=== PATIENT | female | born 1945 | race Caucasian/White ===

== ENCOUNTER 2016-07-15 09:25 | Emergency (ER) | payer OTHER, MEDICAID ==
[~2016-07-15] VITALS: Ht 170.2 cm; Wt 138.2 kg
[~2016-07-15 09:25] MED LIST: ALBU18HF INHALATION; AMLO-147 PO; ASPI-664 PO; ATOR80TA75 PO; BENZ-5 PO; BUME1TAB18 PO; CLOP75TA4 PO; DOCU100C26 PO; FENO160T10 PO; GABA-526 PO; INSU100C SQ; IPRA3AMP INHALATION; LEVO100T87 PO; MAGN400T28 PO; METO-448 PO; NEPH PO; NIAC1000 PO; OMEG1CAP2 PO; PANT40TA4 PO; POLY17PO6 PO; ROPI8TAB3 PO; SERT50TA6 PO; TEMA15CA PO; TRAM-40 PO; TRAM50TA2 PO; TRAZ100T15 PO
[2016-07-15 09:34] VITALS: Ht 170.2 cm; Wt 138.2 kg
[2016-07-15] MEDS ORDERED: ALBUTEROL 0.5% (NEB) 2.5 MG/0.5 ML AMP INH ONE (11:00)
[2016-07-15] MEDS ORDERED: IPRATROPIUM (NEB) 0.5 MG/2.5 ML AMP INH ONE (11:00)
[2016-07-15] MEDS ORDERED: METHYLPREDNISOLONE 125 MG INJ IM ONE (11:00)
[2016-07-15] MEDS ORDERED: AMLO-145 PO (11:14)
[2016-07-15] MEDS ORDERED: TEMA30CA PO (11:16)
[2016-07-15] MEDS ORDERED: BUME2TAB18 PO (11:17)
[2016-07-15] MEDS ORDERED: HYDR-905 PO (11:20)
[2016-07-15] MEDS ORDERED: METO5TAB65 PO (11:21)
[2016-07-15] MEDS ORDERED: LIDO5CRE6 TP (11:25)
[2016-07-15] MEDS ORDERED: MUPI15CR9 TOP (11:25)
[2016-07-15] MEDS ORDERED: DICL100G37 TOP (11:26)
[2016-07-15] MEDS ORDERED: CLOT15CR6 TOP (11:26)
[2016-07-15] MEDS ORDERED: FLUO60OI5 TOP (11:27)
--- NOTE | 2016-07-15 13:08 | RADRPT ---
PROCEDURE: XR Chest. CLINICAL INDICATION: Dyspnea, cough TECHNIQUE: Single frontal chest x-ray. COMPARISON: 12/12/2015 FINDINGS: No acute infiltrate, pleural effusion or pneumothorax is identified. There is stable mild cardiomeg fracisco. Aortic atherosclerotic calcification is noted. The osseous structures are remarkable for dege nerative spondylosis of the spine. IMPRESSION: 1. Stable mild cardiomegaly and aortic atherosclerosis. 2. No evidence of acute cardiopulmonary process. RPTAT: QQ .Sid Myles MD, MD Date Time Electronically viewed and signed by .Sid Myles MD, MD on 07/15/2016 13:08 .R/
[2016-07-15] MEDS ORDERED: ALBU8.5H3 INH (14:26)
[2016-07-15] MEDS ORDERED: HYDR15SO8 PO (14:26)
[2016-07-15] MEDS ORDERED: AZIT250T94 PO (14:26)
[2016-07-15] MEDS ORDERED: PRED20TA PO (14:26)
--- NOTE | 2016-07-15 14:32 | ERD ---
ER Documentation Chief Complaint Date/Time DATE: 07/15/16 TIME: 14:29 Chief Complaint BROUGHT IN VIA EMS FROM HOME DUE TO COUGH AND CONGESTION TODAY HPI This is a 71-year-old female who says she woke up this morning having some cough and congestion. No shortness of breath no fever. She states she was fine last night when she went to bed. She states that the cough is nonproductive. She has no body aches or runny nose no sore throat no abdominal pain nausea vomiting diarrhea. She says breathing in too much will induce a cough. ROS All systems reviewed and are negative except as per history of present illness. Medications Home Meds Active Scripts Hydrocodone Bit-Acetaminophen* (Lortab* Liq) 7.5 Mg-325 Mg/15 Ml Solution, 15 ML PO Q4H Y for PAIN, #120 ML Prov:MIKE LANGFORD DO 07/15/16 Albuterol Sulfate* (Proair HFA*) 8.5 Gm Hfa.aer.ad, 2 PUFF INH Q4, #1 INHALER Prov:MIKE LANGFORD DO 07/15/16 Prednisone* (Prednisone*) 20 Mg Tab, 60 MG PO DAILY for 5 Days, TAB Prov:MIKE LANGFORD DO 07/15/16 Azithromycin* (Zithromax*) 250 Mg Tablet, 250 MG PO .ZPACK DIRECTED, #6 TAB TAKE 500 MG (2 TABS) THE FIRST DAY THEN 250 MG (1 TAB) DAYS 2-5 Prov:MIKE LANGFORD DO 07/15/16 Reported Medications Fluocinonide* (Fluocinonide* Oint) 0.05%-60 Gm Oint..gm., 1 APPLIC TOP DAILY, EA 07/15/16 Clotrimazole-Betamethasone Diprop (Clotrimazole-Betamethasone Diprop) 15 Gm Cream.gm., 1 APPLIC TOP BID, TUB 07/15/16 Diclofenac Sodium* (Voltaren* Gel) 1% -100 Gm Gel, 2 GM TOP BID, #1 TUB 07/15/16 Mupirocin Calcium* (Mupirocin*) 2% - 15 Gram Cream..g., 1 APPLIC TOP TID, #1 TUB 07/15/16 Lidocaine (ANECREAM) 5 Gm Cream..g., 5 GM TP Q6 07/15/16 Metolazone* (Metolazone*) 5 Mg Tablet, 5 MG PO MONDAYS, TAB 07/15/16 Hydrocodone/Acetaminophen ([place] 7.5-325 Tablet) 1 Each Tablet, 1 EACH PO BID Y for SEVERE PAIN LEVEL 7-10, TAB 07/15/16 Bumetanide* (Bumetanide*) 2 Mg Tablet, 2 MG PO BID, TAB 07/15/16 Temazepam* (Temazepam*) 30 Mg Capsule, 30 MG PO HS Y for INSOMNIA, CAP 07/15/16 Amlodipine Besylate* (Amlodipine Besylate*) 5 Mg Tablet, 5 MG PO DAILY, #30 TAB 07/15/16 Levothyroxine Sodium* (Levothyroxine Sodium*) 100 Mcg Tablet, 100 MCG PO BEFORE BREAKFAST, #30 TAB 05/08/16 Pantoprazole* (Pantoprazole*) 40 Mg Tablet.dr, 40 MG PO AC BREAKFAST, TAB 05/08/16 [place]-3 Acid Ethyl Esters (Lovaza) 1 Gm Capsule, 2 GM PO BID, CAP 05/08/16 Benzonatate* (Benzonatate*) 100 Mg Capsule, 100 MG PO TID Y for COUGH, CAP 05/08/16 Ipratropium-Albuterol (Ipratropium-Albuterol) 0.5-3 Mg/3 Ml Ampul.neb, 3 ML INHALATION Q4, #30 VIAL 02/07/16 Albuterol Sulfate* (Ventolin HFA*) 18 Gm Hfa.aer.ad, 2 PUFF INHALATION Q4H, #1 INHALER 02/07/16 Insulin Lispro (Humalog) 100 Unit/1 Ml Cartridge, 150 UNIT SQ DAILY 02/07/16 Trazodone Hcl* (Trazodone Hcl*) 100 Mg Tablet, 100 MG PO QHS, #30 TAB 02/07/16 Tramadol Hcl* (Ultram*) 50 Mg Tablet, 50 MG PO Q12 Y for PAIN, TAB 12/13/15 Sertraline Hcl* (Sertraline Hcl*) 50 Mg Tablet, 50 MG PO DAILY, #30 TAB 12/13/15 Ropinirole HCl* (Ropinirole ER*) 8 Mg Tab.er.24h, 8 MG PO QHS, TAB.SA 12/13/15 Niacin* (Niacin* ER) 1,000 Mg Tablet.sa, 1000 MG PO QHS, #30 TAB 12/13/15 Metoprolol Tartrate* (Lopressor*) 25 Mg Tab, 25 MG PO BID, #60 TAB 12/13/15 Gabapentin* (Gabapentin*) 600 Mg Tablet, 600 MG PO TID, #90 TAB 12/13/15 Fenofibrate (Triglide) 160 Mg Tablet, 160 MG PO DAILY, TAB 12/13/15 Docusate Sodium* (Doc-Q-Lace*) 100 Mg Capsule, 100 MG PO BID Y for CONSTIPATION , CAP 12/13/15 Clopidogrel Bisulfate* (Clopidogrel Bisulfate*) 75 Mg Tablet, 75 MG PO DAILY, # 30 TAB 12/13/15 Atorvastatin* (Atorvastatin*) 80 Mg Tablet, 80 MG PO QHS, #30 TAB 12/13/15 Aspirin* (Aspirin* (EC)) 81 Mg Tablet.dr, 81 MG PO DAILY, TAB 12/13/15 Discontinued Reported Medications Magnesium Oxide* (Magnesium Oxide*) 400 Mg Tablet, 400 MG PO BID, TAB 05/08/16 Polyethylene Glycol* (Miralax*) 17 Gm Powd.pack, 17 GM PO DAILY, #30 PACKET 05/08/16 Amlodipine Besylate* (Amlodipine Besylate*) 10 Mg Tablet, 10 MG PO DAILY, #30 TAB 05/08/16 Temazepam* (Temazepam*) 15 Mg Capsule, 30 MG PO HS Y for INSOMNIA, CAP 12/13/15 Multivit/Ca Carb/B Cmplx/Fa* (Heather-Mary Anne*) 1 Tab Tab, 1 TAB PO DAILY, TAB 12/13/15 Bumetanide* (Bumetanide*) 1 Mg Tablet, 1 MG PO BID, TAB 12/13/15 Discontinued Scripts Tramadol HCl (Tramadol HCl) 50 Mg Tablet, 50 MG PO Q6 Y for PAIN, #20 TAB Prov:DAVONTE MATHIS MD 05/08/16 Allergies Allergies: Coded Allergies: lovastatin (Verified Allergy, Unknown, 05/08/16) rosuvastatin (Verified Allergy, Unknown, 05/08/16) PMhx/Soc History of Surgery: Yes (LTKR, R fem sx, L fem sx with metal, stent placement, cholecystectomy) Anesthesia Reaction: No Hx Neurological Disorder: No Hx Respiratory Disorders: Yes (sleep apnea) Hx Cardiac Disorders: Yes (CHF, past heart attack, HTN, CAD, HDL) Hx Psychiatric Problems: Yes (DEPRESSION) Hx Miscellaneous Medical Probl: Yes (DM, dyslipidemia, CKD,uterine fibroid) Hx Alcohol Use: No Hx Substance Use: No Hx Tobacco Use: No Smoking Status: Never smoker FmHx Family History: No coronary disease Physical Exam Vitals Vital Signs Date Time Temp Pulse Resp B/P Pulse Ox O2 Delivery O2 Flow Rate FiO2 07/15/16 13:15 73 19 96/76 100 Nasal Cannula 07/15/16 11:01 62 20 94 Nasal Cannula 2.0 07/15/16 09:34 98.4 73 18 121/58 97 Physical Exam Const: Well-developed, well-nourished Head: Atraumatic, normocephalic Eyes: Normal Conjunctiva, PERRLA, EOMI, normal sclera, no nystagmus ENT: Normal External Ears, Nose and Mouth, moist mucus membranes. Neck: Full range of motion. No meningismus, no lymphadenopathy. Resp: Clear to auscultation bilaterally, no wheezing, rhonchi, rales Cardio: Regular rate and rhythm, no murmurs, S1 S2 present Abd: Soft, non tender x 4, non distended. Normal bowel sounds, no guarding or rebound, no pulsitile abdominal masses or bruits Skin: No petechiae or rashes, no ecchymosis , no maculopapular rash Back: No midline or flank tenderness Ext: No cyanosis, or edema, FROM x 4, normal inspection, neurovascularly intact x 4 Neur: Awake and alert, STR 5/5 x 4, sensation intact x 4, no focal findings, cerebellum intact Psych: Normal Mood and Affect Results 24 hrs Current Medications Medications (Trade) Dose Ordered Sig/Bucky Route PRN Reason Start Time Stop Time Status Last Admin Dose Admin Methylprednisolone Sodium Succinate (Solu-Medrol) 125 mg ONCE ONCE IM 07/15/16 11:00 07/15/16 11:01 DC 07/15/16 10:57 Albuterol (Proventil 0.5% (Neb)) 7.5 mg ONCE ONCE INH 07/15/16 11:00 07/15/16 11:01 DC 07/15/16 11:00 Ipratropium [place] (Atrovent 0.02% (Neb)) 1.5 mg ONCE ONCE INH 07/15/16 11:00 07/15/16 11:01 DC 07/15/16 11:00 Procedures/MDM PROCEDURE: XR Chest. CLINICAL INDICATION: Dyspnea, cough TECHNIQUE: Single frontal chest x-ray. COMPARISON: 12/12/2015 FINDINGS: No acute infiltrate, pleural effusion or pneumothorax is identified. There is stable mild cardiomegaly. Aortic atherosclerotic calcification is noted. The osseous structures are remarkable for degenerative spondylosis of the spine. IMPRESSION: 1. Stable mild cardiomegaly and aortic atherosclerosis. 2. No evidence of acute cardiopulmonary process. RPTAT: QQ .Sid Myles MD, MD Date Time Electronically viewed and signed by .Sid Myles MD, MD on 07/15/2016 13: 08 .R/ CC: MIKE LANGFORD DO No evidence of pneumonia. This patient has bronchitis will treat appropriately with Zithromax, prednisone, albuterol inhaler and Lortab elixir Vitals are stable discharged in stable condition Departure Diagnosis: Primary Impression: Bronchitis Condition: Stable Patient Instructions: Bronchitis, Antiobiotic Treatment (Adult) MIKE LANGFORD DO Jul 15, 2016 14:32
[2016-07-15 15:13] VITALS: BP 117/62; PULSE 78; RESP 18
== END 2016-07-15 15:26 | disposition home or self-care (01) ==
LOC: E/R 09:25
DX: J20.9 Acute bronchitis, unspecified (principal); I12.9 Hypertensive chronic kidney disease with stage 1 through stage 4 chronic kidney disease, or unspecified chronic kidney disease; N18.9 Chronic kidney disease, unspecified; I25.10 Atherosclerotic heart disease of native coronary artery without angina pectoris; I50.9 Heart failure, unspecified; E11.9 Type 2 diabetes mellitus without complications; Z79.82 Long term (current) use of aspirin; Z96.652 Presence of left artificial knee joint; Z95.5 Presence of coronary angioplasty implant and graft; Z79.4 Long term (current) use of insulin
CPT/HCPCS: 71010; 82962; 94644; 96372; 99284; J2930

== ENCOUNTER 2016-07-21 09:04 | Inpatient (IN) | payer OTHER ==
[2016-07-21] VITALS (7 sets, daily range): BP systolic 113–129; BP diastolic 50–56; PULSE 66–68; RESP 18–20; Ht 170.2 cm; Wt 126.3 kg
[~2016-07-21] VITALS: Ht 170.2 cm; Wt 126.3 kg
[~2016-07-21 09:04] MED LIST changes: +ALBU8.5H3 INH; +AMLO-145 PO; -AMLO-147 PO; +AZIT250T94 PO; -BUME1TAB18 PO; +BUME2TAB18 PO; +CLOT15CR6 TOP; +DICL100G37 TOP; +FLUO60OI5 TOP; +HYDR-905 PO; +HYDR15SO8 PO; +LIDO5CRE6 TP; -MAGN400T28 PO; +METO5TAB65 PO; +MUPI15CR9 TOP; -NEPH PO; -POLY17PO6 PO; +PRED20TA PO; -TEMA15CA PO; +TEMA30CA PO; -TRAM50TA2 PO
[2016-07-21] MEDS ORDERED: SOD CHLORIDE 0.9% 1,000 ML IV STA ×2 (09:33→10:29)
[2016-07-21 10:04] LABS: BASOPHILS % 0.2 % (0.0-2.0); EOSINOPHILS % 0.2 % (0.0-7.0); HEMATOCRIT 40.6 % (37.0-47.0); HEMOGLOBIN 13.3 g/dl (12.0-16.0); LYMPHOCYTES # 1.3 10^3/ul (0.8-2.9); LYMPHOCYTES % 11.4 % (15.0-51.0); MEAN CORPUSCULAR HEMOGLOBIN 28.4 pg (29.0-33.0); MEAN CORPUSCULAR HGB CONC 32.8 g/dl (32.0-37.0); MEAN CORPUSCULAR VOLUME 86.7 fl (82.0-101.0); MEAN PLATELET VOLUME 8.2 fl (7.4-10.4); MONOCYTE # 0.9 10^3/ul (0.3-0.9); NEUTROPHIL # 9.3 10^3/ul (1.6-7.5); NEUTROPHILS % 80.2 % (39.0-77.0); PLATELET COUNT 339 10^3/UL (140-440); RED BLOOD COUNT 4.68 10^6/ul (4.20-5.40); RED CELL DISTRIBUTION WIDTH 15.8 % (11.5-14.5); UNCORRECTED WBC 11.6 10^3/ul (4.8-10.8); WHITE BLOOD COUNT 11.6 10^3/ul (4.8-10.8)
[2016-07-21 10:08] LABS: CONDITION 1; LH ANALYZER COMMENTS 1
[2016-07-21 10:15] LABS: POTASSIUM 4.4 mmol/L (3.5-5.1)
[2016-07-21 10:17] LABS: CREATININE 3.07 mg/dl (0.44-1.00)
[2016-07-21 10:18] LABS: CALCIUM 9.5 mg/dl (8.4-10.2); MAGNESIUM 2.9 mg/dl (1.7-2.5); PHOSPHORUS 6.4 mg/dl (2.5-4.9)
[2016-07-21 10:50] LABS: ADD UMIC YES; URINE BILIRUBIN (Dip) NEGATIVE (NEGATIVE); URINE BLOOD (Dip) 2+ (NEGATIVE); URINE COLOR LT. YELLOW (YELLOW); URINE GLUCOSE (Dip) >=1000 % (NEGATIVE); URINE KETONES (Dip) NEGATIVE (NEGATIVE); URINE LEUKOCYTE ESTERASE (Dip) 1+ (NEGATIVE); URINE NITRITE (Dip) NEGATIVE (NEGATIVE); URINE TOTAL PROTEIN (Dip) NEGATIVE (NEGATIVE); URINE UROBILINOGEN (Dip) 0.2 E.U./dL (0.1-1.0)
--- NOTE | 2016-07-21 10:59 | RADRPT ---
PROCEDURE: XR Knee. CLINICAL INDICATION: Trauma, pain TECHNIQUE: AP, lateral and oblique view of the right knee were obtained. The images reviewed on a PACS workstation. COMPARISON: None. FINDINGS: The patient is status post plate, screw, an intramedullary matt fixation of the femur. There is mode rate to severe medial femoral tibial joint space narrowing. There is a vertical fracture line throu gh the lateral tibia, extending to the articular surface. There is minimal distraction of the artic ular surface, up to 2 mm. There is moderate patellofemoral degenerative change. IMPRESSION: 1. Vertical fracture through the lateral tibial plateau, with minimal distraction. 2. 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 RPTAT: HBST .Ricardo Interiano MD, Date Time Electronically viewed and signed by .Ricardo Interiano MD, on 07/21/2016 10:58 .T/
[2016-07-21 11:01] LABS: BACTERIA,URINE FEW; SQUAMOUS EPITHELIAL CELL,UR FEW
--- NOTE | 2016-07-21 11:20 | ERA ---
ER Documentation Chief Complaint Date/Time DATE: 07/21/16 TIME: 11:20 Chief Complaint BROUGHT IN VIA EMS DUE TO FALL HPI 71y/o female with a history of insulin-dependent diabetes mellitus on insulin pump, chronic kidney disease, coronary artery disease status post PCI, obstructive sleep apnea on CPAP, dyslipidemia, morbid obesity, depression and anxiety brought to the ED by rescue ambulance complaining of worsening, moderate to severe sharp, nonradiating right knee pain after a slip and fall. She is unable to weight-bear due to pain, no relieving factors. She was seen in the ED 07/15/2016 for bronchitis and since discharge has been feeling weak and lightheaded and fell today. Denies chest pain or palpitations. No syncope or LOC. Denies headache or neck pain. Ongoing, mild nonproductive cough but no shortness of breath or wheezing. No chest pain or palpitations. Denies abdominal pain, nausea, vomiting, diarrhea or constipation. Chronic indwelling Garcia due to incontinence. Denies calf pain or swelling. No fevers or chills. ROS All systems reviewed and are negative except as per history of present illness. Medications Home Meds Active Scripts Albuterol Sulfate* (Proair HFA*) 8.5 Gm Hfa.aer.ad, 2 PUFF INH Q4, #1 INHALER Prov:MIKE LANGFORD DO 07/15/16 Prednisone* (Prednisone*) 20 Mg Tab, 60 MG PO DAILY for 5 Days, TAB Prov:MIKE LANGFORD DO 07/15/16 Azithromycin* (Zithromax*) 250 Mg Tablet, 250 MG PO .CAROLINE DIRECTED, #6 TAB TAKE 500 MG (2 TABS) THE FIRST DAY THEN 250 MG (1 TAB) DAYS 2-5 Prov:MIKE LANGFORD DO 07/15/16 Reported Medications Fluocinonide* (Fluocinonide* Oint) 0.05%-60 Gm Oint..gm., 1 APPLIC TOP DAILY, EA 07/15/16 Clotrimazole-Betamethasone Diprop (Clotrimazole-Betamethasone Diprop) 15 Gm Cream.gm., 1 APPLIC TOP BID, TUB 07/15/16 Diclofenac Sodium* (Voltaren* Gel) 1% -100 Gm Gel, 2 GM TOP BID, #1 TUB 07/15/16 Mupirocin Calcium* (Mupirocin*) 2% - 15 Gram Cream..g., 1 APPLIC TOP TID, #1 TUB 07/15/16 Lidocaine (ANECREAM) 5 Gm Cream..g., 5 GM TP Q6 07/15/16 Metolazone* (Metolazone*) 5 Mg Tablet, 5 MG PO MONDAYS, TAB 07/15/16 Hydrocodone/Acetaminophen ([place] 7.5-325 Tablet) 1 Each Tablet, 1 EACH PO BID Y for SEVERE PAIN LEVEL 7-10, TAB 07/15/16 Bumetanide* (Bumetanide*) 2 Mg Tablet, 2 MG PO BID, TAB 07/15/16 Temazepam* (Temazepam*) 30 Mg Capsule, 30 MG PO HS Y for INSOMNIA, CAP 07/15/16 Amlodipine Besylate* (Amlodipine Besylate*) 5 Mg Tablet, 5 MG PO DAILY, #30 TAB 07/15/16 Levothyroxine Sodium* (Levothyroxine Sodium*) 100 Mcg Tablet, 100 MCG PO BEFORE BREAKFAST, #30 TAB 05/08/16 Pantoprazole* (Pantoprazole*) 40 Mg Tablet.dr, 40 MG PO AC BREAKFAST, TAB 05/08/16 [place]-3 Acid Ethyl Esters (Lovaza) 1 Gm Capsule, 2 GM PO BID, CAP 05/08/16 Benzonatate* (Benzonatate*) 100 Mg Capsule, 100 MG PO TID Y for COUGH, CAP 05/08/16 Ipratropium-Albuterol (Ipratropium-Albuterol) 0.5-3 Mg/3 Ml Ampul.neb, 3 ML INHALATION Q4, #30 VIAL 02/07/16 Albuterol Sulfate* (Ventolin HFA*) 18 Gm Hfa.aer.ad, 2 PUFF INHALATION Q4H, #1 INHALER 02/07/16 Insulin Lispro (Humalog) 100 Unit/1 Ml Cartridge, 150 UNIT SQ DAILY 02/07/16 Trazodone Hcl* (Trazodone Hcl*) 100 Mg Tablet, 100 MG PO QHS, #30 TAB 02/07/16 Tramadol Hcl* (Ultram*) 50 Mg Tablet, 50 MG PO Q12 Y for PAIN, TAB 12/13/15 Sertraline Hcl* (Sertraline Hcl*) 50 Mg Tablet, 50 MG PO DAILY, #30 TAB 12/13/15 Ropinirole HCl* (Ropinirole ER*) 8 Mg Tab.er.24h, 8 MG PO QHS, TAB.SA 12/13/15 Niacin* (Niacin* ER) 1,000 Mg Tablet.sa, 1000 MG PO QHS, #30 TAB 12/13/15 Metoprolol Tartrate* (Lopressor*) 25 Mg Tab, 25 MG PO BID, #60 TAB 12/13/15 Gabapentin* (Gabapentin*) 600 Mg Tablet, 600 MG PO TID, #90 TAB 12/13/15 Fenofibrate (Triglide) 160 Mg Tablet, 160 MG PO DAILY, TAB 12/13/15 Docusate Sodium* (Doc-Q-Lace*) 100 Mg Capsule, 100 MG PO BID Y for CONSTIPATION , CAP 12/13/15 Clopidogrel Bisulfate* (Clopidogrel Bisulfate*) 75 Mg Tablet, 75 MG PO DAILY, # 30 TAB 12/13/15 Atorvastatin* (Atorvastatin*) 80 Mg Tablet, 80 MG PO QHS, #30 TAB 12/13/15 Aspirin* (Aspirin* (EC)) 81 Mg Tablet.dr, 81 MG PO DAILY, TAB 12/13/15 Discontinued Reported Medications Magnesium Oxide* (Magnesium Oxide*) 400 Mg Tablet, 400 MG PO BID, TAB 05/08/16 Polyethylene Glycol* (Miralax*) 17 Gm Powd.pack, 17 GM PO DAILY, #30 PACKET 05/08/16 Amlodipine Besylate* (Amlodipine Besylate*) 10 Mg Tablet, 10 MG PO DAILY, #30 TAB 05/08/16 Temazepam* (Temazepam*) 15 Mg Capsule, 30 MG PO HS Y for INSOMNIA, CAP 12/13/15 Multivit/Ca Carb/B Cmplx/Fa* (Heather-Mary Anne*) 1 Tab Tab, 1 TAB PO DAILY, TAB 12/13/15 Bumetanide* (Bumetanide*) 1 Mg Tablet, 1 MG PO BID, TAB 12/13/15 Discontinued Scripts Hydrocodone Bit-Acetaminophen* (Lortab* Liq) 7.5 Mg-325 Mg/15 Ml Solution, 15 ML PO Q4H Y for PAIN, #120 ML Prov:MIKE LANGFORD DO 07/15/16 Tramadol HCl (Tramadol HCl) 50 Mg Tablet, 50 MG PO Q6 Y for PAIN, #20 TAB Prov:DAVONTE MATHIS MD 05/08/16 Allergies Allergies: Coded Allergies: lovastatin (Verified Allergy, Unknown, 05/08/16) rosuvastatin (Verified Allergy, Unknown, 05/08/16) PMhx/Soc Reviewed in chart. As per HPI. History of Surgery: Yes (LTKR, R fem sx, L fem sx with metal, stent placement, cholecystectomy) Anesthesia Reaction: No Hx Neurological Disorder: No Hx Respiratory Disorders: Yes (sleep apnea) Hx Cardiac Disorders: Yes (CHF, past heart attack, HTN, CAD, HDL) Hx Psychiatric Problems: Yes (DEPRESSION) Hx Miscellaneous Medical Probl: Yes (DM, dyslipidemia, CKD,uterine fibroid) Hx Alcohol Use: No Hx Substance Use: No Hx Tobacco Use: No Smoking Status: Never smoker FmHx Reviewed in chart. No stroke or cancer Physical Exam Vitals Vital Signs Date Time Temp Pulse Resp B/P Pulse Ox O2 Delivery O2 Flow Rate FiO2 07/21/16 13:05 58 19 139/69 97 Nasal Cannula 2.0 07/21/16 10:38 57 18 87/69 100 Nasal Cannula 2.0 07/21/16 09:27 97.8 59 16 123/74 95 Physical Exam Const: Alert, mild distress due to pain. Ill appearing Head: Atraumatic Eyes: Normal Conjunctiva. LADARIUS, EOMI ENT: Normal External Ears, Nose and Mouth. MM dry. Neck: Full range of motion. Nontender. No meningismus. Resp: BS equal and clear to auscultation bilaterally Cardio: Regular rate and rhythm, no murmurs Abd: Soft, obese, non tender, non distended. Normal bowel sounds. Insulin pump LLQ. Skin: No petechiae or rashes Back: No midline or flank tenderness Ext: No cyanosis, or edema. Right knee: Tender, swollen with decreased ROM. No ecchymoses or deformity. Distal NV intact. Neur: Awake and alert. Nonfocal exam. Psych: Normal Mood and Affect Result Diagram: 07/21/1645 07/21/1645 Results 24 hrs Laboratory Tests Test 07/21/16 09:33 07/21/16 09:37 07/21/16 09:45 07/21/16 10:32 Jairo Test N/A Arterial Blood Date Drawn 07/21/2016 11:29:42 AM Arterial Blood Gas Puncture Site VENOUS LINE Blood Gas Actual Respiration Rate 20 Blood Gas Modality ROOM AIR Blood Gas Notified Time 07/21/2016 11:38:45 AM Blood Gas Notified Whom SHAZIA RT Blood Gas Specimen Source Blood venous Blood Gas Temperature 37.0C Carboxyhemoglobin 1.1% FiO2 21.0% Venous Blood Base Excess 2.2mmol/L Venous Blood HCO3 29.6mmol/L Venous Blood Methemoglobin 1.1% Venous Blood Oxygen Saturation 19.6mmHG Venous Blood Oxyhemoglobin 19.2% Venous Blood Total Hemoglobin 13.2g/dl Venous Blood pCO2 (Temp Corrected) 58.7mmHG Venous Blood pH 7.320 Venous Blood pO2 (Temp Corrected) 15.8mmHG Bedside Glucose > 595mg/dL > 595mg/dL Anion Gap 21 Basophils # 0.010^3/ul Basophils % 0.2% Blood Morphology Comment Blood Urea Nitrogen 90mg/dl Calcium Level 9.5mg/dl Carbon Dioxide Level 33mmol/L Chloride Level 86mmol/L Creatinine 3.07mg/dl Eosinophils # 0.010^3/ul Eosinophils % 0.2% Glucose Level 684mg/dl Hematocrit 40.6% Hemoglobin 13.3g/dl Hemoglobin A1c 11.2% Lymphocytes # 1.310^3/ul Lymphocytes % 11.4% Magnesium Level 2.9mg/dl Mean Corpuscular Hemoglobin 28.4pg Mean Corpuscular Hemoglobin Concent 32.8g/dl Mean Corpuscular Volume 86.7fl Mean Platelet Volume 8.2fl Monocytes # 0.910^3/ul Monocytes % 8.0% Neutrophils # 9.310^3/ul Neutrophils % 80.2% Nucleated Red Blood Cells # 0.010^3/ul Nucleated Red Blood Cells % 0.0/100WBC Phosphorus Level 6.4mg/dl Platelet Count 03480^3/UL Potassium Level 4.4mmol/L Red Blood Count 4.6810^6/ul Red Cell Distribution Width 15.8% Sodium Level 136mmol/L Urine Bacteria FEW Urine Bilirubin NEGATIVE Urine Clarity SLIGHTLY CLOUDY Urine Color LT. YELLOW Urine Glucose >=1000% Urine Hemoglobin 2+ Urine Ketones NEGATIVE Urine Leukocyte Esterase 1+ Urine Microscopic RBC 5-10/HPF Urine Microscopic WBC 10-25/HPF Urine Nitrite NEGATIVE Urine Specific [place] 1.015 Urine Squamous Epithelial Cells FEW Urine Total Protein NEGATIVE Urine Urobilinogen 0.2 E.U./dL Urine pH 5.0 White Blood Count 11.610^3/ul Test 07/21/16 13:28 Bedside Glucose 573mg/dL Current Medications Medications (Trade) Dose Ordered Sig/Bucky Route PRN Reason Start Time Stop Time Status Last Admin Dose Admin Sodium Chloride 1,000 ml @ 1,000 mls/hr Q1H STAT IV 07/21/16 09:33 07/21/16 13:52 DC 07/21/16 09:47 Sodium Chloride (NS) 1,000 ml @ 1,000 mls/hr Q1H STAT IV 07/21/16 10:29 07/21/16 13:52 DC 07/21/16 14:20 Insulin Aspart (Novolog Insulin Pen) 10 unit ONCE ONCE SC 07/21/16 11:30 07/21/16 13:52 DC 07/21/16 12:57 IV Flush (NS 3 ml) 3 ml PER PROTOCOL IV 07/21/16 13:00 Ondansetron HCl (Zofran Inj) 4 mg Q6H PRN IV NAUSEA AND/OR VOMITING 07/21/16 13:00 07/21/16 14:19 Acetaminophen (Tylenol Tab) 650 mg Q6H PRN PO PAIN LEVEL 1-3 OR FEVER 07/21/16 13:00 Acetaminophen/ Hydrocodone Bitart ([place] (5/325)) 2 tab Q6H PRN PO SEVERE PAIN LEVEL 7-10 07/21/16 13:00 Hydromorphone HCl (Dilaudid) 0.5 mg Q4H PRN IV SEVERE PAIN LEVEL 7-10 07/21/16 13:00 07/21/16 14:19 Magnesium Hydroxide (Milk Of Mag) 30 ml DAILY PRN PO CONSTIPATION 07/21/16 13:00 Bisacodyl (Dulcolax) 5 mg DAILY PRN PO CONSTIPATION 07/21/16 13:00 Famotidine (Pepcid) 20 mg Q24H PO 07/21/16 21:00 Enoxaparin Sodium (Lovenox) 40 mg DAILY SC 07/22/16 09:00 Amlodipine Besylate (Norvasc) 5 mg DAILY PO 07/22/16 09:00 Aspirin (Halfprin) 81 mg DAILY PO 07/22/16 09:00 Atorvastatin Calcium (Lipitor) 80 mg QHS PO 07/21/16 21:00 Benzonatate (Tessalon) 100 mg TID PRN PO COUGH 07/21/16 13:30 Clopidogrel Bisulfate (plaVIX) 75 mg DAILY PO 07/22/16 09:00 Gabapentin (Neurontin) 600 mg TID PO 07/21/16 21:00 Levothyroxine Sodium (Synthroid) 100 mcg BEFORE BREAKFAST PO 07/22/16 07:00 Metoprolol Tartrate (Lopressor) 25 mg BID PO 07/21/16 21:00 Sertraline HCl (Zoloft) 50 mg DAILY PO 07/22/16 09:00 Trazodone HCl (Desyrel) 100 mg QHS PO 07/21/16 21:00 Bumetanide (Bumex) 2 mg BID@06,18 PO 07/21/16 18:00 Fenofibrate 145 mg 145 mg DAILY PO 07/22/16 09:00 Levofloxacin/ Dextrose (Levaquin 750 Mg/ D5W 150 ml (Pmx)) 150 ml @ 100 mls/hr Q48H IVPB 07/21/16 14:00 07/21/16 14:19 Albuterol/ Ipratropium (Duoneb) 3 ml Q6HWA RESP THERAPY HHN 07/21/16 14:00 Albuterol/ Ipratropium (Duoneb) 3 ml Q2H RESP THERAPY PRN HHN sob 07/21/16 13:30 Insulin Aspart (Novolog Insulin Pen) NOVOLOG *MODERATE* ALGORITHM WITH MEALS BEDTIME SC 07/21/16 18:00 Insulin Glargine (Lantus) 32 unit BID@08,20 SC 07/21/16 20:00 Insulin Aspart (Novolog Insulin Pen) 32 unit WITH MEALS SC 07/21/16 18:00 Miscellaneous Information (* Miscellaneous Pharmacy Order) HYPOGLYCEMIA PROTOCOL w... ONCE ONCE XX 07/21/16 14:30 07/21/16 14:30 DC Miscellaneous Information (* Miscellaneous Pharmacy Order) Discontinue Glyburide, Glipizide,... ONCE ONCE XX 07/21/16 14:30 07/21/16 14:30 DC Miscellaneous Information (* Miscellaneous Pharmacy Order) Discontinue all previ... ONCE ONCE XX 07/21/16 14:30 07/21/16 14:30 DC Miscellaneous Information 1 ea NOTE XX 07/21/16 14:30 Glucose (Glutose) 15 gm Q15M PRN PO DECREASED GLUCOSE 07/21/16 14:30 Glucose (Glutose) 22.5 gm Q15M PRN PO DECREASED GLUCOSE 07/21/16 14:30 Dextrose (D50w Syringe) 25 ml Q15M PRN IV DECREASED GLUCOSE 07/21/16 14:30 Dextrose (D50w Syringe) 50 ml Q15M PRN IV DECREASED GLUCOSE 07/21/16 14:30 Glucagon (Glucagen) 1 mg Q15M PRN IM DECREASED GLUCOSE 07/21/16 14:30 Glucose (Glutose) 15 gm Q15M PRN BUCCAL DECREASED GLUCOSE 07/21/16 14:30 EKG: Ventricular bigeminy. Rate 66. No acute STTW changes. EP Interpretation: Abnormal EKG. IMAGING: PROCEDURE: XR Knee. CLINICAL INDICATION: Trauma, pain TECHNIQUE: AP, lateral and oblique view of the right knee were obtained. The images reviewed on a PACS workstation. COMPARISON: None. FINDINGS: The patient is status post plate, screw, an intramedullary matt fixation of the femur. There is moderate to severe medial femoral tibial joint space narrowing. There is a vertical fracture line through the lateral tibia, extending to the articular surface. There is minimal distraction of the articular surface, up to 2 mm. There is moderate patellofemoral degenerative change. IMPRESSION: 1. Vertical fracture through the lateral tibial plateau, with minimal distraction. 2. 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 RPTAT: HBST .Ricardo Interiano MD, MD Date Time Electronically viewed and signed by .Ricardo Interiano MD, on 07/21/2016 10:58 .T/ Procedures/MDM DOCUMENTS REVIEWED: ED nurse, prior ED, prior records ED COURSE: Normal saline 1 L bolus followed by 1 L/h. NovoLog 10 units subcu. MEDICAL DECISION MAKINy/o female with a history of insulin-dependent diabetes mellitus on insulin pump, chronic kidney disease, coronary artery disease status post PCI, obstructive sleep apnea on CPAP, dyslipidemia, morbid obesity, depression and anxiety brought to the ED by rescue ambulance complaining of worsening, moderate to severe sharp, nonradiating right knee pain after a slip and fall yesterday. Patient sustained a nondisplaced lateral tibial plateau fracture. She is also found to be severely hyperglycemic with hyperosmolar nonketotic state but no diabetic ketoacidosis likely exacerbated by recent corticosteroid use. No evidence of an occult infectious process. Acute on chronic renal failure. IV fluids and subq insulin. Endocrinology and Orthopedic Surgery consulted. Patient will be admitted to telemetry for further evaluation and management. Counseled patient regarding diagnosis, diagnostic results and plan for admission. CALLS/CONSULTS: Time 11:30, Dr. Evans, Recommends Telemetry Admission. He consulted Dr. Jj. CALLS/CONSULTS: Time 11:45, Dr. Gaxiola. Discussed with his on-call PA Vladimir Diop. Dr. Grayson is not available. CALLS/CONSULTS: Time 11:45, Dr. Brush. Will consult. CALLS/CONSULTS: Time 15:15, Dr Lopez. Informed regarding onset of ventricular bigeminy. Will follow. PATIENT CARE TRANSITIONED: Time: 11:45, Dr. Evans. Departure Diagnosis: Primary Impression: Type 2 diabetes mellitus with hyperglycemia Qualified Code: E11.65 - Type 2 diabetes mellitus with hyperglycemia, with long-term current use of insulin Additional Impressions: Closed fracture of lateral portion of right tibial plateau Qualified Code: S82.121A - Closed fracture of lateral portion of right tibial plateau, initial encounter History of coronary artery disease History of heart artery stent Obstructive sleep apnea Morbid obesity Qualified Code: E66.01 - Morbid obesity, unspecified obesity type Chronic indwelling Garcia catheter Ventricular bigeminy Condition: Serious DAVONTE MATHIS MD Jul 21, 2016 11:20
[2016-07-21] MEDS ORDERED: INSULIN ASPART [NOVOLOG] 3 ML PEN SC ONE (11:30)
[2016-07-21 11:38] LABS: MODE ROOM AIR; MetHgb Venous 1.1 %; Sample Type Blood venous; Venous COHb 1.1 %; Venous Fraction OxyHgb 19.2 %; Venous Total Hemglobin 13.2 g/dl
--- NOTE | 2016-07-21 11:45 | RADRPT ---
PROCEDURE: XR Chest. CLINICAL INDICATION: Chest pain TECHNIQUE: Single frontal view of the chest was obtained COMPARISON: 07/15/16 FINDINGS: The heart is enlarged. The thoracic aorta is calcified. There is a new left lower lobe infiltrate/atelectasis. There is no pneumothorax. RPTAT: AA IMPRESSION: New left lower lobe infiltrate/atelectasis. Mild cardiomegaly. Calcified aorta consistent with atherosclerotic disease. .Vinicio Root MD, MD Date Time Electronically viewed and signed by .Vinicio Root MD, MD on 07/21/2016 11:45 .S/
[2016-07-21] MEDS ORDERED: NACL 0.9% 3 ML SYG IV SCH (13:00)
[2016-07-21] MEDS ORDERED: ONDANSETRON 4 MG INJ IV PRN ×2 (13:00→14:30)
[2016-07-21] MEDS ORDERED: MAGNESIUM HYDROXIDE 30ML CUP PO PRN (13:00)
[2016-07-21] MEDS ORDERED: ACETAMINOPHEN 325 MG TAB PO PRN ×2 (13:00→14:30)
[2016-07-21] MEDS ORDERED: BISACODYL (EC) 5 MG TAB PO PRN (13:00)
[2016-07-21] MEDS ORDERED: ALBUTEROL/IPRATROPIUM (NEB) 3 ML AMP HHN PRN (13:30)
--- NOTE | 2016-07-21 14:10 | CONS ---
Date/Time of Note Date/Time of Note DATE: 07/21/16 TIME: 13:46 Assessment/Plan Assessment/Plan Problems: (1) Patient's noncompliance with other medical treatment and regimen Status: Chronic Comment: Usually I trust patients in hospital to manage their own diabetes with their insulin pump. However, given this patient's home A1c and the fact that she has not been bolusing the last several days, I am going to remove her pump and order diabetes education. (2) Type 2 diabetes mellitus with hyperglycemia Status: Chronic Comment: Start Lantus 32 units q12 and Novolog 32 qac plus moderate insulin corrective scale. Qualifiers: Qualified Code: E11.65 - Type 2 diabetes mellitus with hyperglycemia, with long-term current use of insulin (3) Hypothyroidism Status: Chronic Comment: Continue home dose of thyroid hormone Qualifiers: Qualified Code: E03.9 - Acquired hypothyroidism Consultation Date/Type/Reason Admit Date/Time 07/21/2016 @ 1400 Date of Consultation: Jul 21, 2016 Type of Consultation: Endocrinology Reason for Consultation T2DM out of control (OOC) Referring Provider: CLEMENT SETVENSON DECORATING INSTRUCTOR Hx of Present Illness 71 y/o C F w/ h/o T2DM, HTN, hyperlipidemia, CKD stage 3, urge incontinence, osteoporosis, hypothyroidism, pericarditis, lumbar disc disease, in [facility] until 1 week ago when she developed a lower respiratory infection w/ cough and SOB and GARCIA. 5 days ago pt. presented to [facility] for this. Was given z-pac and prednisone 60 mg/d. Pt. became very weak and decided to stop checking her BG or even taking her pre-meal insulin boluses. This am got up to empty her urine bag which she wears chronically for her incontinence and fell due to her weakness. Came to [facility] and was found to have tibial plateau fracture and also hyperglycemia w/ glucose > 600 mg/dL. Endo consulted. Of note, pt. receives her endo care in our office regularly and is on an insulin pump w/ last A1c 9.2 % 3 weeks ago. Constitutional: other (weak) Eyes: no complaints ENT: no complaints Respiratory: cough, shortness of breath Cardiovascular: no complaints Gastrointestinal: no complaints Genitourinary: no complaints Musculoskeletal: bone/joint pain (L knee ) Neurologic: no complaints Endocrine: other (dry mouth) Psychological: nl mood/affect, no complaints Past Medical History Medical History: diabetes, high cholesterol, hypertension, hypothyroid, renal disease, other (urge incontinence, osteoporosis, lumbar disc disease, pericarditis) Past Surgical History Past Surgical Hx: cholecystectomy, other (ORIF R hip, L TKA, R knee arthroscopy , R rotator cuff, lumbar lami x 3, [place]) Family History Significant Family History: no pertinent family hx Social History b. [place], raised [place], hs grad, ret'd medical device sales consultant, single, lives in Assisted Living Alcohol Use: none Smoking Status: Never smoker Drug Use: none Exam/Review of Systems Vital Signs Vitals VS - Last 72 Hours, by Label Date Time Temp Pulse Resp B/P Pulse Ox O2 Delivery O2 Flow Rate FiO2 07/21/16 13:05 58 19 139/69 97 Nasal Cannula 2.0 07/21/16 10:38 57 18 87/69 100 Nasal Cannula 2.0 07/21/16 09:27 97.8 59 16 123/74 95 Vital Signs Date Time Temp Pulse Resp B/P Pulse Ox O2 Delivery O2 Flow Rate FiO2 07/21/16 13:05 58 19 139/69 97 Nasal Cannula 2.0 07/21/16 09:27 97.8 Exam Constitutional: alert, obese, oriented Psych: nl mood/affect, no complaints Eyes: EOMI, PERRL, nl conjunctiva, nl sclera, No nl lids (proptosis B) ENMT: mucosa pink and moist, nl external ears & nose Neck: non-tender, supple, No bruits, No masses, No thyromegaly Respiratory: clear to auscultation, normal air movement Cardiovascular: nl pulses, regular rate and rhythm, No edema, No murmurs/extra sounds, No rub Gastrointestinal: bowel sounds, nl liver, spleen, non-tender, soft, No mass, No rebound or guarding Musculoskeletal: nl extremities to inspection Extremities: normal pulses, No cyanosis, No edema, No pitting pedal edema Neurological: EMAIL PRODUCTION SPECIALIST II-XII intact, nl mental status, nl speech, nl strength Additional Comments Bedside Glucose - 72 Hours Test 07/21/16 09:37 07/21/16 10:32 07/21/16 13:28 Bedside Glucose > 595mg/dL (70-220) *H > 595mg/dL (70-220) *H 573mg/dL (70-220) *H Results Result Diagram: 07/21/16 0945 07/21/16 0945 Results 24 hrs Laboratory Tests Test 07/21/16 09:33 07/21/16 09:37 07/21/16 09:45 07/21/16 10:32 Jairo Test N/A Arterial Blood Date Drawn 07/21/2016 11:29:42 AM Arterial Blood Gas Puncture Site VENOUS LINE Blood Gas Actual Respiration Rate 20 Blood Gas Modality ROOM AIR Blood Gas Notified Time 07/21/2016 11:38:45 AM Blood Gas Notified Whom SHAZIA RT Blood Gas Specimen Source Blood venous Blood Gas Temperature 37.0 Carboxyhemoglobin 1.1 FiO2 21.0 Venous Blood Base Excess 2.2 Venous Blood HCO3 29.6 H Venous Blood Methemoglobin 1.1 Venous Blood Oxygen Saturation 19.6 L Venous Blood Oxyhemoglobin 19.2 Venous Blood Total Hemoglobin 13.2 Venous Blood pCO2 (Temp Corrected) 58.7 H Venous Blood pH 7.320 L Venous Blood pO2 (Temp Corrected) 15.8 L Bedside Glucose > 595 *H > 595 *H Anion Gap 21 H Basophils # 0.0 Basophils % 0.2 Blood Morphology Comment Blood Urea Nitrogen 90 H Calcium Level 9.5 Carbon Dioxide Level 33 H Chloride Level 86 L Creatinine 3.07 H Eosinophils # 0.0 Eosinophils % 0.2 Glucose Level 684 *H Hematocrit 40.6 Hemoglobin 13.3 Hemoglobin A1c 11.2 H Lymphocytes # 1.3 Lymphocytes % 11.4 L Magnesium Level 2.9 H Mean Corpuscular Hemoglobin 28.4 L Mean Corpuscular Hemoglobin Concent 32.8 Mean Corpuscular Volume 86.7 Mean Platelet Volume 8.2 Monocytes # 0.9 Monocytes % 8.0 Neutrophils # 9.3 H Neutrophils % 80.2 H Nucleated Red Blood Cells # 0.0 Nucleated Red Blood Cells % 0.0 Phosphorus Level 6.4 H Platelet Count 339 Potassium Level 4.4 Red Blood Count 4.68 Red Cell Distribution Width 15.8 H Sodium Level 136 Urine Bacteria FEW Urine Bilirubin NEGATIVE Urine Clarity SLIGHTLY CLOUDY Urine Color LT. YELLOW Urine Glucose >=1000 Urine Hemoglobin 2+ H Urine Ketones NEGATIVE Urine Leukocyte Esterase 1+ H Urine Microscopic RBC 5-10 Urine Microscopic WBC 10-25 Urine Nitrite NEGATIVE Urine Specific [place] 1.015 Urine Squamous Epithelial Cells FEW Urine Total Protein NEGATIVE Urine Urobilinogen 0.2 E.U./dL Urine pH 5.0 White Blood Count 11.6 #H Test 07/21/16 13:28 Bedside Glucose 573 *H Medications Medications Current Medications Insulin Aspart (Novolog Insulin Pen) 10 unit ONCE ONCE SC Last administered on 07/21/16t 12:57; Admin Dose 10 UNIT; Start 07/21/16 at 11:30; Stop 07/21/16 at 11:31 Ondansetron HCl (Zofran Inj) 4 mg Q6H PRN IV NAUSEA AND/OR VOMITING; Start 05/25 at 13:00 Acetaminophen (Tylenol Tab) 650 mg Q6H PRN PO PAIN LEVEL 1-3 OR FEVER; Start at 13:00 Acetaminophen/ Hydrocodone Bitart ([place] (5/325)) 2 tab Q6H PRN PO SEVERE PAIN LEVEL 7-10; Start 07/21/16 at 13:00 Hydromorphone HCl (Dilaudid) 0.5 mg Q4H PRN IV SEVERE PAIN LEVEL 7-10; Start at 13:00 Magnesium Hydroxide (Milk Of Mag) 30 ml DAILY PRN PO CONSTIPATION; Start at 13:00 Bisacodyl (Dulcolax) 5 mg DAILY PRN PO CONSTIPATION; Start 07/21/16 at 13:00 Famotidine (Pepcid) 20 mg Q24H PO ; Start 07/21/16 at 21:00 Enoxaparin Sodium (Lovenox) 40 mg DAILY SC ; Start 07/22/16 at 09:00 Amlodipine Besylate (Norvasc) 5 mg DAILY PO ; Start 07/22/16 at 09:00 Aspirin (Halfprin) 81 mg DAILY PO ; Start 07/22/16 at 09:00 Atorvastatin Calcium (Lipitor) 80 mg QHS PO ; Start 07/21/16 at 21:00 Benzonatate (Tessalon) 100 mg TID PRN PO COUGH; Start 07/21/16 at 13:30 Clopidogrel Bisulfate (plaVIX) 75 mg DAILY PO ; Start 07/22/16 at 09:00 Gabapentin (Neurontin) 600 mg TID PO ; Start 07/21/16 at 21:00 Metoprolol Tartrate (Lopressor) 25 mg BID PO ; Start 2/12/17 at 21:00 Sertraline HCl (Zoloft) 50 mg DAILY PO ; Start 07/22/16 at 09:00 Trazodone HCl (Desyrel) 100 mg QHS PO ; Start 07/21/16 at 21:00 Bumetanide (Bumex) 2 mg BID@06,18 PO ; Start 07/21/16 at 18:00 Fenofibrate 145 mg 145 mg DAILY PO ; Start 07/22/16 at 09:00 Levofloxacin/ Dextrose (Levaquin 750 Mg/ D5W 150 ml (Pmx)) 150 ml @ 100 mls/hr Q48H IVPB ; Start 07/21/16 at 14:00 RADHA MORENO MD Jul 21, 2016 13:56
[2016-07-21] MEDS: HYDROmorphONE 1 MG/ML SYG IV PRN ×2 (14:19→22:32)
[2016-07-21] MEDS: LEVOFLOXACIN 750MG/D5W (PMX) 150 ML IVPB SCH (14:19)
[2016-07-21] MEDS ORDERED: GLUCOSE GEL 15 GRAM TUBE PO PRN ×2 (14:30)
[2016-07-21] MEDS ORDERED: GLUCAGON 1 MG INJ IM PRN (14:30)
[2016-07-21] MEDS ORDERED: DEXTROSE 50% 50 ML SYRINGE IV PRN ×2 (14:30)
[2016-07-21] MEDS ORDERED: GLUCOSE GEL 15 GRAM TUBE BUCCAL PRN (14:30)
[2016-07-21] MEDS: ALBUTEROL/IPRATROPIUM (NEB) 3 ML AMP HHN SCH ×2 (15:14→19:57)
[2016-07-21] MEDS ORDERED: INSULIN ASPART [NOVOLOG] 3 ML PEN SC SCH (17:00)
--- NOTE | 2016-07-21 17:32 | CONS ---
DATE OF ADMISSION: 07/21/2016 DATE OF CONSULTATION: TYPE OF CONSULTATION: Cardiac. HISTORY OF PRESENT ILLNESS: Danni is a 71-year-old woman with extensive cardiac history includin g congestive heart failure and history of PCI. She presents with what appears to be a mechanical fa ll resulting in injury to her right knee. I have been asked to evaluate her for possible presurgica l evaluation. She has not yet been evaluated by orthopedics. She denies any chest pain. She is short of breath with minimal exertion, extremely limited in her a bility to ambulate due to obesity, orthopedic problems as well as medical problems. REVIEW OF SYSTEMS: Negative except as per HPI. PAST MEDICAL HISTORY: Significant for diabetes mellitus with insulin pump, PCI in the past, congest alan heart failure, cholecystectomy, multiple orthopedic surgeries. PHYSICAL EXAMINATION: GENERAL: She is in no distress, although uncomfortable due to knee pain. VITAL SIGNS: Temperature 97.8, pulse 57, blood pressure 123/74, oxygen saturation 100% on 2 liters of nasal cannula. CARDIAC: Regular rate and rhythm. LUNGS: Clear. ABDOMEN: Obese, nontender. EXTREMITIES: Reveal no edema. Right leg is externally rotated. LABORATORY RESULTS: White count 11.6, hematocrit 40.6, platelet count 339. Sodium 136, potassium 4 .4, BUN 90, creatinine 3.0. Glucose 595. IMAGING: Knee x-ray shows a vertical fracture through the lateral tibial plate. ASSESSMENT: A patient with a tibial fracture, being evaluated by orthopedics for possible intervent ion. She has multiple comorbidities and is at high risk for perioperative complications due to her extremely debilitated state and multiple comorbidities including coronary artery disease, renal fail ure, and congestive heart failure. At this time, I will request an echocardiogram and EKG to get a better sense of her cardiac status. If felt to be necessary, it is unlikely that cardiac testing at this time will change her risk and she may well be optimized from a cardiac standpoint, although ce rtainly optimization of her electrolytes and blood sugar is warranted. Dictated By: THELMA ROBERTO/RO Conf#: [id number] DID#: [id number] CC: SUSIE ACKERMAN MD;*EndCC*
[2016-07-21] MEDS: BUMETANIDE 1 MG TAB PO SCH ×2 (17:56→18:00)
[2016-07-21] MEDS: INSULIN ASPART [NOVOLOG] 3 ML PEN SC SCH ×2 (17:58→21:11)
[2016-07-21] MEDS ORDERED: INSULIN GLARGINE [LANtus] 3 ML PEN SC SCH (20:00)
[2016-07-21] MEDS: ATORVASTATIN 80 MG TAB PO SCH (21:05)
[2016-07-21] MEDS: METOPROLOL 25 MG TAB PO SCH (21:05)
[2016-07-21] MEDS: FAMOTIDINE 20 MG TAB PO SCH (21:05)
[2016-07-21] MEDS: GABAPENTIN 300 MG CAP PO SCH (21:05)
[2016-07-21] MEDS: traZODone 100 MG TAB PO SCH (22:03)
[2016-07-22] VITALS (17 sets, daily range): BP systolic 100–132; BP diastolic 51–56; PULSE 58–75; RESP 16–23
[2016-07-22] MEDS: BUMETANIDE 1 MG TAB PO SCH ×2 (05:24→18:26)
[2016-07-22] MEDS: HYDROmorphONE 1 MG/ML SYG IV PRN ×2 (06:05→19:29)
[2016-07-22] MEDS: LEVOTHYROXINE 100 MCG TAB PO SCH (06:09)
--- NOTE | 2016-07-22 06:55 | HP ---
DATE OF ADMISSION: 07/21/2016 REASON FOR ADMISSION: Status post mechanical fall with right knee pain. CONSULTANTS: 1. Dr. Obed Burnette, Endocrinology. 2. Dr. Lokesh Lopez, Cardiology. 3. Dr. Clement Grayson, Orthopedic surgery. HISTORY OF PRESENT ILLNESS: This is a 71-year-old female with past medical history of insulin-dependent diabetes mellitus, CAD status post coronary artery stenting in 2012, hyperlipidemia, chronic kidney disease, obesity, hypothyroidism, depression, and anxiety, who was brought to the emergency room by EMS because of right knee pain that started after she had a mechanical fall on 07/20/2016. The patient verbalized that she has been feeling lightheaded. The patient was seen in the emergency room at [facility] on 11/2016 for bronchitis and she was discharged home on Zithromax and steroids. The patient verbalized that she has been taking Robitussin DM that made her drowsy. The patient denied any loss of consciousness associated with the fall. The patient denied any head injury associated with the fall. The patient denied any chest pain or palpitations. The patient was complaining of mild nonproductive cough, but no respiratory distress or wheezing. The patient denied any nausea, vomiting, abdominal pain, diarrhea, hematochezia or constipation. The patient has a chronic indwelling Garcia catheter due to incontinence. As per the patient, she was not taking her scheduled insulin for the past 2 days, nor was she taking her blood sugars. The patient also has an insulin pump and follows up with Dr. Burnette as outpatient. The patient lives in an assisted living facility. In the emergency room, the patient was found to have a glucose of 684. The patient had minimal leukocytosis. The patient underwent a right knee x-ray that showed a vertical fracture through the lateral tibial plateau with minimal distraction. The patient underwent a chest x-ray that showed new left lower lobe infiltrate/atelectasis with mild cardiomegaly. The patient was noted to have a hemoglobin A1c of 11.2. The patient was treated with analgesics and subcutaneous insulin along with IV fluids in the emergency room. PAST MEDICAL HISTORY: Diabetes mellitus (insulin dependent), CAD, dyslipidemia , chronic kidney disease, obesity, depression, anxiety, hypothyroidism, RICARDO. PAST SURGICAL HISTORY: Cholecystectomy, total abdominal hysterectomy, left total knee arthroplasty, right hip ORIF, lumbar laminectomy x3. HOME MEDICATIONS: 1. ProAir HFA 2 puffs inhaled q.4. p.r.n. dyspnea. 2. Plavix 75 mg p.o. daily. 3. Amlodipine 5 mg p.o. daily. 4. Atorvastatin 80 mg p.o. at bedtime. 5. Fenofibrate 160 mg p.o. daily. 6. Lopressor 25 mg p.o. b.i.d. 7. Niacin 1000 mg p.o. at bedtime. 8. Lovaza 2 g p.o. b.i.d. 9. Aspirin 81 mg p.o. daily. 10. Gabapentin 600 mg p.o. b.i.d. 11. Ropinirole 8 mg p.o. at bedtime. 12. Sertraline 50 mg p.o. daily. 13. Temazepam 30 mg p.o. at bedtime p.r.n. insomnia. 14. Trazodone 100 mg p.o. at bedtime. 15. Bumex 2 mg p.o. b.i.d. 16. Metolazone 5 mg p.o. on Mondays. 17. Protonix 40 mg p.o. before breakfast. 18. Humalog insulin 150 units subcutaneously daily. ALLERGIES: LOVASTATIN AND ROSUVASTATIN. SOCIAL HISTORY: The patient lives in an assisted living facility. No recent history of tobacco, alcohol or illicit drug use. REVIEW OF SYSTEMS: A 12-point review of systems was made and review of systems are negative other than what is mentioned in history of present illness. PHYSICAL EXAMINATION: VITAL SIGNS: Temperature 97.8, pulse rate 58, respiratory rate 19, blood pressure 139/60, oxygen saturation 94 % on low flow O2. GENERAL: This is a morbidly obese female lying in bed in no apparent distress. HEENT: Head normocephalic and atraumatic. Eyes: Anicteric sclerae. Conjunctivae clear. ENT: Nasal septum is midline. Oral mucosa is dry. NECK: Short and obese. Cushingoid features. RESPIRATORY: Bilaterally diminished breath sounds. No adventitious breath sounds heard. No use of accessory muscles of respiration. CARDIAC: Regular rate and rhythm. Unable to appreciate any murmurs. ABDOMEN: Obese. Soft. Nondistended. Bowel sounds positive in all 4 quadrants. GENITOURINARY: The patient has a Garcia catheter in place. EXTREMITIES: Right knee edema and tenderness. Surgical scar on the lateral aspect of the right femur. Left knee surgical scar on the anterior aspect. Bilateral 1+ pedal edema. Peripheral pulses are diminished in the lower extremities. NEUROLOGIC: The patient is awake, alert and oriented. Cranial nerves are grossly intact. LABORATORY AND DIAGNOSTIC DATA: WBC 11.6, hemoglobin 13.3, hematocrit 40.6, platelet count is 339. Sodium 136, potassium 4.4, chloride 86, carbon dioxide 33, anion gap 21, BUN 90, creatinine 3.07, glucose 684, calcium 9.7, phosphorus 6.4, magnesium 2.9, hemoglobin A1c 11.2. Venous blood gas pH 7.320, pCO2 of 58.7, CO2 of 15.8, bicarbonate 29.6 oxygen saturation 98.6, base excess 2.2. Urinalysis: Urine nitrite negative, urine leukocyte esterase 1+, urine microscopic WBC 10 to 25, urine hemoglobin 2+. IMAGIN. Chest x-ray: New left lower lobe infiltrate/atelectasis. Mild cardiomegaly. Calcified aorta consistent with atherosclerotic disease. 2. Right knee x-ray: Vertical fracture through the lateral tibial plateau. Moderate to severe medial femoral tibial degenerating joint space narrowing. IMPRESSION: This is a 71-year-old female with multiple comorbidities who had a mechanical fall sustained at her residence who came to the emergency room with right knee pain, who was found to have evidence of a right lateral tibial plateau fracture and uncontrolled diabetes who will be admitted to inpatient setting for further treatment and evaluation. ASSESSMENT AND PLAN: 1. Right lateral tibial plateau fracture. The patient will be provided with adequate pain control. The patient will be placed on bed rest. An orthopedic surgery consult was be called on this patient by the ER physician. Cardiology consult will be obtained for cardiac clearance for any orthopedic procedure. 2. Uncontrolled diabetes. The patient has type 1 diabetes. The patient was noted to have uncontrolled diabetes with no evidence of any ketosis. The patient had an insulin pump in place. This was removed by Endocrinology. The patient will be started on insulin regimen as per Endocrinology. 2. Chronic kidney disease. The patient has chronic kidney disease. The patient's BUN and creatinine will be monitored closely. Nephrotoxic drugs will be used with caution. 3. Possible underlying healthcare-associated pneumonia. The patient was recently treated for lower respiratory tract infection. The patient's current chest x-ray showing evidence of a new left lower lobe infiltrate/atelectasis. The patient will be treated for underlying health care associated pneumonia. The patient has no evidence of any sepsis. 4. Hyperlipidemia. The patient's antilipemic medications will be resumed. 5. Coronary artery disease, status post stenting in 2012. The patient had cardiac stents x2 placed at [facility] in 2012. The patient is currently on aspirin. This will be continued. Cardiology evaluation will be obtained. A 12-lead EKG will be obtained. A 2D echocardiogram will be obtained. 6. Depression. The patient's antidepressants will be resumed. 7. Anxiety. The patient's anxiolytics will be resumed. 8. Morbid obesity. Weight reduction will be advised. 9. Hypothyroidism. The patient's Synthroid will be resumed. A thyroid panel will be obtained. Plan. The patient will be admitted to inpatient setting. The patient will be started on a carbohydrate controlled low cholesterol diet. The patient will be started on DVT prophylaxis and gastrointestinal prophylaxis. The patient will remain a full code. Activities will be bed rest. The rest of the patient's management will be based on the clinical course, the results of diagnostic studies, and inputs from the consultants. Based on the patient's clinical presentation, she most probably requires at least 2 midnights' stay for further management and evaluation of her clinical presentation. The case and management of this patient was fully discussed with Dr. Ackerman. Approximately 60 minutes were spent on the history and physical of this patient. CLEMENT ACKERMAN MD, AM/RO Conf#: [id number] DID#: [id number] MTDD
[2016-07-22 07:19] LABS: BASOPHILS % 0.1 % (0.0-2.0); EOSINOPHILS # 0.1 10^3/ul (0.0-0.5); EOSINOPHILS % 0.7 % (0.0-7.0); HEMOGLOBIN 12.7 g/dl (12.0-16.0); LYMPHOCYTES # 1.1 10^3/ul (0.8-2.9); LYMPHOCYTES % 9.4 % (15.0-51.0); MEAN CORPUSCULAR HEMOGLOBIN 28.7 pg (29.0-33.0); MEAN CORPUSCULAR HGB CONC 32.6 g/dl (32.0-37.0); MEAN CORPUSCULAR VOLUME 87.8 fl (82.0-101.0); MEAN PLATELET VOLUME 7.9 fl (7.4-10.4); MONOCYTE # 0.9 10^3/ul (0.3-0.9); MONOCYTES % 7.8 % (0.0-11.0); NEUTROPHIL # 9.7 10^3/ul (1.6-7.5); PLATELET COUNT 285 10^3/UL (140-440); RED BLOOD COUNT 4.44 10^6/ul (4.20-5.40); RED CELL DISTRIBUTION WIDTH 15.7 % (11.5-14.5); UNCORRECTED WBC 11.9 10^3/ul (4.8-10.8); WHITE BLOOD COUNT 11.9 10^3/ul (4.8-10.8)
[2016-07-22 07:23] LABS: CONDITION 1; LH ANALYZER COMMENTS 1
[2016-07-22 07:24] LABS: INR 1.04; PROTIME 13.6 Sec (12.2-14.2); PT RATIO 1.1
[2016-07-22 07:29] LABS: ALBUMIN 3.8 g/dl (3.3-4.9); POTASSIUM 4.7 mmol/L (3.5-5.1)
[2016-07-22 07:31] LABS: BILIRUBIN,INDIRECT 0.1 mg/dl (0-1.1); BILIRUBIN,TOTAL 0.1 mg/dl (0.2-1.3); CREATININE 3.41 mg/dl (0.44-1.00)
[2016-07-22 07:32] LABS: ALBUMIN/GLOBULIN RATIO 1.15; CALCIUM 8.9 mg/dl (8.4-10.2); TOTAL PROTEIN 7.1 g/dl (6.1-8.1)
[2016-07-22 07:33] LABS: PARTIAL THROMBOPLASTIN TIME 21.7 Sec (25.0-35.0)
[2016-07-22 07:39] LABS: CHOL/HDL RATIO 6.3 RATIO
[2016-07-22] MEDS: ALBUTEROL/IPRATROPIUM (NEB) 3 ML AMP HHN SCH ×3 (08:56→19:28)
[2016-07-22] MEDS: INSULIN ASPART [NOVOLOG] 3 ML PEN SC SCH ×6 (09:34→20:53)
[2016-07-22] MEDS: CLOPIDOGREL 75 MG TAB PO SCH (10:00)
[2016-07-22] MEDS: SERTRALINE 50 MG TAB PO SCH (10:01)
[2016-07-22] MEDS: AMLODIPINE 5 MG TAB PO SCH (10:01)
[2016-07-22] MEDS: ASPIRIN (EC) 81 MG TAB PO SCH (10:02)
[2016-07-22] MEDS: FENOFIBRATE 145 MG TAB PO SCH (10:02)
[2016-07-22] MEDS: METOPROLOL 25 MG TAB PO SCH ×2 (10:02→20:45)
[2016-07-22] MEDS: GABAPENTIN 300 MG CAP PO SCH ×3 (10:02→20:44)
[2016-07-22] MEDS: ENOXAPARIN 30 MG/0.3 ML SYG SC SCH (10:07)
--- NOTE | 2016-07-22 11:23 | RADRPT ---
Echocardiogram Report Patient Name: CARYL LOPEZ Gender: Female Date: 1945 Study Date: 22-Jul-2016 Microstrategy Developer: Lucila Pinon [facility] Location: [id number] Ref. Physician: CLEMENT STEVENSON Quality: Technically Difficult Study Procedures: Transthoracic echocardiogram with complete 2D, M-Mode, and doppler examination. Indications: Evaluate Left Ventricular function. 2D/M Mode Doppler Measurement Value Normal Ranges Measurement Value Normal Ranges LVIDd 2D 5.3 3.5 - 5.6 cm AV Peak Harshal 1.3 m/sec LVIDs 2D 3.2 2.1 - 4.1 cm AV Peak PG 6.5 mmHg LVPWd 2D 0.9 0.6 - 1.1 cm LVOT Peak Harshal 1.0 m/sec IVSd 2D 0.9 0.6 - 1.1 cm LVOT Peak PG 4.2 mmHg AoR Diam 2D 2.3 2.0 - 3.7 cm MV E Peak Harshal 0.5 m/sec EDV 2D 135.0 cm3 MV A Peak Harshal 0.7 m/sec ESV 2D 34.3 cm3 MV E/A 0.8 LA Dimen 2D 3.0 2.3 - 4.0 cm MV Decel Time 241 msec MV Decel Brooks 2 MV E/A 0.8 Findings Left Ventricle: Overall, normal left ventricular systolic function. Not all segments visualized. Normal left ventricular cavity size. Normal left ventricular wall thickness. Ejection fraction is visually estimated at 55 %. Tissue Doppler/Mitral Doppler indices are consistent with impaired relaxation (Stage I diastolic dysfunction). Right Ventricle: Normal right ventricular size. Normal right ventricular systolic function. Left Atrium: The left atrium is normal in size. Right Atrium: The right atrium is normal in size. Mitral Valve: Mitral valve leaflets appear mildly thickened. Mild mitral annular calcification. No mitral valve regurgitation is seen. Aortic Valve: No significant aortic stenosis or insufficiency. Aortic valve not well visualized. Tricuspid Valve: Tricuspid valve not well visualized. Unable to obtain RVSP due to minimal presence of tricuspid regurgitation. No evidence of tricuspid regurgitation. Pulmonic Valve: Normal pulmonic valve appearance. Pericardium: Normal pericardium with no significant pericardial effusion. Aorta: Normal aortic root. IVC: Normal size and no respiratory collapse consistent with elevated right atrial pressure. Conclusions Overall, normal left ventricular systolic function. Not all segments visualized. Normal left ventricular cavity size. Normal left ventricular wall thickness. Ejection fraction is visually estimated at 55 %. Tissue Doppler/Mitral Doppler indices are consistent with impaired relaxation (Stage I diastolic dysfunction). Normal right ventricular size. Normal right ventricular systolic function. The left atrium is normal in size. The right atrium is normal in size. No significant valvular stenosis or regurgitation seen. Normal pericardium with no significant pericardial effusion. Electronically Signed By: Obed Chavez 22-Jul-2016 11:22:42 -0800 Patient Name: CARYL LOPEZ Study Date: 22-Jul-[id number]
--- NOTE | 2016-07-22 12:36 | CONS ---
Date/Time of Note Date/Time of Note DATE: 07/22/16 TIME: 12:32 Assessment/Plan Assessment/Plan Additional Assessment/Plan Preoperative cardiac risk stratification Lower extremity fracture CAD with history of stent in 2012 Preserved ejection fraction Hypertension Obesity -Echocardiogram with preserved ejection fraction, ECG with no significant ischemic STT wave abnormalities. She denies exertional chest pain or shortness of breath but patient does ambulate with a walker. Unable to further evaluate patient's functional status given her debilitated state. Patient is at an intermediate risk for any untoward cardiac events for orthopedic surgery at the current time. Patient states that her stent was placed in 2012 and she is currently on aspirin and Plavix. If needed, this could be held at the current time for any surgery and restart when safe by our surgeons. Would continue statin and beta-samantha if no contraindication. Consultation Date/Type/Reason Admit Date/Time Jul 21, 2016 at 14:28 Initial Consult Date 07/21/16 Type of Consultation: cv Referring Provider: CLEMENT STEVENSON [employer] 24 HR Interval Summary Free Text/Dictation Patient denies shortness of breath, chest pain or dizziness. She denies exertional chest pain or shortness of breath but she does ambulate with a walker because of imbalance. Exam/Review of Systems Vital Signs Vitals Vital Signs Date Time Temp Pulse Resp B/P Pulse Ox O2 Delivery O2 Flow Rate FiO2 07/22/16 11:45 98.3 66 23 132/56 94 07/22/16 08:57 3.0 07/22/16 08:57 Nasal Cannula 07/22/16 05:51 30 Intake and Output 07/21/16 07/21/16 07/22/16 15:00 23:00 07:00 Intake Total 500 ml 240 ml Output Total 1000 ml 800 ml Balance -500 ml -560 ml Exam No apparent distress Constitutional: alert, obese, oriented Head: normocephalic Neck: supple Respiratory: other (Coarse breath sounds bilaterally, no wheezing) Cardiovascular: other (S1-S2 heard), regular rate and rhythm Gastrointestinal: bowel sounds, non-tender, other (No guarding), soft Extremities: edema (Trace) Results Result Diagram: 07/22/16 0611 07/22/16 0611 Results 24 hrs Laboratory Tests Test 07/21/16 13:28 07/21/16 15:15 07/21/16 17:10 07/21/16 20:53 Bedside Glucose 573 *H 499 *H 309 H Potassium Level 3.8 Test 07/22/16 01:56 07/22/16 06:11 07/22/16 08:22 Bedside Glucose 228 H 284 H Activated Partial Thromboplast Time 21.7 L Alanine Aminotransferase (ALT/SGPT) 24 Albumin 3.8 Albumin/Globulin Ratio 1.15 Alkaline Phosphatase 61 Anion Gap 19 H Aspartate Amino Transf (AST/SGOT) 16 Basophils # 0.0 Basophils % 0.1 Blood Morphology Comment Blood Urea Nitrogen 87 H Calcium Level 8.9 Carbon Dioxide Level 33 H Chloride Level 92 L Cholesterol Level 252 H Cholesterol/HDL Ratio 6.3 Creatinine 3.41 H Direct Bilirubin 0.00 Eosinophils # 0.1 Eosinophils % 0.7 Globulin 3.30 H Glucose Level 264 #H HDL Cholesterol 40 Hematocrit 39.0 Hemoglobin 12.7 INR International Normalized Ratio 1.04 Indirect Bilirubin 0.1 LDL Cholesterol, Calculated Lymphocytes # 1.1 Lymphocytes % 9.4 L Mean Corpuscular Hemoglobin 28.7 L Mean Corpuscular Hemoglobin Concent 32.6 Mean Corpuscular Volume 87.8 Mean Platelet Volume 7.9 Monocytes # 0.9 Monocytes % 7.8 Neutrophils # 9.7 H Neutrophils % 82.0 H Nucleated Red Blood Cells # 0.0 Nucleated Red Blood Cells % 0.0 Platelet Count 285 Potassium Level 4.7 Prothrombin Time 13.6 Prothrombin Time Ratio 1.1 Red Blood Count 4.44 Red Cell Distribution Width 15.7 H Sodium Level 139 Thyroid Stimulating Hormone (TSH) Pending Total Bilirubin 0.1 L Total Protein 7.1 Triglycerides Level White Blood Count 11.9 H Medications Medications Current Medications Ondansetron HCl (Zofran Inj) 4 mg Q6H PRN IV NAUSEA AND/OR VOMITING Last administered on 07/21/16t 14:19; Admin Dose 4 MG; Start 07/21/16 at 13:00 Acetaminophen (Tylenol Tab) 650 mg Q6H PRN PO PAIN LEVEL 1-3 OR FEVER; Start at 13:00 Acetaminophen/ Hydrocodone Bitart ([place] (5/325)) 2 tab Q6H PRN PO SEVERE PAIN LEVEL 7-10; Start 07/21/16 at 13:00 Hydromorphone HCl (Dilaudid) 0.5 mg Q4H PRN IV SEVERE PAIN LEVEL 7-10 Last administered on 07/22/16 06:05; Admin Dose 0.5 MG; Start 07/21/16 at 13:00 Magnesium Hydroxide (Milk Of Mag) 30 ml DAILY PRN PO CONSTIPATION; Start at 13:00 Bisacodyl (Dulcolax) 5 mg DAILY PRN PO CONSTIPATION; Start 07/21/16 at 13:00 Famotidine (Pepcid) 20 mg Q24H PO Last administered on 07/21/16 21:05; Admin Dose 20 MG; Start 07/21/16 at 21:00 Enoxaparin Sodium (Lovenox) 40 mg DAILY SC Last administered on 07/22/16 10:07 ; Admin Dose 40 MG; Start 07/22/16 at 09:00 Amlodipine Besylate (Norvasc) 5 mg DAILY PO Last administered on 07/22/16 10: 01; Admin Dose 5 MG; Start 07/22/16 at 09:00 Aspirin (Halfprin) 81 mg DAILY PO Last administered on 07/22/16 10:02; Admin Dose 81 MG; Start 07/22/16 at 09:00 Atorvastatin Calcium (Lipitor) 80 mg QHS PO Last administered on 07/21/16 21: 05; Admin Dose 80 MG; Start 07/21/16 at 21:00 Benzonatate (Tessalon) 100 mg TID PRN PO COUGH; Start 07/21/16 at 13:30 Clopidogrel Bisulfate (plaVIX) 75 mg DAILY PO Last administered on 07/22/16 10 :00; Admin Dose 75 MG; Start 07/22/16 at 09:00 Gabapentin (Neurontin) 600 mg TID PO Last administered on 07/22/16 10:02; Admin Dose 600 MG; Start 07/21/16 at 21:00 Metoprolol Tartrate (Lopressor) 25 mg BID PO Last administered on 07/22/16 10: 02; Admin Dose 25 MG; Start 07/21/16 at 21:00 Sertraline HCl (Zoloft) 50 mg DAILY PO Last administered on 07/22/16 10:01; Admin Dose 50 MG; Start 07/22/16 at 09:00 Trazodone HCl (Desyrel) 100 mg QHS PO Last administered on 07/21/16 22:03; Admin Dose 100 MG; Start 07/21/16 at 21:00 Bumetanide (Bumex) 2 mg BID@06,18 PO Last administered on 07/22/16 05:24; Admin Dose 2 MG; Start 07/21/16 at 17:00 Fenofibrate 145 mg 145 mg DAILY PO Last administered on 07/22/16 10:02; Admin Dose 145 MG; Start 07/22/16 at 09:00 Levofloxacin/ Dextrose (Levaquin 750 Mg/ D5W 150 ml (Pmx)) 150 ml @ 100 mls/hr Q48H IVPB Last administered on 07/21/16 14:19; Admin Dose 100 MLS/HR; Start at 14:00 Miscellaneous Information 1 ea NOTE XX ; Start 07/21/16 at 14:30 Glucose (Glutose) 15 gm Q15M PRN PO DECREASED GLUCOSE; Start 07/21/16 at 14:30 Glucose (Glutose) 22.5 gm Q15M PRN PO DECREASED GLUCOSE; Start 07/21/16 at 14: 30 Dextrose (D50w Syringe) 25 ml Q15M PRN IV DECREASED GLUCOSE; Start 07/21/16 at 14:30 Dextrose (D50w Syringe) 50 ml Q15M PRN IV DECREASED GLUCOSE; Start 07/21/16 at 14:30 Glucagon (Glucagen) 1 mg Q15M PRN IM DECREASED GLUCOSE; Start 07/21/16 at 14:30 Glucose (Glutose) 15 gm Q15M PRN BUCCAL DECREASED GLUCOSE; Start 07/21/16 at 14 :30 Insulin Glargine (Lantus) 38 unit BID@08,20 SC ; Start 07/22/16 at 20:00 Obed Chavez DO Jul 22, 2016 12:36
--- NOTE | 2016-07-22 13:23 | CONS ---
Date/Time of Note Date/Time of Note DATE: 07/22/16 TIME: 13:19 Assessment/Plan Assessment/Plan Problems: (1) Morbid (severe) obesity due to excess calories Status: Chronic Comment: While the patient's in the hospital she will be on a calorie restricted diet. (2) Type 2 diabetes mellitus with hyperglycemia Status: Chronic Comment: Her diabetic control has been poor despite having access to the usage of an insulin pump. Her self control with calories as well as self-monitoring has been limited. We will attempt to fine tune. Qualifiers: Diabetes mellitus skilled nursing insulin use: with skilled nursing use Qualified Code : E11.65 - Type 2 diabetes mellitus with hyperglycemia, with long-term current use of insulin (3) Left medial tibial plateau fracture Status: Acute Comment: Patient will be on for surgical repair of this. As per orthopedics. (4) Hypothyroidism Status: Chronic Comment: Patient has had most recently a TSH of 80. She was taking her thyroid medications while she was also taking laxatives and iron. Hopefully this will be improving. TSH is pending at this time. Qualifiers: Hypothyroidism type: acquired Qualified Code: E03.9 - Acquired hypothyroidism (5) Chronic kidney disease, stage IV (severe) Status: Chronic Comment: She has history of chronic kidney disease although this is slightly higher than average for her. Careful observation (6) Essential (primary) hypertension Status: Chronic Comment: Adequately controlled (7) Hyperlipidemia Status: Chronic Comment: This is noted. Please note the patient has had myalgias with statins in the past Qualifiers: Hyperlipidemia type: mixed hyperlipidemia Qualified Code: E78.2 - Mixed hyperlipidemia (8) Chronic indwelling Garcia catheter Status: Chronic Comment: She is a gram-negative matt growing in the urine. She is on Levaquin we will give her a single dose of cefepime pending the final culture results. (9) Patient's noncompliance with other medical treatment and regimen Status: Chronic Comment: This continues to be a vexing problem and has been over a number of many years. Continue trying to work with her and keep the medical regimen as simple and straightforward as possible Consultation Date/Type/Reason Admit Date/Time Jul 21, 2016 at 14:28 Initial Consult Date 07/21/16 Type of Consultation: Endocrinology Reason for Consultation Diabetes mellitus type 2 on a pump; hypothyroidism; medical noncompliance Referring Provider: CLEMENT STEVENSON NP 24 HR Interval Summary Free Text/Dictation Patient has been a resident of an assisted living facility and has a medication staff. She reports that she has been getting her medications on a more regular basis. At this time she requests pain medications. Constitutional: no complaints (Denies fevers chills or sweats) Detailed Summary Respiratory: no complaints (Denies shortness of breath) Cardiovascular: no complaints (Denies chest pain palpitations) Exam/Review of Systems Vital Signs Vitals Vital Signs Date Time Temp Pulse Resp B/P Pulse Ox O2 Delivery O2 Flow Rate FiO2 07/22/16 11:45 98.3 66 23 132/56 94 07/22/16 08:57 3.0 07/22/16 08:57 Nasal Cannula 07/22/16 05:51 30 Intake and Output 07/21/16 07/21/16 07/22/16 15:00 23:00 07:00 Intake Total 500 ml 240 ml Output Total 1000 ml 800 ml Balance -500 ml -560 ml Exam Morbidly obese female lying in bed Constitutional: alert, oriented Neck: non-tender, supple Respiratory: clear to auscultation, normal air movement Cardiovascular: nl pulses, regular rate and rhythm Results Result Diagram: 07/22/16 0611 07/22/16 0611 Results 24 hrs Laboratory Tests Test 07/21/16 13:28 07/21/16 15:15 07/21/16 17:10 07/21/16 20:53 Bedside Glucose 573 *H 499 *H 309 H Potassium Level 3.8 Test 07/22/16 01:56 07/22/16 06:11 07/22/16 08:22 07/22/16 12:39 Bedside Glucose 228 H 284 H 320 H Activated Partial Thromboplast Time 21.7 L Alanine Aminotransferase (ALT/SGPT) 24 Albumin 3.8 Albumin/Globulin Ratio 1.15 Alkaline Phosphatase 61 Anion Gap 19 H Aspartate Amino Transf (AST/SGOT) 16 Basophils # 0.0 Basophils % 0.1 Blood Morphology Comment Blood Urea Nitrogen 87 H Calcium Level 8.9 Carbon Dioxide Level 33 H Chloride Level 92 L Cholesterol Level 252 H Cholesterol/HDL Ratio 6.3 Creatinine 3.41 H Direct Bilirubin 0.00 Eosinophils # 0.1 Eosinophils % 0.7 Globulin 3.30 H Glucose Level 264 #H HDL Cholesterol 40 Hematocrit 39.0 Hemoglobin 12.7 INR International Normalized Ratio 1.04 Indirect Bilirubin 0.1 LDL Cholesterol, Calculated Lymphocytes # 1.1 Lymphocytes % 9.4 L Mean Corpuscular Hemoglobin 28.7 L Mean Corpuscular Hemoglobin Concent 32.6 Mean Corpuscular Volume 87.8 Mean Platelet Volume 7.9 Monocytes # 0.9 Monocytes % 7.8 Neutrophils # 9.7 H Neutrophils % 82.0 H Nucleated Red Blood Cells # 0.0 Nucleated Red Blood Cells % 0.0 Platelet Count 285 Potassium Level 4.7 Prothrombin Time 13.6 Prothrombin Time Ratio 1.1 Red Blood Count 4.44 Red Cell Distribution Width 15.7 H Sodium Level 139 Thyroid Stimulating Hormone (TSH) Pending Total Bilirubin 0.1 L Total Protein 7.1 Triglycerides Level White Blood Count 11.9 H Medications Medications Current Medications Ondansetron HCl (Zofran Inj) 4 mg Q6H PRN IV NAUSEA AND/OR VOMITING Last administered on 07/21/16 14:19; Admin Dose 4 MG; Start 07/21/16 at 13:00 Acetaminophen (Tylenol Tab) 650 mg Q6H PRN PO PAIN LEVEL 1-3 OR FEVER; Start at 13:00 Acetaminophen/ Hydrocodone Bitart ([place] (5/325)) 2 tab Q6H PRN PO SEVERE PAIN LEVEL 7-10; Start 07/21/16 at 13:00 Hydromorphone HCl (Dilaudid) 0.5 mg Q4H PRN IV SEVERE PAIN LEVEL 7-10 Last administered on 07/22/16 06:05; Admin Dose 0.5 MG; Start 07/21/16 at 13:00 Magnesium Hydroxide (Milk Of Mag) 30 ml DAILY PRN PO CONSTIPATION; Start at 13:00 Bisacodyl (Dulcolax) 5 mg DAILY PRN PO CONSTIPATION; Start 07/21/16 at 13:00 Famotidine (Pepcid) 20 mg Q24H PO Last administered on 07/21/16 21:05; Admin Dose 20 MG; Start 07/21/16 at 21:00 Enoxaparin Sodium (Lovenox) 40 mg DAILY SC Last administered on 07/22/16 10:07 ; Admin Dose 40 MG; Start 07/22/16 at 09:00 Amlodipine Besylate (Norvasc) 5 mg DAILY PO Last administered on 07/22/16 10: 01; Admin Dose 5 MG; Start 07/22/16 at 09:00 Aspirin (Halfprin) 81 mg DAILY PO Last administered on 07/22/16 10:02; Admin Dose 81 MG; Start 07/22/16 at 09:00 Atorvastatin Calcium (Lipitor) 80 mg QHS PO Last administered on 07/21/16 21: 05; Admin Dose 80 MG; Start 07/21/16 at 21:00 Benzonatate (Tessalon) 100 mg TID PRN PO COUGH; Start 07/21/16 at 13:30 Clopidogrel Bisulfate (plaVIX) 75 mg DAILY PO Last administered on 07/22/16 10 :00; Admin Dose 75 MG; Start 07/22/16 at 09:00 Gabapentin (Neurontin) 600 mg TID PO Last administered on 07/22/16 10:02; Admin Dose 600 MG; Start 07/21/16 at 21:00 Metoprolol Tartrate (Lopressor) 25 mg BID PO Last administered on 07/22/16 10: 02; Admin Dose 25 MG; Start 07/21/16 at 21:00 Sertraline HCl (Zoloft) 50 mg DAILY PO Last administered on 07/22/16 10:01; Admin Dose 50 MG; Start 07/22/16 at 09:00 Trazodone HCl (Desyrel) 100 mg QHS PO Last administered on 07/21/16 22:03; Admin Dose 100 MG; Start 07/21/16 at 21:00 Bumetanide (Bumex) 2 mg BID@06,18 PO Last administered on 07/22/16 05:24; Admin Dose 2 MG; Start 07/21/16 at 17:00 Fenofibrate 145 mg 145 mg DAILY PO Last administered on 07/22/16 10:02; Admin Dose 145 MG; Start 07/22/16 at 09:00 Levofloxacin/ Dextrose (Levaquin 750 Mg/ D5W 150 ml (Pmx)) 150 ml @ 100 mls/hr Q48H IVPB Last administered on 07/21/16 14:19; Admin Dose 100 MLS/HR; Start at 14:00 Miscellaneous Information 1 ea NOTE XX ; Start 07/21/16 at 14:30 Glucose (Glutose) 15 gm Q15M PRN PO DECREASED GLUCOSE; Start 07/21/16 at 14:30 Glucose (Glutose) 22.5 gm Q15M PRN PO DECREASED GLUCOSE; Start 07/21/16 at 14: 30 Dextrose (D50w Syringe) 25 ml Q15M PRN IV DECREASED GLUCOSE; Start 07/21/16 at 14:30 Dextrose (D50w Syringe) 50 ml Q15M PRN IV DECREASED GLUCOSE; Start 07/21/16 at 14:30 Glucagon (Glucagen) 1 mg Q15M PRN IM DECREASED GLUCOSE; Start 07/21/16 at 14:30 Glucose (Glutose) 15 gm Q15M PRN BUCCAL DECREASED GLUCOSE; Start 07/21/16 at 14 :30 Insulin Glargine (Lantus) 38 unit BID@08,20 SC ; Start 07/22/16 at 20:00 TYRELL MAYORGA MD Jul 22, 2016 13:23
[2016-07-22] MEDS ORDERED: CEFEPIME 2GM/50 ML (PMX) 50 ML IVPB SCH (13:30)
[2016-07-22] MEDS: ACETYLCYSTEINE 600 MG CAP PO SCH ×2 (13:30→22:54)
--- NOTE | 2016-07-22 14:39 | PN ---
Date/Time of Note Date/Time of Note DATE: 07/22/16 TIME: 14:34 Assessment/Plan VTE Prophylaxis VTE Prophylaxis Intervention: LMWH Lines/Catheters IV [facility] Urinary Cath still in place: Yes Reason Cath still needed: other (indicate) Assessment/Plan Chief Complaint/Hosp Course ASSESSMENT AND PLAN: 1. Right lateral tibial plateau fracture. The patient will be placed on bed rest. An orthopedic surgery consult has been obtained. Continue pain meds . 2. Uncontrolled diabetes. The patient has type 1 diabetes. . The patient insulin regimen as per Endocrinology. 2. Chronic kidney disease. The patient has chronic kidney disease. The patient's BUN and creatinine will be monitored closely. Nephrotoxic drugs will be used with caution. 3. Possible underlying healthcare-associated pneumonia. The patient was recently treated for lower respiratory tract infection. The patient's current chest x-ray showing evidence of a new left lower lobe infiltrate/atelectasis. The patient will be treated for underlying health care associated pneumonia. The patient has no evidence of any sepsis. 4. Hyperlipidemia. The patient's antilipemic medications will be resumed. 5. Coronary artery disease, status post stenting in 2012. The patient had cardiac stents x2 placed at [facility] in 2012. The patient is currently on aspirin. This will be continued. Cardiology evaluation will be obtained. Continue aggressive medical management 6. Depression. Continue antidepressants 7. Anxiety. Continue anxiolytics 8. Morbid obesity. Weight reduction will be advised. 9. Hypothyroidism. The patient's Synthroid will be resumed. DVT prophylaxis on Lovenox GI prophylaxis is on PPI We will continue monitor patient closely for recommendation management treatment as clinical course Problems: Subjective 24 Hr Interval Summary Free Text/Dictation Patient complains of having generalized weakness Complains of having right knee pain Tolerating oral intake Exam/Review of Systems Vital Signs Vitals Vital Signs Date Time Temp Pulse Resp B/P Pulse Ox O2 Delivery O2 Flow Rate FiO2 07/22/16 13:59 65 18 96 Nasal Cannula 3.0 07/22/16 11:45 98.3 132/56 07/22/16 05:51 30 Intake and Output 07/21/16 07/21/16 07/22/16 15:00 23:00 07:00 Intake Total 500 ml 240 ml Output Total 1000 ml 800 ml Balance -500 ml -560 ml Exam General: The patient is morbidly obese, Not in acute distress. HEENT: Atraumatic, normocephalic. The pupils are equal and round . Neck: Supple with full range of motion. Chest: Normal expansion of the thorax during inspiration Lungs: Clear to auscultation bilaterally Heart: Normal S1-S2, Regular rhythm and rate. Abdomen: Soft , nontender, nondistended , bowel sounds are present. Extremities: Right knee in brace, no edema no cyanosis, pressure ulcer bilateral lower heels Neurologic: Normal mental status,The patient is awake, alert and oriented . Results Result Diagram: 07/22/16 0611 07/22/16 0611 Results 24 hrs Laboratory Tests Test 07/21/16 15:15 07/21/16 17:10 07/21/16 20:53 07/22/16 01:56 Potassium Level 3.8 Bedside Glucose 499 *H 309 H 228 H Test 07/22/16 06:11 07/22/16 08:22 07/22/16 12:39 Activated Partial Thromboplast Time 21.7 L Alanine Aminotransferase (ALT/SGPT) 24 Albumin 3.8 Albumin/Globulin Ratio 1.15 Alkaline Phosphatase 61 Anion Gap 19 H Aspartate Amino Transf (AST/SGOT) 16 Basophils # 0.0 Basophils % 0.1 Blood Morphology Comment Blood Urea Nitrogen 87 H Calcium Level 8.9 Carbon Dioxide Level 33 H Chloride Level 92 L Cholesterol Level 252 H Cholesterol/HDL Ratio 6.3 Creatinine 3.41 H Direct Bilirubin 0.00 Eosinophils # 0.1 Eosinophils % 0.7 Globulin 3.30 H Glucose Level 264 #H HDL Cholesterol 40 Hematocrit 39.0 Hemoglobin 12.7 INR International Normalized Ratio 1.04 Indirect Bilirubin 0.1 LDL Cholesterol, Calculated Lymphocytes # 1.1 Lymphocytes % 9.4 L Mean Corpuscular Hemoglobin 28.7 L Mean Corpuscular Hemoglobin Concent 32.6 Mean Corpuscular Volume 87.8 Mean Platelet Volume 7.9 Monocytes # 0.9 Monocytes % 7.8 Neutrophils # 9.7 H Neutrophils % 82.0 H Nucleated Red Blood Cells # 0.0 Nucleated Red Blood Cells % 0.0 Platelet Count 285 Potassium Level 4.7 Prothrombin Time 13.6 Prothrombin Time Ratio 1.1 Red Blood Count 4.44 Red Cell Distribution Width 15.7 H Sodium Level 139 Thyroid Stimulating Hormone (TSH) Pending Total Bilirubin 0.1 L Total Protein 7.1 Triglycerides Level White Blood Count 11.9 H Bedside Glucose 284 H 320 H Medications Medications Current Medications Ondansetron HCl (Zofran Inj) 4 mg Q6H PRN IV NAUSEA AND/OR VOMITING Last administered on 07/21/16 14:19; Admin Dose 4 MG; Start 07/21/16 at 13:00 Acetaminophen (Tylenol Tab) 650 mg Q6H PRN PO PAIN LEVEL 1-3 OR FEVER; Start at 13:00 Acetaminophen/ Hydrocodone Bitart ([place] (5/325)) 2 tab Q6H PRN PO SEVERE PAIN LEVEL 7-10; Start 07/21/16 at 13:00 Hydromorphone HCl (Dilaudid) 0.5 mg Q4H PRN IV SEVERE PAIN LEVEL 7-10 Last administered on 07/22/16 06:05; Admin Dose 0.5 MG; Start 07/21/16 at 13:00 Magnesium Hydroxide (Milk Of Mag) 30 ml DAILY PRN PO CONSTIPATION; Start at 13:00 Bisacodyl (Dulcolax) 5 mg DAILY PRN PO CONSTIPATION; Start 07/21/16 at 13:00 Famotidine (Pepcid) 20 mg Q24H PO Last administered on 07/21/16 21:05; Admin Dose 20 MG; Start 07/21/16 at 21:00 Enoxaparin Sodium (Lovenox) 40 mg DAILY SC Last administered on 07/22/16 10:07 ; Admin Dose 40 MG; Start 07/22/16 at 09:00 Amlodipine Besylate (Norvasc) 5 mg DAILY PO Last administered on 07/22/16 10: 01; Admin Dose 5 MG; Start 07/22/16 at 09:00 Aspirin (Halfprin) 81 mg DAILY PO Last administered on 07/22/16 10:02; Admin Dose 81 MG; Start 07/22/16 at 09:00 Atorvastatin Calcium (Lipitor) 80 mg QHS PO Last administered on 07/21/16 21: 05; Admin Dose 80 MG; Start 07/21/16 at 21:00 Benzonatate (Tessalon) 100 mg TID PRN PO COUGH; Start 07/21/16 at 13:30 Clopidogrel Bisulfate (plaVIX) 75 mg DAILY PO Last administered on 07/22/16 10 :00; Admin Dose 75 MG; Start 07/22/16 at 09:00 Gabapentin (Neurontin) 600 mg TID PO Last administered on 07/22/16 10:02; Admin Dose 600 MG; Start 07/21/16 at 21:00 Metoprolol Tartrate (Lopressor) 25 mg BID PO Last administered on 07/22/16 10: 02; Admin Dose 25 MG; Start 07/21/16 at 21:00 Sertraline HCl (Zoloft) 50 mg DAILY PO Last administered on 07/22/16 10:01; Admin Dose 50 MG; Start 07/22/16 at 09:00 Trazodone HCl (Desyrel) 100 mg QHS PO Last administered on 07/21/16 22:03; Admin Dose 100 MG; Start 07/21/16 at 21:00 Bumetanide (Bumex) 2 mg BID@06,18 PO Last administered on 07/22/16 05:24; Admin Dose 2 MG; Start 07/21/16 at 17:00 Fenofibrate 145 mg 145 mg DAILY PO Last administered on 07/22/16 10:02; Admin Dose 145 MG; Start 07/22/16 at 09:00 Levofloxacin/ Dextrose (Levaquin 750 Mg/ D5W 150 ml (Pmx)) 150 ml @ 100 mls/hr Q48H IVPB Last administered on 07/21/16 14:19; Admin Dose 100 MLS/HR; Start at 14:00 Miscellaneous Information 1 ea NOTE XX ; Start 07/21/16 at 14:30 Glucose (Glutose) 15 gm Q15M PRN PO DECREASED GLUCOSE; Start 07/21/16 at 14:30 Glucose (Glutose) 22.5 gm Q15M PRN PO DECREASED GLUCOSE; Start 07/21/16 at 14: 30 Dextrose (D50w Syringe) 25 ml Q15M PRN IV DECREASED GLUCOSE; Start 07/21/16 at 14:30 Dextrose (D50w Syringe) 50 ml Q15M PRN IV DECREASED GLUCOSE; Start 07/21/16 at 14:30 Glucagon (Glucagen) 1 mg Q15M PRN IM DECREASED GLUCOSE; Start 07/21/16 at 14:30 Glucose (Glutose) 15 gm Q15M PRN BUCCAL DECREASED GLUCOSE; Start 07/21/16 at 14 :30 Insulin Glargine (Lantus) 38 unit BID@08,20 SC ; Start 07/22/16 at 20:00 Fish Oil (Fish Oil) 2,000 mg BID PO ; Start 07/22/16 at 21:00 Acetylcysteine (Nac) 1,200 mg BID PO ; Start 07/22/16 at 13:30; Stop 07/25/16 at 13:29 Liothyronine Sodium (Cytomel) 5 mcg BID PO ; Start 07/22/16 at 21:00; Stop 07/27 at 20:59 FLOYD FONTANA MD Jul 22, 2016 14:39
[2016-07-22] MEDS: BENZONATATE 100 MG CAP PO PRN (15:03)
[2016-07-22 17:34] LABS: THYROID STIMULATING HORMONE 40.4 MIU/L (0.465-4.680)
--- NOTE | 2016-07-22 20:30 | CONS ---
DATE OF ADMISSION: 07/21/2016 DATE OF CONSULTATION: 07/22/2016 HISTORY OF PRESENT ILLNESS: The patient is a 71-year-old female with multiple medical problems incl uding uncontrolled diabetes mellitus, coronary artery disease status post stenting, hyperlipidemia, chronic kidney disease, obesity, depression, and anxiety who was admitted on 07/21/2016, when she wa s brought into the emergency room because of the painful swelling involving her right knee. Accordi ng to the patient, this painful swelling developed following her mechanical fall on 07/20/2016. Den ies any head injuries or other injuries at the time of the fall. She was found to have a glucose le marisel of 684. Initial evaluation in the emergency room including x-rays of the right knee revealed th e presence of fracture and she was admitted. PHYSICAL EXAMINATION: My examination revealed a 71-year-old obviously obese female who was not in a cute distress at this time. There were scars over the right hip and right thigh from previous hip s urgery and ORIF of the supracondylar fracture of the right distal femur. There was an anterior midl ine scar over the left knee from previous total knee replacement. IMAGING: X-rays of the right lower extremity revealed the presence of intramedullary device on the femoral shaft along with the open reduction and internal fixation of the supracondylar fracture of t he distal femur. There was fracture, vertically oriented, involving the lateral tibial plateau of t he right proximal tibia. The alignment of the fracture was satisfactory without any major displacem ent. There were considerable degenerative changes in the right knee joint. There was no obvious ne urovascular compromise at this time. DIAGNOSTIC IMPRESSION: 1. Vertical fracture involving the lateral tibial plateau of the right knee without much displaceme nt. 2. Degenerative osteoarthritis of the right knee. 3. Status post open reduction internal fixation of the supracondylar fracture of the right distal f emur. TREATMENT PLAN: 1. Trial of nonsurgical conservative treatment of the tibial plateau fracture by immobilizing right lower extremity in a long leg brace with a dial lock at the knee joint. This has been ordered. 2. Absolutely no weightbearing for 4 to 6 weeks. 3. After the brace is on, [facility] follo wup as an outpatient from orthopedic surgical point of view. Dictated By: OVIDIO BOOTH/RO Conf#: [id number] DID#: [id number] CC: SUSIE ACKERMAN MD;*[facility]*
[2016-07-22] MEDS: ATORVASTATIN 80 MG TAB PO SCH (20:43)
[2016-07-22] MEDS: traZODone 100 MG TAB PO SCH (20:43)
[2016-07-22] MEDS: FAMOTIDINE 20 MG TAB PO SCH (20:43)
[2016-07-22] MEDS: FISH OIL 1,000 MG CAP PO SCH (20:43)
[2016-07-22] MEDS: INSULIN GLARGINE [LANtus] 3 ML PEN SC SCH (20:51)
[2016-07-22] MEDS: LIOTHYRONINE 5 MCG TAB PO SCH (21:00)
[2016-07-23] VITALS (13 sets, daily range): BP systolic 127–167; BP diastolic 59–88; PULSE 67–88; RESP 17–22
[2016-07-23] MEDS: HYDROmorphONE 1 MG/ML SYG IV PRN ×4 (01:24→19:58)
[2016-07-23] MEDS: LEVOTHYROXINE 100 MCG TAB PO SCH (06:07)
[2016-07-23] MEDS: BUMETANIDE 1 MG TAB PO SCH ×2 (06:08→17:15)
[2016-07-23 07:58] LABS: EOSINOPHILS # 0.1 10^3/ul (0.0-0.5); EOSINOPHILS % 0.6 % (0.0-7.0); HEMATOCRIT 37.8 % (37.0-47.0); HEMOGLOBIN 12.3 g/dl (12.0-16.0); LYMPHOCYTES # 1.6 10^3/ul (0.8-2.9); LYMPHOCYTES % 8.8 % (15.0-51.0); MEAN CORPUSCULAR HEMOGLOBIN 28.6 pg (29.0-33.0); MEAN CORPUSCULAR HGB CONC 32.7 g/dl (32.0-37.0); MEAN CORPUSCULAR VOLUME 87.7 fl (82.0-101.0); MEAN PLATELET VOLUME 7.9 fl (7.4-10.4); MONOCYTE # 1.4 10^3/ul (0.3-0.9); MONOCYTES % 7.9 % (0.0-11.0); NEUTROPHIL # 14.8 10^3/ul (1.6-7.5); NEUTROPHILS % 82.7 % (39.0-77.0); PLATELET COUNT 311 10^3/UL (140-440); RED BLOOD COUNT 4.31 10^6/ul (4.20-5.40); UNCORRECTED WBC 17.9 10^3/ul (4.8-10.8); WHITE BLOOD COUNT 17.9 10^3/ul (4.8-10.8)
[2016-07-23 08:06] LABS: CONDITION 1; LH ANALYZER COMMENTS 1
[2016-07-23 08:14] LABS: POTASSIUM 4.4 mmol/L (3.5-5.1)
[2016-07-23 08:16] LABS: CREATININE 3.24 mg/dl (0.44-1.00)
[2016-07-23 08:17] LABS: CALCIUM 8.6 mg/dl (8.4-10.2); MAGNESIUM 2.7 mg/dl (1.7-2.5)
[2016-07-23] MEDS: ALBUTEROL/IPRATROPIUM (NEB) 3 ML AMP HHN SCH ×3 (08:32→20:02)
[2016-07-23] MEDS: INSULIN ASPART [NOVOLOG] 3 ML PEN SC SCH ×7 (09:27→21:41)
[2016-07-23] MEDS: INSULIN GLARGINE [LANtus] 3 ML PEN SC SCH ×2 (09:31→21:40)
[2016-07-23] MEDS: CLOPIDOGREL 75 MG TAB PO SCH (09:38)
[2016-07-23] MEDS: ACETYLCYSTEINE 600 MG CAP PO SCH ×2 (09:38→21:47)
[2016-07-23] MEDS: LIOTHYRONINE 5 MCG TAB PO SCH ×2 (09:40→21:48)
[2016-07-23] MEDS: FENOFIBRATE 145 MG TAB PO SCH (09:41)
[2016-07-23] MEDS: ASPIRIN (EC) 81 MG TAB PO SCH (09:41)
[2016-07-23] MEDS: BENZONATATE 100 MG CAP PO PRN (09:41)
[2016-07-23] MEDS: METOPROLOL 25 MG TAB PO SCH (09:41)
[2016-07-23] MEDS: FISH OIL 1,000 MG CAP PO SCH ×2 (09:41→21:47)
[2016-07-23] MEDS: GABAPENTIN 300 MG CAP PO SCH ×3 (09:42→21:47)
[2016-07-23] MEDS: AMLODIPINE 5 MG TAB PO SCH (09:42)
[2016-07-23] MEDS: SERTRALINE 50 MG TAB PO SCH (09:43)
[2016-07-23] MEDS: ENOXAPARIN 30 MG/0.3 ML SYG SC SCH (09:50)
--- NOTE | 2016-07-23 11:43 | CONS ---
Date/Time of Note Date/Time of Note DATE: 07/23/16 TIME: 11:42 Assessment/Plan Assessment/Plan Additional Assessment/Plan Preoperative cardiac risk stratification Lower extremity fracture CAD with history of stent in 2012 Preserved ejection fraction Hypertension Obesity -As per orthopedics, patient undergo conservative treatment of fracture. With increased dose of beta-samantha given elevated blood pressure. Consultation Date/Type/Reason Admit Date/Time Jul 21, 2016 at 14:28 Initial Consult Date 07/21/16 Type of Consultation: cv Referring Provider: CLEMENT STEVENSON NP 24 HR Interval Summary Free Text/Dictation Denies shortness of breath, chest pain or palpitations Exam/Review of Systems Vital Signs Vitals Vital Signs Date Time Temp Pulse Resp B/P Pulse Ox O2 Delivery O2 Flow Rate FiO2 07/23/16 08:32 94 3.0 07/23/16 08:32 88 22 Nasal Cannula 07/23/16 07:40 98.7 150/65 07/23/16 01:46 30 Intake and Output 07/22/16 07/22/16 07/23/16 15:00 23:00 07:00 Intake Total 860 ml 480 ml Output Total 700 ml 1300 ml Balance 160 ml -820 ml Exam No apparent distress Constitutional: alert, obese, oriented Head: normocephalic Neck: supple Respiratory: other (Coarse breath sounds bilaterally, no wheezing) Cardiovascular: other (S1-S2 heard), regular rate and rhythm Gastrointestinal: bowel sounds, non-tender, soft Extremities: edema Results Result Diagram: 07/23/16 0655 07/23/16 0655 Results 24 hrs Laboratory Tests Test 07/22/16 12:39 07/22/16 18:15 07/22/16 20:39 07/23/16 01:30 Bedside Glucose 320 H 373 H 283 H 235 H Test 07/23/16 06:55 07/23/16 09:22 Anion Gap 21 H Basophils # 0.0 Basophils % 0.0 Blood Morphology Comment Blood Urea Nitrogen 92 H Calcium Level 8.6 Carbon Dioxide Level 30 Chloride Level 90 L Creatinine 3.24 H Eosinophils # 0.1 Eosinophils % 0.6 Glucose Level 328 H Hematocrit 37.8 Hemoglobin 12.3 Lymphocytes # 1.6 Lymphocytes % 8.8 L Magnesium Level 2.7 H Mean Corpuscular Hemoglobin 28.6 L Mean Corpuscular Hemoglobin Concent 32.7 Mean Corpuscular Volume 87.7 Mean Platelet Volume 7.9 Monocytes # 1.4 H Monocytes % 7.9 Neutrophils # 14.8 H Neutrophils % 82.7 H Nucleated Red Blood Cells # 0.0 Nucleated Red Blood Cells % 0.0 Platelet Count 311 Potassium Level 4.4 Red Blood Count 4.31 Red Cell Distribution Width 16.0 H Sodium Level 137 White Blood Count 17.9 #H Bedside Glucose 401 *H Medications Medications Current Medications Ondansetron HCl (Zofran Inj) 4 mg Q6H PRN IV NAUSEA AND/OR VOMITING Last administered on 07/21/16 14:19; Admin Dose 4 MG; Start 07/21/16 at 13:00 Acetaminophen (Tylenol Tab) 650 mg Q6H PRN PO PAIN LEVEL 1-3 OR FEVER; Start at 13:00 Acetaminophen/ Hydrocodone Bitart ([place] (5/325)) 2 tab Q6H PRN PO SEVERE PAIN LEVEL 7-10; Start 07/21/16 at 13:00 Hydromorphone HCl (Dilaudid) 0.5 mg Q4H PRN IV SEVERE PAIN LEVEL 7-10 Last administered on 07/23/16 06:08; Admin Dose 0.5 MG; Start 07/21/16 at 13:00 Magnesium Hydroxide (Milk Of Mag) 30 ml DAILY PRN PO CONSTIPATION; Start at 13:00 Bisacodyl (Dulcolax) 5 mg DAILY PRN PO CONSTIPATION Last administered on 09:40; Admin Dose 5 MG; Start 07/21/16 at 13:00 Famotidine (Pepcid) 20 mg Q24H PO Last administered on 07/22/16 20:43; Admin Dose 20 MG; Start 07/21/16 at 21:00 Enoxaparin Sodium (Lovenox) 40 mg DAILY SC Last administered on 07/23/16 09:50 ; Admin Dose 40 MG; Start 07/22/16 at 09:00 Amlodipine Besylate (Norvasc) 5 mg DAILY PO Last administered on 07/23/16 09: 42; Admin Dose 5 MG; Start 07/22/16 at 09:00 Aspirin (Halfprin) 81 mg DAILY PO Last administered on 07/23/16 09:41; Admin Dose 81 MG; Start 07/22/16 at 09:00 Atorvastatin Calcium (Lipitor) 80 mg QHS PO Last administered on 07/22/16 20: 43; Admin Dose 80 MG; Start 07/21/16 at 21:00 Benzonatate (Tessalon) 100 mg TID PRN PO COUGH Last administered on 07/23/16 09:41; Admin Dose 100 MG; Start 07/21/16 at 13:30 Clopidogrel Bisulfate (plaVIX) 75 mg DAILY PO Last administered on 07/23/16 09 :38; Admin Dose 75 MG; Start 07/22/16 at 09:00 Gabapentin (Neurontin) 600 mg TID PO Last administered on 07/23/16 09:42; Admin Dose 600 MG; Start 07/21/16 at 21:00 Metoprolol Tartrate (Lopressor) 25 mg BID PO Last administered on 07/23/16 09: 41; Admin Dose 25 MG; Start 07/21/16 at 21:00 Sertraline HCl (Zoloft) 50 mg DAILY PO Last administered on 07/23/16 09:43; Admin Dose 50 MG; Start 07/22/16 at 09:00 Trazodone HCl (Desyrel) 100 mg QHS PO Last administered on 07/22/16 20:43; Admin Dose 100 MG; Start 07/21/16 at 21:00 Bumetanide (Bumex) 2 mg BID@06,18 PO Last administered on 07/23/16 06:08; Admin Dose 2 MG; Start 07/21/16 at 17:00 Fenofibrate 145 mg 145 mg DAILY PO Last administered on 07/23/16 09:41; Admin Dose 145 MG; Start 07/22/16 at 09:00 Levofloxacin/ Dextrose (Levaquin 750 Mg/ D5W 150 ml (Pmx)) 150 ml @ 100 mls/hr Q48H IVPB Last administered on 07/21/16 14:19; Admin Dose 100 MLS/HR; Start at 14:00 Miscellaneous Information 1 ea NOTE XX ; Start 07/21/16 at 14:30 Glucose (Glutose) 15 gm Q15M PRN PO DECREASED GLUCOSE; Start 07/21/16 at 14:30 Glucose (Glutose) 22.5 gm Q15M PRN PO DECREASED GLUCOSE; Start 07/21/16 at 14: 30 Dextrose (D50w Syringe) 25 ml Q15M PRN IV DECREASED GLUCOSE; Start 07/21/16 at 14:30 Dextrose (D50w Syringe) 50 ml Q15M PRN IV DECREASED GLUCOSE; Start 07/21/16 at 14:30 Glucagon (Glucagen) 1 mg Q15M PRN IM DECREASED GLUCOSE; Start 07/21/16 at 14:30 Glucose (Glutose) 15 gm Q15M PRN BUCCAL DECREASED GLUCOSE; Start 07/21/16 at 14 :30 Insulin Glargine (Lantus) 38 unit BID@08,20 SC Last administered on 07/23/16 09:31; Admin Dose 38 UNIT; Start 07/22/16 at 20:00 Fish Oil (Fish Oil) 2,000 mg BID PO Last administered on 07/23/16 09:41; Admin Dose 2,000 MG; Start 07/22/16 at 21:00 Acetylcysteine (Nac) 1,200 mg BID PO Last administered on 07/23/16 09:38; Admin Dose 1,200 MG; Start 07/22/16 at 13:30; Stop 07/25/16 at 13:29 Liothyronine Sodium (Cytomel) 5 mcg BID PO Last administered on 07/23/16 09:40 ; Admin Dose 5 MCG; Start 07/22/16 at 21:00; Stop 07/27/16 at 20:59 Obed Chavez DO Jul 23, 2016 11:43
[2016-07-23] MEDS: LEVOFLOXACIN 750MG/D5W (PMX) 150 ML IVPB SCH (13:33)
[2016-07-23] MEDS ORDERED: INSULIN GLARGINE [LANtus] 3 ML PEN SC ONE (14:30)
--- NOTE | 2016-07-23 14:37 | RADRPT ---
Vent Rate: 67 bpm RR Interval: 0 msec [place] Interval: 168 msec QRS Duration: 100 msec QT Interval: 406 msec QTC Interval: 429 msec P-R-T [place]: 52 - 17 - 72 degrees Normal sinus rhythm Possible Anterior infarct , age undetermined Abnormal ECG Electronically Signed By: Obed Chavez [id number]
--- NOTE | 2016-07-23 15:49 | PDOCDIS ---
Discharge Instructions CONDITION Patient Condition: Stable HOME CARE INSTRUCTIONS: Special Diet: CARB CONTROLLED DIET/ Renal diet ACTIVITY: Activity Restrictions Comment: Non weight bearing on right lower ext x 6 weeks FLOYD FONTANA MD Jul 23, 2016 15:49
--- NOTE | 2016-07-23 18:08 | PN ---
DATE: 07/23/2016 Waiting for long leg brace with a dial lock at the knee joint. It is not available yet, possibly be cause of some administrative reasons. The patient could be discharged as soon as the brace is on wi th the specific instructions not to put any weight on the right lower extremity. Dictated By: OVIDIO BOOTH/RO Conf#: [id number] DID#: [id number]
--- NOTE | 2016-07-23 18:26 | CONS ---
Date/Time of Note Date/Time of Note DATE: 07/23/16 TIME: 18:24 Assessment/Plan Assessment/Plan Problems: (1) Patient's noncompliance with other medical treatment and regimen Status: Chronic Comment: Patient's been very counseled about the need to be consistent with her medications. My index of suspicion is that were not chromic progress here and this can be a bumpy ride (2) Essential (primary) hypertension Status: Chronic Comment: Medications adjusted as per cardiology (3) Chronic kidney disease, stage IV (severe) Status: Chronic Comment: Noted (4) Type 2 diabetes mellitus with hyperglycemia Status: Chronic Comment: With adjustment of dosages of insulin if sugars are now coming down. Please note she will need to be on the simplest possible regimen at discharge Qualifiers: Diabetes mellitus mcc insulin use: with mcc use Qualified Code : E11.65 - Type 2 diabetes mellitus with hyperglycemia, with long-term current use of insulin (5) Hypothyroidism Status: Chronic Comment: This is improving with her actually getting the medications Qualifiers: Hypothyroidism type: acquired Qualified Code: E03.9 - Acquired hypothyroidism Consultation Date/Type/Reason Admit Date/Time Jul 21, 2016 at 14:28 Initial Consult Date 07/21/16 Type of Consultation: Endocrinology Reason for Consultation Hypothyroidism; diabetes mellitus type 2; medical noncompliance Referring Provider: CLEMENT STEVENSON NP 24 HR Interval Summary Free Text/Dictation Patient complains of knee pain otherwise no changes Exam/Review of Systems Vital Signs Vitals Vital Signs Date Time Temp Pulse Resp B/P Pulse Ox O2 Delivery O2 Flow Rate FiO2 07/23/16 16:26 67 07/23/16 15:38 98.0 18 137/79 97 07/23/16 13:45 Nasal Cannula 3.0 07/23/16 01:46 30 Intake and Output 07/22/16 07/22/16 07/23/16 15:00 23:00 07:00 Intake Total 860 ml 480 ml Output Total 700 ml 1300 ml Balance 160 ml -820 ml Exam Constitutional: alert, oriented Respiratory: clear to auscultation, normal air movement Cardiovascular: nl pulses, regular rate and rhythm Results Result Diagram: 07/23/16 0655 07/23/16 0655 Results 24 hrs Laboratory Tests Test 07/22/16 20:39 07/23/16 01:30 07/23/16 06:55 07/23/16 09:22 Bedside Glucose 283 H 235 H 401 *H Anion Gap 21 H Basophils # 0.0 Basophils % 0.0 Blood Morphology Comment Blood Urea Nitrogen 92 H Calcium Level 8.6 Carbon Dioxide Level 30 Chloride Level 90 L Creatinine 3.24 H Eosinophils # 0.1 Eosinophils % 0.6 Glucose Level 328 H Hematocrit 37.8 Hemoglobin 12.3 Lymphocytes # 1.6 Lymphocytes % 8.8 L Magnesium Level 2.7 H Mean Corpuscular Hemoglobin 28.6 L Mean Corpuscular Hemoglobin Concent 32.7 Mean Corpuscular Volume 87.7 Mean Platelet Volume 7.9 Monocytes # 1.4 H Monocytes % 7.9 Neutrophils # 14.8 H Neutrophils % 82.7 H Nucleated Red Blood Cells # 0.0 Nucleated Red Blood Cells % 0.0 Platelet Count 311 Potassium Level 4.4 Red Blood Count 4.31 Red Cell Distribution Width 16.0 H Sodium Level 137 White Blood Count 17.9 #H Test 07/23/16 12:14 07/23/16 17:28 Bedside Glucose 323 H 210 Medications Medications Current Medications Ondansetron HCl (Zofran Inj) 4 mg Q6H PRN IV NAUSEA AND/OR VOMITING Last administered on 07/21/16 14:19; Admin Dose 4 MG; Start 07/21/16 at 13:00 Acetaminophen (Tylenol Tab) 650 mg Q6H PRN PO PAIN LEVEL 1-3 OR FEVER; Start at 13:00 Acetaminophen/ Hydrocodone Bitart ([place] (5/325)) 2 tab Q6H PRN PO SEVERE PAIN LEVEL 7-10; Start 07/21/16 at 13:00 Hydromorphone HCl (Dilaudid) 0.5 mg Q4H PRN IV SEVERE PAIN LEVEL 7-10 Last administered on 07/23/16 12:30; Admin Dose 0.5 MG; Start 07/21/16 at 13:00 Magnesium Hydroxide (Milk Of Mag) 30 ml DAILY PRN PO CONSTIPATION; Start at 13:00 Bisacodyl (Dulcolax) 5 mg DAILY PRN PO CONSTIPATION Last administered on 09:40; Admin Dose 5 MG; Start 07/21/16 at 13:00 Famotidine (Pepcid) 20 mg Q24H PO Last administered on 07/22/16 20:43; Admin Dose 20 MG; Start 07/21/16 at 21:00 Enoxaparin Sodium (Lovenox) 40 mg DAILY SC Last administered on 07/23/16 09:50 ; Admin Dose 40 MG; Start 07/22/16 at 09:00 Amlodipine Besylate (Norvasc) 5 mg DAILY PO Last administered on 07/23/16 09: 42; Admin Dose 5 MG; Start 07/22/16 at 09:00 Aspirin (Halfprin) 81 mg DAILY PO Last administered on 07/23/16 09:41; Admin Dose 81 MG; Start 07/22/16 at 09:00 Atorvastatin Calcium (Lipitor) 80 mg QHS PO Last administered on 07/22/16 20: 43; Admin Dose 80 MG; Start 07/21/16 at 21:00 Benzonatate (Tessalon) 100 mg TID PRN PO COUGH Last administered on 07/23/16 09:41; Admin Dose 100 MG; Start 07/21/16 at 13:30 Clopidogrel Bisulfate (plaVIX) 75 mg DAILY PO Last administered on 07/23/16 09 :38; Admin Dose 75 MG; Start 07/22/16 at 09:00 Gabapentin (Neurontin) 600 mg TID PO Last administered on 07/23/16 12:30; Admin Dose 600 MG; Start 07/21/16 at 21:00 Sertraline HCl (Zoloft) 50 mg DAILY PO Last administered on 07/23/16 09:43; Admin Dose 50 MG; Start 07/22/16 at 09:00 Trazodone HCl (Desyrel) 100 mg QHS PO Last administered on 07/22/16 20:43; Admin Dose 100 MG; Start 07/21/16 at 21:00 Bumetanide (Bumex) 2 mg BID@06,18 PO Last administered on 07/23/16 17:15; Admin Dose 2 MG; Start 07/21/16 at 17:00 Fenofibrate 145 mg 145 mg DAILY PO Last administered on 07/23/16 09:41; Admin Dose 145 MG; Start 07/22/16 at 09:00 Levofloxacin/ Dextrose (Levaquin 750 Mg/ D5W 150 ml (Pmx)) 150 ml @ 100 mls/hr Q48H IVPB Last administered on 07/23/16 13:33; Admin Dose 100 MLS/HR; Start at 14:00 Miscellaneous Information 1 ea NOTE XX ; Start 07/21/16 at 14:30 Glucose (Glutose) 15 gm Q15M PRN PO DECREASED GLUCOSE; Start 07/21/16 at 14:30 Glucose (Glutose) 22.5 gm Q15M PRN PO DECREASED GLUCOSE; Start 07/21/16 at 14: 30 Dextrose (D50w Syringe) 25 ml Q15M PRN IV DECREASED GLUCOSE; Start 07/21/16 at 14:30 Dextrose (D50w Syringe) 50 ml Q15M PRN IV DECREASED GLUCOSE; Start 07/21/16 at 14:30 Glucagon (Glucagen) 1 mg Q15M PRN IM DECREASED GLUCOSE; Start 07/21/16 at 14:30 Glucose (Glutose) 15 gm Q15M PRN BUCCAL DECREASED GLUCOSE; Start 07/21/16 at 14 :30 Fish Oil (Fish Oil) 2,000 mg BID PO Last administered on 07/23/16 09:41; Admin Dose 2,000 MG; Start 07/22/16 at 21:00 Acetylcysteine (Nac) 1,200 mg BID PO Last administered on 07/23/16 09:38; Admin Dose 1,200 MG; Start 07/22/16 at 13:30; Stop 07/25/16 at 13:29 Liothyronine Sodium (Cytomel) 5 mcg BID PO Last administered on 07/23/16 09:40 ; Admin Dose 5 MCG; Start 07/22/16 at 21:00; Stop 07/27/16 at 20:59 Metoprolol Tartrate (Lopressor) 50 mg BID PO ; Start 07/23/16 at 21:00 Insulin Glargine (Lantus) 45 unit BID@08,20 SC ; Start 07/23/16 at 20:00 TYRELL MAYORGA MD Jul 23, 2016 18:26
[2016-07-23] MEDS: ATORVASTATIN 80 MG TAB PO SCH (21:47)
[2016-07-23] MEDS: traZODone 100 MG TAB PO SCH (21:47)
[2016-07-23] MEDS: METOPROLOL 50 MG TAB PO SCH (21:50)
[2016-07-23] MEDS: FAMOTIDINE 20 MG TAB PO SCH (21:51)
[2016-07-23] MEDS: HYDROCODONE/APAP (5/325) TAB PO PRN (22:02)
[2016-07-24] VITALS (16 sets, daily range): BP systolic 104–147; BP diastolic 53–74; PULSE 58–75; RESP 16–18
[2016-07-24] MEDS: HYDROmorphONE 1 MG/ML SYG IV PRN ×4 (02:36→20:10)
[2016-07-24] MEDS: BUMETANIDE 1 MG TAB PO SCH ×2 (05:48→17:13)
[2016-07-24] MEDS: LEVOTHYROXINE 100 MCG TAB PO SCH (06:00)
--- NOTE | 2016-07-24 07:04 | DS ---
DATE OF ADMISSION: 07/21/2016 DATE OF DISCHARGE: 07/23/2016 CONSULTANTS: 1. Cardiology. 2. Orthopedic surgeon. 3. News Copy Editor. DISCHARGE DIAGNOSIS: 1. Right lateral tibial plateau fracture. Patient was seen and evaluated by orthopedic surgeon. N o surgical intervention. The patient has been placed on a brace. Nonweightbearing x6 weeks. 2. Diabetes mellitus, uncontrolled. Endocrinology was consulted. Continue premeal insulin And [place] tus, low carbohydrate diet. 3. Chronic renal insufficiency. Follow with nephrology as outpatient. 4. Healthcare-associated pneumonia, on Levaquin. 5. Dyslipidemia. Continue statin. 6. Coronary artery disease. Continue aspirin, Plavix, beta samantha, and statin. 7. Depression. Continue antidepressants. 8. Anxiety. Continue anxiety medication. 9. Morbid obesity. Weight reduction has been advised. 10. Hypothyroidism. Continue Synthroid. 13. Sleep apnea. Continue breathing treatment. MEDICATIONS: 1. Tylenol. 2. . 3. DuoNeb. 4. Norvasc. 5. Aspirin. 6. Diclofenac gel. 7. Lipitor. 8. Dulcolax. 9. Bumex. 10. Plavix. 11. Lovenox. 12. Pepcid 13. Tricor. 14. Fish oil. 15. Niacin. 16. Gabapentin. 17. Tramadol. 18. [place]. 19. Insulin sliding scale with NovoLog. 20. Insulin aspart 40 units with meals. 21. Lantus 50 units b.i.d. 22. Levaquin 750 mg. 23. Levothyroxine. 24. Cytomel. 25. Colace. 26. Metoprolol. 27. Sertraline. 28. Trazodone. 29. Ropinirole. FOLLOWUP: 1. Follow with Dr. Ej Brush, [place], in 3 weeks. 2. Follow with pulmonology as outpatient. 3. Follow with nephrology as outpatient. DISPOSITION: To [facility] facility. CONDITION: Stable. HOSPITAL COURSE: This is a 71-year-old female with past medical history of diabetes mellitus, coron alonso artery disease status post PCI in 2012, dyslipidemia, chronic kidney disease, obesity, hypothyro idism, depression, anxiety, debility, who was brought into the emergency room because of the right k nee pain started after she had a mechanical fall on 07/20/2016. Patient stated that she felt lighth eaded, and she had a mechanical fall. The x-ray of the knee demonstrated vertical fracture througho ut the lateral tibial plateau with minimal distraction, moderate medial femoral tibial degenerative joint space narrowing. Orthopedic surgeon was consulted. The patient was also seen and evaluated b y gas prover secondary to her history of diabetes mellitus, which has been uncontrolled. The linette ent was also seen and evaluated by gas prover secondary to her history of coronary artery disease. The patient's insulin and diabetic medication was adjusted by the plate keeper and was continue d on aggressive medical management and was seen and evaluated by orthopedic surgeon, which he recomm ended no surgical intervention, and patient was placed on brace and nonweightbearing x4 to 6 weeks o n her right lower extremity. Patient, regarding diabetes mellitus, was placed on Lantus, insulin sl iding scale, and aspart premeal for diabetes. For her hypertension, her blood pressure is well cont rolled on Norvasc and metoprolol. For her history of coronary artery disease, was continued on aspi rin, Plavix, statin, and beta samantha. At this time, the patient has been placed on antibiotics sec ondary to questionable community-acquired pneumonia, and has been on Levaquin. Her renal panel has been stable. At this time, patient is medically stable to be discharged to fdc facility , nonweightbearing x4 to 6 weeks on her right lower extremity. CONDITION AT TIME OF DISCHARGE: Stable. LABS: WBC 17.9, hemoglobin 12.3, hematocrit 37.8, platelets 311. Sodium 137, potassium 4.4, chlori de 90, bicarb 30, BUN 8, creatinine 3.24, glucose of 328, calcium 8.6, magnesium 2.7. Dictated By: FLOYD FONTANA MD PN/NTS Conf#: [id number] DID#: [id number] CC: [facility];*End*
[2016-07-24 07:27] LABS: BASOPHILS % 0.1 % (0.0-2.0); EOSINOPHILS # 0.1 10^3/ul (0.0-0.5); EOSINOPHILS % 0.7 % (0.0-7.0); HEMATOCRIT 35.9 % (37.0-47.0); HEMOGLOBIN 11.8 g/dl (12.0-16.0); LYMPHOCYTES # 1.1 10^3/ul (0.8-2.9); LYMPHOCYTES % 8.6 % (15.0-51.0); MEAN CORPUSCULAR HEMOGLOBIN 28.8 pg (29.0-33.0); MEAN CORPUSCULAR VOLUME 87.3 fl (82.0-101.0); MEAN PLATELET VOLUME 7.8 fl (7.4-10.4); MONOCYTES % 8.6 % (0.0-11.0); PLATELET COUNT 288 10^3/UL (140-440); RED BLOOD COUNT 4.11 10^6/ul (4.20-5.40); RED CELL DISTRIBUTION WIDTH 15.8 % (11.5-14.5); UNCORRECTED WBC 12.1 10^3/ul (4.8-10.8); WHITE BLOOD COUNT 12.1 10^3/ul (4.8-10.8)
[2016-07-24 07:32] LABS: CONDITION 1; LH ANALYZER COMMENTS 1
[2016-07-24 07:43] LABS: POTASSIUM 4.1 mmol/L (3.5-5.1)
[2016-07-24 07:45] LABS: CREATININE 2.83 mg/dl (0.44-1.00)
[2016-07-24 07:46] LABS: CALCIUM 8.8 mg/dl (8.4-10.2)
[2016-07-24] MEDS: INSULIN ASPART [NOVOLOG] 3 ML PEN SC SCH ×7 (07:58→20:21)
[2016-07-24] MEDS: INSULIN GLARGINE [LANtus] 3 ML PEN SC SCH ×2 (07:59→20:20)
[2016-07-24] MEDS: ALBUTEROL/IPRATROPIUM (NEB) 3 ML AMP HHN SCH ×3 (08:25→21:21)
[2016-07-24] MEDS: LIOTHYRONINE 5 MCG TAB PO SCH ×2 (08:34→20:22)
[2016-07-24] MEDS: FISH OIL 1,000 MG CAP PO SCH ×2 (08:34→20:22)
[2016-07-24] MEDS: FENOFIBRATE 145 MG TAB PO SCH (08:35)
[2016-07-24] MEDS: ACETYLCYSTEINE 600 MG CAP PO SCH ×2 (08:35→20:21)
[2016-07-24] MEDS: CLOPIDOGREL 75 MG TAB PO SCH (08:35)
[2016-07-24] MEDS: ASPIRIN (EC) 81 MG TAB PO SCH (08:35)
[2016-07-24] MEDS: GABAPENTIN 300 MG CAP PO SCH ×3 (08:35→20:21)
[2016-07-24] MEDS: METOPROLOL 50 MG TAB PO SCH ×2 (08:35→20:24)
[2016-07-24] MEDS: SERTRALINE 50 MG TAB PO SCH (08:36)
[2016-07-24] MEDS: AMLODIPINE 5 MG TAB PO SCH (08:36)
[2016-07-24] MEDS: ENOXAPARIN 30 MG/0.3 ML SYG SC SCH (08:37)
--- NOTE | 2016-07-24 11:18 | PN ---
Date/Time of Note Date/Time of Note DATE: 07/24/16 TIME: 11:15 Assessment/Plan VTE Prophylaxis VTE Prophylaxis Intervention: SCD's Lines/Catheters IV Catheter Type (from Nrsg): Saline Lock Urinary Cath still in place: Yes Reason Cath still needed: other (indicate) (d/c mahoney ) Assessment/Plan Assessment/Plan 1. Right lateral tibial plateau fracture. Patient was seen and evaluated by orthopedic surgeon. No surgical intervention. The patient has been placed on a brace. Nonweightbearing x6 weeks. 2. Diabetes mellitus, uncontrolled. Endocrinology was consulted. Continue premeal insulin And Lantus, low carbohydrate diet. 3. Chronic renal insufficiency. Follow with nephrology as outpatient. 4. Healthcare-associated pneumonia, on Levaquin. 5. Dyslipidemia. Continue statin. 6. Coronary artery disease. Continue aspirin, Plavix, beta samantha, and statin. 7. Depression. Continue antidepressants. 8. Anxiety. Continue anxiety medication. 9. Morbid obesity. Weight reduction has been advised. 10. Hypothyroidism. Continue Synthroid. 13. Sleep apnea. Continue breathing treatment. Awaiting brace and SNF placement Continue current care Bp stable total Time spent is more than 45 minutes Subjective 24 Hr Interval Summary Free Text/Dictation pain controlled, waiting for brace and placement in SNF Exam/Review of Systems Vital Signs Vitals Vital Signs Date Time Temp Pulse Resp B/P Pulse Ox O2 Delivery O2 Flow Rate FiO2 07/24/16 08:25 3.0 07/24/16 08:25 74 22 96 Nasal Cannula 07/24/16 08:15 97.9 132/60 07/24/16 03:10 30 Intake and Output 07/23/16 07/23/16 07/24/16 15:00 23:00 07:00 Intake Total 500 ml Output Total 1300 ml Balance -800 ml Exam No apparent distress Constitutional: alert, obese, oriented Head: normocephalic Neck: supple Respiratory: other (Coarse breath sounds bilaterally, no wheezing) Cardiovascular: other (S1-S2 heard), regular rate and rhythm Gastrointestinal: bowel sounds, non-tender, soft Extremities: edema Results Result Diagram: 07/24/16 0641 07/24/16 0641 Results 24 hrs Laboratory Tests Test 07/23/16 12:14 07/23/16 17:28 07/23/16 21:36 07/24/16 01:55 Bedside Glucose 323 H 210 205 207 Test 07/24/16 06:41 07/24/16 07:32 Anion Gap 17 H Basophils # 0.0 Basophils % 0.1 Blood Morphology Comment Blood Urea Nitrogen 87 H Calcium Level 8.8 Carbon Dioxide Level 33 H Chloride Level 90 L Creatinine 2.83 H Eosinophils # 0.1 Eosinophils % 0.7 Glucose Level 260 H Hematocrit 35.9 L Hemoglobin 11.8 L Lymphocytes # 1.1 Lymphocytes % 8.6 L Mean Corpuscular Hemoglobin 28.8 L Mean Corpuscular Hemoglobin Concent 33.0 Mean Corpuscular Volume 87.3 Mean Platelet Volume 7.8 Monocytes # 1.0 H Monocytes % 8.6 Neutrophils # 10.0 H Neutrophils % 82.0 H Nucleated Red Blood Cells # 0.0 Nucleated Red Blood Cells % 0.0 Platelet Count 288 Potassium Level 4.1 Red Blood Count 4.11 L Red Cell Distribution Width 15.8 H Sodium Level 136 White Blood Count 12.1 #H Bedside Glucose 297 H Medications Medications Current Medications Ondansetron HCl (Zofran Inj) 4 mg Q6H PRN IV NAUSEA AND/OR VOMITING Last administered on 07/21/16 14:19; Admin Dose 4 MG; Start 07/21/16 at 13:00 Acetaminophen (Tylenol Tab) 650 mg Q6H PRN PO PAIN LEVEL 1-3 OR FEVER; Start at 13:00 Acetaminophen/ Hydrocodone Bitart ([place] (5/325)) 2 tab Q6H PRN PO SEVERE PAIN LEVEL 7-10 Last administered on 07/23/16 22:02; Admin Dose 2 TAB; Start at 13:00 Hydromorphone HCl (Dilaudid) 0.5 mg Q4H PRN IV SEVERE PAIN LEVEL 7-10 Last administered on 07/24/16 08:41; Admin Dose 0.5 MG; Start 07/21/16 at 13:00 Magnesium Hydroxide (Milk Of Mag) 30 ml DAILY PRN PO CONSTIPATION; Start at 13:00 Bisacodyl (Dulcolax) 5 mg DAILY PRN PO CONSTIPATION Last administered on 09:40; Admin Dose 5 MG; Start 07/21/16 at 13:00 Famotidine (Pepcid) 20 mg Q24H PO Last administered on 07/23/16 21:51; Admin Dose 20 MG; Start 07/21/16 at 21:00 Enoxaparin Sodium (Lovenox) 40 mg DAILY SC Last administered on 07/24/16 08:37 ; Admin Dose 40 MG; Start 07/22/16 at 09:00 Amlodipine Besylate (Norvasc) 5 mg DAILY PO Last administered on 07/24/16 08: 36; Admin Dose 5 MG; Start 07/22/16 at 09:00 Aspirin (Halfprin) 81 mg DAILY PO Last administered on 07/24/16 08:35; Admin Dose 81 MG; Start 07/22/16 at 09:00 Atorvastatin Calcium (Lipitor) 80 mg QHS PO Last administered on 07/23/16 21: 47; Admin Dose 80 MG; Start 07/21/16 at 21:00 Benzonatate (Tessalon) 100 mg TID PRN PO COUGH Last administered on 07/23/16 09:41; Admin Dose 100 MG; Start 07/21/16 at 13:30 Clopidogrel Bisulfate (plaVIX) 75 mg DAILY PO Last administered on 07/24/16 08 :35; Admin Dose 75 MG; Start 07/22/16 at 09:00 Gabapentin (Neurontin) 600 mg TID PO Last administered on 07/24/16 08:35; Admin Dose 600 MG; Start 07/21/16 at 21:00 Sertraline HCl (Zoloft) 50 mg DAILY PO Last administered on 07/24/16 08:36; Admin Dose 50 MG; Start 07/22/16 at 09:00 Trazodone HCl (Desyrel) 100 mg QHS PO Last administered on 07/23/16 21:47; Admin Dose 100 MG; Start 07/21/16 at 21:00 Bumetanide (Bumex) 2 mg BID@06,18 PO Last administered on 07/24/16 05:48; Admin Dose 2 MG; Start 07/21/16 at 17:00 Fenofibrate 145 mg 145 mg DAILY PO Last administered on 07/24/16 08:35; Admin Dose 145 MG; Start 07/22/16 at 09:00 Levofloxacin/ Dextrose (Levaquin 750 Mg/ D5W 150 ml (Pmx)) 150 ml @ 100 mls/hr Q48H IVPB Last administered on 07/23/16 13:33; Admin Dose 100 MLS/HR; Start at 14:00 Miscellaneous Information 1 ea NOTE XX ; Start 07/21/16 at 14:30 Glucose (Glutose) 15 gm Q15M PRN PO DECREASED GLUCOSE; Start 07/21/16 at 14:30 Glucose (Glutose) 22.5 gm Q15M PRN PO DECREASED GLUCOSE; Start 07/21/16 at 14: 30 Dextrose (D50w Syringe) 25 ml Q15M PRN IV DECREASED GLUCOSE; Start 07/21/16 at 14:30 Dextrose (D50w Syringe) 50 ml Q15M PRN IV DECREASED GLUCOSE; Start 07/21/16 at 14:30 Glucagon (Glucagen) 1 mg Q15M PRN IM DECREASED GLUCOSE; Start 07/21/16 at 14:30 Glucose (Glutose) 15 gm Q15M PRN BUCCAL DECREASED GLUCOSE; Start 07/21/16 at 14 :30 Fish Oil (Fish Oil) 2,000 mg BID PO Last administered on 07/24/16 08:34; Admin Dose 2,000 MG; Start 07/22/16 at 21:00 Acetylcysteine (Nac) 1,200 mg BID PO Last administered on 07/24/16 08:35; Admin Dose 1,200 MG; Start 07/22/16 at 13:30; Stop 07/25/16 at 13:29 Liothyronine Sodium (Cytomel) 5 mcg BID PO Last administered on 07/24/16 08:34 ; Admin Dose 5 MCG; Start 07/22/16 at 21:00; Stop 07/27/16 at 20:59 Metoprolol Tartrate (Lopressor) 50 mg BID PO Last administered on 07/24/16 08: 35; Admin Dose 50 MG; Start 07/23/16 at 21:00 Insulin Glargine (Lantus) 45 unit BID@08,20 SC Last administered on 07/24/16 07:59; Admin Dose 45 UNIT; Start 07/23/16 at 20:00 DEANDRA VARELA MD Jul 24, 2016 11:18
--- NOTE | 2016-07-24 13:42 | CONS ---
Date/Time of Note Date/Time of Note DATE: 07/24/16 TIME: 13:41 Assessment/Plan Assessment/Plan Additional Assessment/Plan Lower extremity fracture CAD with history of stent in 2012 Preserved ejection fraction Hypertension Obesity -Heart rate improved, given history of CAD, would continue beta-samantha and decreased dose of Norvasc. Continue antiplatelet therapy if no contraindication. Consultation Date/Type/Reason Admit Date/Time Jul 21, 2016 at 14:28 Initial Consult Date 07/21/16 Type of Consultation: cv Referring Provider: CLEMENT STEVENSON KNOT TIER 24 HR Interval Summary Free Text/Dictation Patient denies shortness of breath or chest pain Exam/Review of Systems Vital Signs Vitals Vital Signs Date Time Temp Pulse Resp B/P Pulse Ox O2 Delivery O2 Flow Rate FiO2 07/24/16 12:15 69 07/24/16 12:12 97.9 17 106/54 96 07/24/16 08:25 3.0 07/24/16 08:25 Nasal Cannula 07/24/16 03:10 30 Intake and Output 07/23/16 07/23/16 07/24/16 15:00 23:00 07:00 Intake Total 500 ml Output Total 1300 ml Balance -800 ml Exam Constitutional: alert, obese, oriented Head: normocephalic Neck: supple Respiratory: other (Coarse breath sounds bilaterally, no wheezing) Cardiovascular: other (S1-S2 heard), regular rate and rhythm Gastrointestinal: bowel sounds, non-tender, soft Extremities: edema Results Result Diagram: 07/24/16 0641 07/24/16 0641 Results 24 hrs Laboratory Tests Test 07/23/16 17:28 07/23/16 21:36 07/24/16 01:55 07/24/16 06:41 Bedside Glucose 210 205 207 Anion Gap 17 H Basophils # 0.0 Basophils % 0.1 Blood Morphology Comment Blood Urea Nitrogen 87 H Calcium Level 8.8 Carbon Dioxide Level 33 H Chloride Level 90 L Creatinine 2.83 H Eosinophils # 0.1 Eosinophils % 0.7 Glucose Level 260 H Hematocrit 35.9 L Hemoglobin 11.8 L Lymphocytes # 1.1 Lymphocytes % 8.6 L Mean Corpuscular Hemoglobin 28.8 L Mean Corpuscular Hemoglobin Concent 33.0 Mean Corpuscular Volume 87.3 Mean Platelet Volume 7.8 Monocytes # 1.0 H Monocytes % 8.6 Neutrophils # 10.0 H Neutrophils % 82.0 H Nucleated Red Blood Cells # 0.0 Nucleated Red Blood Cells % 0.0 Platelet Count 288 Potassium Level 4.1 Red Blood Count 4.11 L Red Cell Distribution Width 15.8 H Sodium Level 136 White Blood Count 12.1 #H Test 07/24/16 07:32 07/24/16 11:59 Bedside Glucose 297 H 273 H Medications Medications Current Medications Ondansetron HCl (Zofran Inj) 4 mg Q6H PRN IV NAUSEA AND/OR VOMITING Last administered on 07/21/16 14:19; Admin Dose 4 MG; Start 07/21/16 at 13:00 Acetaminophen (Tylenol Tab) 650 mg Q6H PRN PO PAIN LEVEL 1-3 OR FEVER; Start at 13:00 Acetaminophen/ Hydrocodone Bitart ([place] (5/325)) 2 tab Q6H PRN PO SEVERE PAIN LEVEL 7-10 Last administered on 07/23/16 22:02; Admin Dose 2 TAB; Start at 13:00 Hydromorphone HCl (Dilaudid) 0.5 mg Q4H PRN IV SEVERE PAIN LEVEL 7-10 Last administered on 07/24/16 08:41; Admin Dose 0.5 MG; Start 07/21/16 at 13:00 Magnesium Hydroxide (Milk Of Mag) 30 ml DAILY PRN PO CONSTIPATION; Start at 13:00 Bisacodyl (Dulcolax) 5 mg DAILY PRN PO CONSTIPATION Last administered on 09:40; Admin Dose 5 MG; Start 07/21/16 at 13:00 Famotidine (Pepcid) 20 mg Q24H PO Last administered on 07/23/16 21:51; Admin Dose 20 MG; Start 07/21/16 at 21:00 Enoxaparin Sodium (Lovenox) 40 mg DAILY SC Last administered on 07/24/16 08:37 ; Admin Dose 40 MG; Start 07/22/16 at 09:00 Amlodipine Besylate (Norvasc) 5 mg DAILY PO Last administered on 07/24/16 08: 36; Admin Dose 5 MG; Start 07/22/16 at 09:00 Aspirin (Halfprin) 81 mg DAILY PO Last administered on 07/24/16 08:35; Admin Dose 81 MG; Start 07/22/16 at 09:00 Atorvastatin Calcium (Lipitor) 80 mg QHS PO Last administered on 07/23/16 21: 47; Admin Dose 80 MG; Start 07/21/16 at 21:00 Benzonatate (Tessalon) 100 mg TID PRN PO COUGH Last administered on 07/23/16 09:41; Admin Dose 100 MG; Start 07/21/16 at 13:30 Clopidogrel Bisulfate (plaVIX) 75 mg DAILY PO Last administered on 07/24/16 08 :35; Admin Dose 75 MG; Start 07/22/16 at 09:00 Gabapentin (Neurontin) 600 mg TID PO Last administered on 07/24/16 12:03; Admin Dose 600 MG; Start 07/21/16 at 21:00 Sertraline HCl (Zoloft) 50 mg DAILY PO Last administered on 07/24/16 08:36; Admin Dose 50 MG; Start 07/22/16 at 09:00 Trazodone HCl (Desyrel) 100 mg QHS PO Last administered on 07/23/16 21:47; Admin Dose 100 MG; Start 07/21/16 at 21:00 Bumetanide (Bumex) 2 mg BID@06,18 PO Last administered on 07/24/16 05:48; Admin Dose 2 MG; Start 07/21/16 at 17:00 Fenofibrate 145 mg 145 mg DAILY PO Last administered on 07/24/16 08:35; Admin Dose 145 MG; Start 07/22/16 at 09:00 Levofloxacin/ Dextrose (Levaquin 750 Mg/ D5W 150 ml (Pmx)) 150 ml @ 100 mls/hr Q48H IVPB Last administered on 07/23/16 13:33; Admin Dose 100 MLS/HR; Start at 14:00 Miscellaneous Information 1 ea NOTE XX ; Start 07/21/16 at 14:30 Glucose (Glutose) 15 gm Q15M PRN PO DECREASED GLUCOSE; Start 07/21/16 at 14:30 Glucose (Glutose) 22.5 gm Q15M PRN PO DECREASED GLUCOSE; Start 07/21/16 at 14: 30 Dextrose (D50w Syringe) 25 ml Q15M PRN IV DECREASED GLUCOSE; Start 07/21/16 at 14:30 Dextrose (D50w Syringe) 50 ml Q15M PRN IV DECREASED GLUCOSE; Start 07/21/16 at 14:30 Glucagon (Glucagen) 1 mg Q15M PRN IM DECREASED GLUCOSE; Start 07/21/16 at 14:30 Glucose (Glutose) 15 gm Q15M PRN BUCCAL DECREASED GLUCOSE; Start 07/21/16 at 14 :30 Fish Oil (Fish Oil) 2,000 mg BID PO Last administered on 07/24/16 08:34; Admin Dose 2,000 MG; Start 07/22/16 at 21:00 Acetylcysteine (Nac) 1,200 mg BID PO Last administered on 07/24/16 08:35; Admin Dose 1,200 MG; Start 07/22/16 at 13:30; Stop 07/25/16 at 13:29 Liothyronine Sodium (Cytomel) 5 mcg BID PO Last administered on 07/24/16 08:34 ; Admin Dose 5 MCG; Start 07/22/16 at 21:00; Stop 07/27/16 at 20:59 Metoprolol Tartrate (Lopressor) 50 mg BID PO Last administered on 07/24/16 08: 35; Admin Dose 50 MG; Start 07/23/16 at 21:00 Insulin Glargine (Lantus) 45 unit BID@08,20 SC Last administered on 07/24/16 07:59; Admin Dose 45 UNIT; Start 07/23/16 at 20:00 Obed Chavez DO Jul 24, 2016 13:42
--- NOTE | 2016-07-24 18:19 | CONS ---
Date/Time of Note Date/Time of Note DATE: 07/24/16 TIME: 18:17 Assessment/Plan Assessment/Plan Problems: (1) Type 2 diabetes mellitus with hyperglycemia Status: Chronic Comment: Her sugar control is coming and in line but still not at goal. We will continue to adjust for this. Qualifiers: Diabetes mellitus machine long goods helper insulin use: with custodial use Qualified Code : E11.65 - Type 2 diabetes mellitus with hyperglycemia, with long-term current use of insulin (2) Morbid (severe) obesity due to excess calories Status: Chronic Comment: She is on a calorie restriction here (3) Hypothyroidism Status: Chronic Comment: She is on treatment and normalizing slowly Qualifiers: Hypothyroidism type: acquired Qualified Code: E03.9 - Acquired hypothyroidism Consultation Date/Type/Reason Admit Date/Time Jul 21, 2016 at 14:28 Initial Consult Date 07/21/16 Type of Consultation: Endocrinology Reason for Consultation Diabetes mellitus type 2; morbid obesity; hypothyroidism that had been off of treatment Referring Provider: CLEMENT STEVENSON NP 24 HR Interval Summary Constitutional: no complaints Exam/Review of Systems Vital Signs Vitals Vital Signs Date Time Temp Pulse Resp B/P Pulse Ox O2 Delivery O2 Flow Rate FiO2 07/24/16 17:20 3.0 07/24/16 16:42 65 07/24/16 16:02 98.6 18 129/56 96 07/24/16 13:52 Nasal Cannula 07/24/16 03:10 30 Intake and Output 07/23/16 07/23/16 07/24/16 15:00 23:00 07:00 Intake Total 500 ml Output Total 1300 ml Balance -800 ml Exam Constitutional: alert, oriented Respiratory: clear to auscultation, normal air movement Cardiovascular: nl pulses, regular rate and rhythm Gastrointestinal: nl liver, spleen, non-tender, soft Results Result Diagram: 07/24/16 0641 07/24/16 0641 Results 24 hrs Laboratory Tests Test 07/23/16 21:36 07/24/16 01:55 07/24/16 06:41 07/24/16 07:32 Bedside Glucose 205 207 297 H Anion Gap 17 H Basophils # 0.0 Basophils % 0.1 Blood Morphology Comment Blood Urea Nitrogen 87 H Calcium Level 8.8 Carbon Dioxide Level 33 H Chloride Level 90 L Creatinine 2.83 H Eosinophils # 0.1 Eosinophils % 0.7 Glucose Level 260 H Hematocrit 35.9 L Hemoglobin 11.8 L Lymphocytes # 1.1 Lymphocytes % 8.6 L Mean Corpuscular Hemoglobin 28.8 L Mean Corpuscular Hemoglobin Concent 33.0 Mean Corpuscular Volume 87.3 Mean Platelet Volume 7.8 Monocytes # 1.0 H Monocytes % 8.6 Neutrophils # 10.0 H Neutrophils % 82.0 H Nucleated Red Blood Cells # 0.0 Nucleated Red Blood Cells % 0.0 Platelet Count 288 Potassium Level 4.1 Red Blood Count 4.11 L Red Cell Distribution Width 15.8 H Sodium Level 136 White Blood Count 12.1 #H Test 07/24/16 11:59 07/24/16 16:58 Bedside Glucose 273 H 146 Medications Medications Current Medications Ondansetron HCl (Zofran Inj) 4 mg Q6H PRN IV NAUSEA AND/OR VOMITING Last administered on 07/21/16 14:19; Admin Dose 4 MG; Start 07/21/16 at 13:00 Acetaminophen (Tylenol Tab) 650 mg Q6H PRN PO PAIN LEVEL 1-3 OR FEVER; Start at 13:00 Acetaminophen/ Hydrocodone Bitart ([place] (5/325)) 2 tab Q6H PRN PO SEVERE PAIN LEVEL 7-10 Last administered on 07/23/16 22:02; Admin Dose 2 TAB; Start at 13:00 Hydromorphone HCl (Dilaudid) 0.5 mg Q4H PRN IV SEVERE PAIN LEVEL 7-10 Last administered on 07/24/16 15:03; Admin Dose 0.5 MG; Start 07/21/16 at 13:00 Magnesium Hydroxide (Milk Of Mag) 30 ml DAILY PRN PO CONSTIPATION; Start at 13:00 Bisacodyl (Dulcolax) 5 mg DAILY PRN PO CONSTIPATION Last administered on 09:40; Admin Dose 5 MG; Start 07/21/16 at 13:00 Famotidine (Pepcid) 20 mg Q24H PO Last administered on 07/23/16 21:51; Admin Dose 20 MG; Start 07/21/16 at 21:00 Enoxaparin Sodium (Lovenox) 40 mg DAILY SC Last administered on 07/24/16 08:37 ; Admin Dose 40 MG; Start 07/22/16 at 09:00 Aspirin (Halfprin) 81 mg DAILY PO Last administered on 07/24/16 08:35; Admin Dose 81 MG; Start 07/22/16 at 09:00 Atorvastatin Calcium (Lipitor) 80 mg QHS PO Last administered on 07/23/16 21: 47; Admin Dose 80 MG; Start 07/21/16 at 21:00 Benzonatate (Tessalon) 100 mg TID PRN PO COUGH Last administered on 07/23/16 09:41; Admin Dose 100 MG; Start 07/21/16 at 13:30 Clopidogrel Bisulfate (plaVIX) 75 mg DAILY PO Last administered on 07/24/16 08 :35; Admin Dose 75 MG; Start 07/22/16 at 09:00 Gabapentin (Neurontin) 600 mg TID PO Last administered on 07/24/16 12:03; Admin Dose 600 MG; Start 07/21/16 at 21:00 Sertraline HCl (Zoloft) 50 mg DAILY PO Last administered on 07/24/16 08:36; Admin Dose 50 MG; Start 07/22/16 at 09:00 Trazodone HCl (Desyrel) 100 mg QHS PO Last administered on 07/23/16 21:47; Admin Dose 100 MG; Start 07/21/16 at 21:00 Bumetanide (Bumex) 2 mg BID@06,18 PO Last administered on 07/24/16 17:13; Admin Dose 2 MG; Start 07/21/16 at 17:00 Fenofibrate 145 mg 145 mg DAILY PO Last administered on 07/24/16 08:35; Admin Dose 145 MG; Start 07/22/16 at 09:00 Levofloxacin/ Dextrose (Levaquin 750 Mg/ D5W 150 ml (Pmx)) 150 ml @ 100 mls/hr Q48H IVPB Last administered on 07/23/16 13:33; Admin Dose 100 MLS/HR; Start at 14:00 Miscellaneous Information 1 ea NOTE XX ; Start 07/21/16 at 14:30 Glucose (Glutose) 15 gm Q15M PRN PO DECREASED GLUCOSE; Start 07/21/16 at 14:30 Glucose (Glutose) 22.5 gm Q15M PRN PO DECREASED GLUCOSE; Start 07/21/16 at 14: 30 Dextrose (D50w Syringe) 25 ml Q15M PRN IV DECREASED GLUCOSE; Start 07/21/16 at 14:30 Dextrose (D50w Syringe) 50 ml Q15M PRN IV DECREASED GLUCOSE; Start 07/21/16 at 14:30 Glucagon (Glucagen) 1 mg Q15M PRN IM DECREASED GLUCOSE; Start 07/21/16 at 14:30 Glucose (Glutose) 15 gm Q15M PRN BUCCAL DECREASED GLUCOSE; Start 07/21/16 at 14 :30 Fish Oil (Fish Oil) 2,000 mg BID PO Last administered on 07/24/16 08:34; Admin Dose 2,000 MG; Start 07/22/16 at 21:00 Acetylcysteine (Nac) 1,200 mg BID PO Last administered on 07/24/16 08:35; Admin Dose 1,200 MG; Start 07/22/16 at 13:30; Stop 07/25/16 at 13:29 Liothyronine Sodium (Cytomel) 5 mcg BID PO Last administered on 07/24/16 08:34 ; Admin Dose 5 MCG; Start 07/22/16 at 21:00; Stop 07/27/16 at 20:59 Metoprolol Tartrate (Lopressor) 50 mg BID PO Last administered on 07/24/16 08: 35; Admin Dose 50 MG; Start 07/23/16 at 21:00 Insulin Glargine (Lantus) 45 unit BID@08,20 SC Last administered on 07/24/16 07:59; Admin Dose 45 UNIT; Start 07/23/16 at 20:00 Amlodipine Besylate (Norvasc) 2.5 mg DAILY PO ; Start 07/25/16 at 09:00 TYRELL MAYORGA MD Jul 24, 2016 18:19
[2016-07-24] MEDS: ATORVASTATIN 80 MG TAB PO SCH (20:21)
[2016-07-24] MEDS: traZODone 100 MG TAB PO SCH (20:22)
[2016-07-24] MEDS: FAMOTIDINE 20 MG TAB PO SCH (20:22)
[2016-07-25] VITALS (14 sets, daily range): BP systolic 113–131; BP diastolic 56–61; PULSE 63–80; RESP 16–18
[2016-07-25] MEDS: HYDROmorphONE 1 MG/ML SYG IV PRN ×3 (01:58→20:53)
[2016-07-25] MEDS: BUMETANIDE 1 MG TAB PO SCH ×2 (06:09→17:43)
[2016-07-25] MEDS: LEVOTHYROXINE 100 MCG TAB PO SCH (06:09)
[2016-07-25] MEDS: ALBUTEROL/IPRATROPIUM (NEB) 3 ML AMP HHN SCH ×3 (07:30→20:17)
[2016-07-25 08:19] LABS: BASOPHILS % 0.2 % (0.0-2.0); EOSINOPHILS # 0.1 10^3/ul (0.0-0.5); EOSINOPHILS % 1.1 % (0.0-7.0); HEMATOCRIT 34.7 % (37.0-47.0); HEMOGLOBIN 11.3 g/dl (12.0-16.0); LYMPHOCYTES # 1.1 10^3/ul (0.8-2.9); LYMPHOCYTES % 8.9 % (15.0-51.0); MEAN CORPUSCULAR HEMOGLOBIN 28.5 pg (29.0-33.0); MEAN CORPUSCULAR HGB CONC 32.7 g/dl (32.0-37.0); MEAN CORPUSCULAR VOLUME 87.4 fl (82.0-101.0); MONOCYTE # 1.2 10^3/ul (0.3-0.9); MONOCYTES % 10.2 % (0.0-11.0); NEUTROPHIL # 9.5 10^3/ul (1.6-7.5); NEUTROPHILS % 79.6 % (39.0-77.0); PLATELET COUNT 281 10^3/UL (140-440); RED BLOOD COUNT 3.98 10^6/ul (4.20-5.40); RED CELL DISTRIBUTION WIDTH 15.9 % (11.5-14.5)
[2016-07-25 08:21] LABS: CONDITION 1; LH ANALYZER COMMENTS 1
[2016-07-25 08:35] LABS: POTASSIUM 4.4 mmol/L (3.5-5.1)
[2016-07-25 08:37] LABS: CREATININE 2.59 mg/dl (0.44-1.00)
[2016-07-25] MEDS: FISH OIL 1,000 MG CAP PO SCH ×2 (08:43→20:51)
[2016-07-25] MEDS: CLOPIDOGREL 75 MG TAB PO SCH (08:43)
[2016-07-25] MEDS: GABAPENTIN 300 MG CAP PO SCH ×3 (08:43→20:51)
[2016-07-25] MEDS: ASPIRIN (EC) 81 MG TAB PO SCH (08:44)
[2016-07-25] MEDS: FENOFIBRATE 145 MG TAB PO SCH (08:44)
[2016-07-25] MEDS: ACETYLCYSTEINE 600 MG CAP PO SCH (08:44)
[2016-07-25] MEDS: AMLODIPINE 2.5 MG TAB PO SCH (08:47)
[2016-07-25] MEDS: METOPROLOL 50 MG TAB PO SCH ×2 (08:55→20:52)
[2016-07-25] MEDS: LIOTHYRONINE 5 MCG TAB PO SCH ×2 (08:55→20:51)
[2016-07-25] MEDS: SERTRALINE 50 MG TAB PO SCH (08:55)
[2016-07-25] MEDS ORDERED: ENOXAPARIN 40 MG/0.4 ML SYG SC SCH (09:00)
[2016-07-25] MEDS: INSULIN ASPART [NOVOLOG] 3 ML PEN SC SCH ×7 (09:00→21:00)
[2016-07-25] MEDS: INSULIN GLARGINE [LANtus] 3 ML PEN SC SCH ×2 (09:00→21:39)
[2016-07-25] MEDS: ENOXAPARIN 30 MG/0.3 ML SYG SC SCH (09:05)
--- NOTE | 2016-07-25 10:55 | CONS ---
Date/Time of Note Date/Time of Note DATE: 07/25/16 TIME: 10:53 Assessment/Plan Assessment/Plan Problems: (1) Type 2 diabetes mellitus with hyperglycemia Status: Chronic Comment: Her sugar control is varying. There is no evidence of active infection. I am going to add in [place] to help smooth this through. She will be maintained on a calorie restriction diet that is diabetic Qualifiers: Diabetes mellitus longterm insulin use: with longterm use Qualified Code : E11.65 - Type 2 diabetes mellitus with hyperglycemia, with long-term current use of insulin (2) Morbid (severe) obesity due to excess calories Status: Chronic Comment: Calorie restriction diet (3) Hypothyroidism Status: Chronic Comment: Continue on thyroid hormone replacement therapy Qualifiers: Hypothyroidism type: acquired Qualified Code: E03.9 - Acquired hypothyroidism (4) Left medial tibial plateau fracture Status: Acute Comment: As per orthopedics (5) E. coli UTI (urinary tract infection) Status: Acute Comment: Has been on Levaquin which we have culture demonstrating sensitivity Consultation Date/Type/Reason Admit Date/Time Jul 21, 2016 at 14:28 Initial Consult Date 07/21/16 Type of Consultation: Endocrinology Referring Provider: CLEMENT STEVENSON NP 24 HR Interval Summary Constitutional: no complaints Detailed Summary Respiratory: no complaints Cardiovascular: no complaints Gastrointestinal: no complaints Exam/Review of Systems Vital Signs Vitals Vital Signs Date Time Temp Pulse Resp B/P Pulse Ox O2 Delivery O2 Flow Rate FiO2 07/25/16 08:31 99.0 76 18 131/58 97 07/25/16 07:31 30 07/25/16 04:00 CPAP 07/24/16 23:56 3.0 Intake and Output 07/24/16 07/24/16 07/25/16 15:00 23:00 07:00 Intake Total 600 ml 600 ml Output Total 1600 ml 950 ml Balance -1000 ml -350 ml Exam Constitutional: alert, oriented Respiratory: clear to auscultation, normal air movement Cardiovascular: nl pulses, regular rate and rhythm Gastrointestinal: nl liver, spleen, non-tender, soft Results Result Diagram: 07/25/16 0710 07/25/16 0710 Results 24 hrs Laboratory Tests Test 07/24/16 11:59 07/24/16 16:58 07/24/16 20:07 07/25/16 02:04 Bedside Glucose 273 H 146 186 198 Test 07/25/16 07:10 07/25/16 07:47 Anion Gap 18 H Basophils # 0.0 Basophils % 0.2 Blood Morphology Comment Blood Urea Nitrogen 90 H Calcium Level 9.0 Carbon Dioxide Level 33 H Chloride Level 87 L Creatinine 2.59 H Eosinophils # 0.1 Eosinophils % 1.1 Glucose Level 233 H Hematocrit 34.7 L Hemoglobin 11.3 L Lymphocytes # 1.1 Lymphocytes % 8.9 L Mean Corpuscular Hemoglobin 28.5 L Mean Corpuscular Hemoglobin Concent 32.7 Mean Corpuscular Volume 87.4 Mean Platelet Volume 8.0 Monocytes # 1.2 H Monocytes % 10.2 Neutrophils # 9.5 H Neutrophils % 79.6 H Nucleated Red Blood Cells # 0.0 Nucleated Red Blood Cells % 0.0 Platelet Count 281 Potassium Level 4.4 Red Blood Count 3.98 L Red Cell Distribution Width 15.9 H Sodium Level 134 L White Blood Count 12.0 H Bedside Glucose 272 H Medications Medications Current Medications Ondansetron HCl (Zofran Inj) 4 mg Q6H PRN IV NAUSEA AND/OR VOMITING Last administered on 07/21/16 14:19; Admin Dose 4 MG; Start 07/21/16 at 13:00 Acetaminophen (Tylenol Tab) 650 mg Q6H PRN PO PAIN LEVEL 1-3 OR FEVER; Start at 13:00 Acetaminophen/ Hydrocodone Bitart ([place] (5/325)) 2 tab Q6H PRN PO SEVERE PAIN LEVEL 7-10 Last administered on 07/23/16 22:02; Admin Dose 2 TAB; Start at 13:00 Hydromorphone HCl (Dilaudid) 0.5 mg Q4H PRN IV SEVERE PAIN LEVEL 7-10 Last administered on 07/25/16 06:09; Admin Dose 0.5 MG; Start 07/21/16 at 13:00 Magnesium Hydroxide (Milk Of Mag) 30 ml DAILY PRN PO CONSTIPATION; Start at 13:00 Bisacodyl (Dulcolax) 5 mg DAILY PRN PO CONSTIPATION Last administered on 09:40; Admin Dose 5 MG; Start 07/21/16 at 13:00 Famotidine (Pepcid) 20 mg Q24H PO Last administered on 07/24/16 20:22; Admin Dose 20 MG; Start 07/21/16 at 21:00 Aspirin (Halfprin) 81 mg DAILY PO Last administered on 07/25/16 08:44; Admin Dose 81 MG; Start 07/22/16 at 09:00 Atorvastatin Calcium (Lipitor) 80 mg QHS PO Last administered on 07/24/16 20: 21; Admin Dose 80 MG; Start 07/21/16 at 21:00 Benzonatate (Tessalon) 100 mg TID PRN PO COUGH Last administered on 07/23/16 09:41; Admin Dose 100 MG; Start 07/21/16 at 13:30 Clopidogrel Bisulfate (plaVIX) 75 mg DAILY PO Last administered on 07/25/16 08 :43; Admin Dose 75 MG; Start 07/22/16 at 09:00 Gabapentin (Neurontin) 600 mg TID PO Last administered on 07/25/16 08:43; Admin Dose 600 MG; Start 07/21/16 at 21:00 Sertraline HCl (Zoloft) 50 mg DAILY PO Last administered on 07/25/16 08:55; Admin Dose 50 MG; Start 07/22/16 at 09:00 Trazodone HCl (Desyrel) 100 mg QHS PO Last administered on 07/24/16 20:22; Admin Dose 100 MG; Start 07/21/16 at 21:00 Bumetanide (Bumex) 2 mg BID@06,18 PO Last administered on 07/25/16 06:09; Admin Dose 2 MG; Start 07/21/16 at 17:00 Fenofibrate 145 mg 145 mg DAILY PO Last administered on 07/25/16 08:44; Admin Dose 145 MG; Start 07/22/16 at 09:00 Levofloxacin/ Dextrose (Levaquin 750 Mg/ D5W 150 ml (Pmx)) 150 ml @ 100 mls/hr Q48H IVPB Last administered on 07/23/16 13:33; Admin Dose 100 MLS/HR; Start at 14:00 Miscellaneous Information 1 ea NOTE XX ; Start 07/21/16 at 14:30 Glucose (Glutose) 15 gm Q15M PRN PO DECREASED GLUCOSE; Start 07/21/16 at 14:30 Glucose (Glutose) 22.5 gm Q15M PRN PO DECREASED GLUCOSE; Start 07/21/16 at 14: 30 Dextrose (D50w Syringe) 25 ml Q15M PRN IV DECREASED GLUCOSE; Start 07/21/16 at 14:30 Dextrose (D50w Syringe) 50 ml Q15M PRN IV DECREASED GLUCOSE; Start 07/21/16 at 14:30 Glucagon (Glucagen) 1 mg Q15M PRN IM DECREASED GLUCOSE; Start 07/21/16 at 14:30 Glucose (Glutose) 15 gm Q15M PRN BUCCAL DECREASED GLUCOSE; Start 07/21/16 at 14 :30 Fish Oil (Fish Oil) 2,000 mg BID PO Last administered on 07/25/16 08:43; Admin Dose 2,000 MG; Start 07/22/16 at 21:00 Acetylcysteine (Nac) 1,200 mg BID PO Last administered on 07/25/16 08:44; Admin Dose 1,200 MG; Start 07/22/16 at 13:30; Stop 07/25/16 at 13:29 Liothyronine Sodium (Cytomel) 5 mcg BID PO Last administered on 07/25/16 08:55 ; Admin Dose 5 MCG; Start 07/22/16 at 21:00; Stop 07/27/16 at 20:59 Metoprolol Tartrate (Lopressor) 50 mg BID PO Last administered on 07/25/16 08: 55; Admin Dose 50 MG; Start 07/23/16 at 21:00 Amlodipine Besylate (Norvasc) 2.5 mg DAILY PO Last administered on 07/25/16 08 :47; Admin Dose 2.5 MG; Start 07/25/16 at 09:00 Insulin Glargine (Lantus) 50 unit BID@08,20 SC Last administered on 07/25/16 09:00; Admin Dose 50 UNIT; Start 07/24/16 at 20:00 Enoxaparin Sodium (Lovenox) 30 mg DAILY SC Last administered on 07/25/16 09:05 ; Admin Dose 30 MG; Start 07/25/16 at 09:00 TYRELL MAYORGA MD Jul 25, 2016 10:55
[2016-07-25] MEDS: HYDROCODONE/APAP (5/325) TAB PO PRN ×2 (12:28→23:05)
[2016-07-25] MEDS: LINAGLIPTIN 5 MG TABLET PO SCH (12:40)
[2016-07-25] MEDS: LEVOFLOXACIN 750MG/D5W (PMX) 150 ML IVPB SCH (14:45)
--- NOTE | 2016-07-25 16:33 | PN ---
Date/Time of Note Date/Time of Note DATE: 07/25/16 TIME: 16:32 Assessment/Plan VTE Prophylaxis VTE Prophylaxis Intervention: SCD's Lines/Catheters IV Catheter Type (from Nrs): Saline Lock Urinary Cath still in place: Yes Reason Cath still needed: other (indicate) Assessment/Plan Chief Complaint/Hosp Course ASSESSMENT AND PLAN: 1. Right lateral tibial plateau fracture. The patient will be placed on bed rest. An orthopedic surgery consult has been obtained. Continue pain meds . 2. diabetes II. . The patient insulin regimen as per Endocrinology. 2. Chronic kidney disease. The patient has chronic kidney disease. The patient's BUN and creatinine will be monitored closely. Nephrotoxic drugs will be used with caution. 3. Possible underlying healthcare-associated pneumonia. The patient was recently treated for lower respiratory tract infection. The patient's current chest x-ray showing evidence of a new left lower lobe infiltrate/atelectasis. The patient will be treated for underlying health care associated pneumonia. The patient has no evidence of any sepsis. 4. Hyperlipidemia. The patient's antilipemic medications will be resumed. 5. Coronary artery disease, status post stenting in 2012. The patient had cardiac stents x2 placed at [facility] in 2012. The patient is currently on aspirin. This will be continued. Cardiology evaluation will be obtained. Continue aggressive medical management 6. Depression. Continue antidepressants 7. Anxiety. Continue anxiolytics 8. Morbid obesity. Weight reduction will be advised. 9. Hypothyroidism. The patient's Synthroid will be resumed. DVT prophylaxis on Lovenox GI prophylaxis is on PPI We will continue monitor patient closely for recommendation management treatment as clinical course Problems: Subjective 24 Hr Interval Summary Free Text/Dictation Denies of any chest pain or shortness of breath Waiting for right knee brace Tolerating oral intake Exam/Review of Systems Vital Signs Vitals Vital Signs Date Time Temp Pulse Resp B/P Pulse Ox O2 Delivery O2 Flow Rate FiO2 07/25/16 16:10 98.5 68 18 113/56 95 07/25/16 12:30 Nasal Cannula 3.0 07/25/16 07:31 30 Intake and Output 07/24/16 07/24/16 07/25/16 15:00 23:00 07:00 Intake Total 600 ml 600 ml Output Total 1600 ml 950 ml Balance -1000 ml -350 ml Exam General: The patient is obesity obese, Not in acute distress. HEENT: Atraumatic, normocephalic. The pupils are equal and round . Neck: Supple with full range of motion. Chest: Normal expansion of the thorax during inspiration Lungs: Clear to auscultation bilaterally Heart: Normal S1-S2, Regular rhythm and rate. Abdomen: Soft , nontender, nondistended , bowel sounds are present. Extremities: Right knee in stabilizer, no edema no cyanosis Neurologic: Normal mental status,The patient is awake, alert and oriented . Results Result Diagram: 07/25/16 0710 07/25/16 0710 Results 24 hrs Laboratory Tests Test 07/24/16 16:58 07/24/16 20:07 07/25/16 02:04 07/25/16 07:10 Bedside Glucose 146 186 198 Anion Gap 18 H Basophils # 0.0 Basophils % 0.2 Blood Morphology Comment Blood Urea Nitrogen 90 H Calcium Level 9.0 Carbon Dioxide Level 33 H Chloride Level 87 L Creatinine 2.59 H Eosinophils # 0.1 Eosinophils % 1.1 Glucose Level 233 H Hematocrit 34.7 L Hemoglobin 11.3 L Lymphocytes # 1.1 Lymphocytes % 8.9 L Mean Corpuscular Hemoglobin 28.5 L Mean Corpuscular Hemoglobin Concent 32.7 Mean Corpuscular Volume 87.4 Mean Platelet Volume 8.0 Monocytes # 1.2 H Monocytes % 10.2 Neutrophils # 9.5 H Neutrophils % 79.6 H Nucleated Red Blood Cells # 0.0 Nucleated Red Blood Cells % 0.0 Platelet Count 281 Potassium Level 4.4 Red Blood Count 3.98 L Red Cell Distribution Width 15.9 H Sodium Level 134 L White Blood Count 12.0 H Test 07/25/16 07:47 07/25/16 12:19 Bedside Glucose 272 H 259 H Medications Medications Current Medications Ondansetron HCl (Zofran Inj) 4 mg Q6H PRN IV NAUSEA AND/OR VOMITING Last administered on 07/21/16 14:19; Admin Dose 4 MG; Start 07/21/16 at 13:00 Acetaminophen (Tylenol Tab) 650 mg Q6H PRN PO PAIN LEVEL 1-3 OR FEVER; Start at 13:00 Acetaminophen/ Hydrocodone Bitart ([place] (5/325)) 2 tab Q6H PRN PO SEVERE PAIN LEVEL 7-10 Last administered on 07/25/16 12:28; Admin Dose 2 TAB; Start at 13:00 Hydromorphone HCl (Dilaudid) 0.5 mg Q4H PRN IV SEVERE PAIN LEVEL 7-10 Last administered on 07/25/16 06:09; Admin Dose 0.5 MG; Start 07/21/16 at 13:00 Magnesium Hydroxide (Milk Of Mag) 30 ml DAILY PRN PO CONSTIPATION; Start at 13:00 Bisacodyl (Dulcolax) 5 mg DAILY PRN PO CONSTIPATION Last administered on 09:40; Admin Dose 5 MG; Start 07/21/16 at 13:00 Famotidine (Pepcid) 20 mg Q24H PO Last administered on 07/24/16 20:22; Admin Dose 20 MG; Start 07/21/16 at 21:00 Aspirin (Halfprin) 81 mg DAILY PO Last administered on 07/25/16 08:44; Admin Dose 81 MG; Start 07/22/16 at 09:00 Atorvastatin Calcium (Lipitor) 80 mg QHS PO Last administered on 07/24/16 20: 21; Admin Dose 80 MG; Start 07/21/16 at 21:00 Benzonatate (Tessalon) 100 mg TID PRN PO COUGH Last administered on 07/23/16 09:41; Admin Dose 100 MG; Start 07/21/16 at 13:30 Clopidogrel Bisulfate (plaVIX) 75 mg DAILY PO Last administered on 07/25/16 08 :43; Admin Dose 75 MG; Start 07/22/16 at 09:00 Gabapentin (Neurontin) 600 mg TID PO Last administered on 07/25/16 12:28; Admin Dose 600 MG; Start 07/21/16 at 21:00 Sertraline HCl (Zoloft) 50 mg DAILY PO Last administered on 07/25/16 08:55; Admin Dose 50 MG; Start 07/22/16 at 09:00 Trazodone HCl (Desyrel) 100 mg QHS PO Last administered on 07/24/16 20:22; Admin Dose 100 MG; Start 07/21/16 at 21:00 Bumetanide (Bumex) 2 mg BID@18 PO Last administered on 07/25/16 06:09; Admin Dose 2 MG; Start 07/21/16 at 17:00 Fenofibrate 145 mg 145 mg DAILY PO Last administered on 07/25/16 08:44; Admin Dose 145 MG; Start 07/22/16 at 09:00 Levofloxacin/ Dextrose (Levaquin 750 Mg/ D5W 150 ml (Pmx)) 150 ml @ 100 mls/hr Q48H IVPB Last administered on 07/25/16 14:45; Admin Dose 100 MLS/HR; Start at 14:00 Miscellaneous Information 1 ea NOTE XX ; Start 07/21/16 at 14:30 Glucose (Glutose) 15 gm Q15M PRN PO DECREASED GLUCOSE; Start 07/21/16 at 14:30 Glucose (Glutose) 22.5 gm Q15M PRN PO DECREASED GLUCOSE; Start 07/21/16 at 14: 30 Dextrose (D50w Syringe) 25 ml Q15M PRN IV DECREASED GLUCOSE; Start 07/21/16 at 14:30 Dextrose (D50w Syringe) 50 ml Q15M PRN IV DECREASED GLUCOSE; Start 07/21/16 at 14:30 Glucagon (Glucagen) 1 mg Q15M PRN IM DECREASED GLUCOSE; Start 07/21/16 at 14:30 Glucose (Glutose) 15 gm Q15M PRN BUCCAL DECREASED GLUCOSE; Start 07/21/16 at 14 :30 Fish Oil (Fish Oil) 2,000 mg BID PO Last administered on 07/25/16 08:43; Admin Dose 2,000 MG; Start 07/22/16 at 21:00 Liothyronine Sodium (Cytomel) 5 mcg BID PO Last administered on 07/25/16 08:55 ; Admin Dose 5 MCG; Start 07/22/16 at 21:00; Stop 07/27/16 at 20:59 Metoprolol Tartrate (Lopressor) 50 mg BID PO Last administered on 07/25/16 08: 55; Admin Dose 50 MG; Start 07/23/16 at 21:00 Amlodipine Besylate (Norvasc) 2.5 mg DAILY PO Last administered on 07/25/16 08 :47; Admin Dose 2.5 MG; Start 07/25/16 at 09:00 Insulin Glargine (Lantus) 50 unit BID@08,20 SC Last administered on 07/25/16 09:00; Admin Dose 50 UNIT; Start 07/24/16 at 20:00 Enoxaparin Sodium (Lovenox) 30 mg DAILY SC Last administered on 07/25/16 09:05 ; Admin Dose 30 MG; Start 07/25/16 at 09:00 Linagliptin (Tradjenta) 5 mg DAILY PO Last administered on 07/25/16 12:40; Admin Dose 5 MG; Start 07/25/16 at 11:00 FLOYD FONTANA MD Jul 25, 2016 16:33
--- NOTE | 2016-07-25 18:35 | CONS ---
Date/Time of Note Date/Time of Note DATE: 07/25/16 TIME: 18:33 Assessment/Plan Assessment/Plan Additional Assessment/Plan Lower extremity fracture CAD with history of stent in 2012 Preserved ejection fraction Hypertension Obesity -Blood pressure trend remains stable, renal function is improving. Continue antiplatelet therapy, statin and beta-samantha. Consultation Date/Type/Reason Admit Date/Time Jul 21, 2016 at 14:28 Initial Consult Date 07/21/16 Type of Consultation: cv Referring Provider: CLEMENT STEVENSON FREIGHT RECEIVER 24 HR Interval Summary Free Text/Dictation Denies chest pain, shortness of breath is better Exam/Review of Systems Vital Signs Vitals Vital Signs Date Time Temp Pulse Resp B/P Pulse Ox O2 Delivery O2 Flow Rate FiO2 07/25/16 16:45 68 07/25/16 16:10 98.5 18 113/56 95 07/25/16 12:30 Nasal Cannula 3.0 07/25/16 07:31 30 Intake and Output 07/24/16 07/24/16 07/25/16 15:00 23:00 07:00 Intake Total 600 ml 600 ml Output Total 1600 ml 950 ml Balance -1000 ml -350 ml Exam No apparent distress Constitutional: alert, obese, oriented Head: normocephalic Neck: supple Respiratory: other (Coarse breath sounds bilaterally, no wheezing) Cardiovascular: other (S1-S2 heard), regular rate and rhythm Gastrointestinal: bowel sounds, non-tender, other (No guarding), soft Extremities: edema Results Result Diagram: 07/25/16 0710 07/25/16 0710 Results 24 hrs Laboratory Tests Test 07/24/16 20:07 07/25/16 02:04 07/25/16 07:10 07/25/16 07:47 Bedside Glucose 186 198 272 H Anion Gap 18 H Basophils # 0.0 Basophils % 0.2 Blood Morphology Comment Blood Urea Nitrogen 90 H Calcium Level 9.0 Carbon Dioxide Level 33 H Chloride Level 87 L Creatinine 2.59 H Eosinophils # 0.1 Eosinophils % 1.1 Glucose Level 233 H Hematocrit 34.7 L Hemoglobin 11.3 L Lymphocytes # 1.1 Lymphocytes % 8.9 L Mean Corpuscular Hemoglobin 28.5 L Mean Corpuscular Hemoglobin Concent 32.7 Mean Corpuscular Volume 87.4 Mean Platelet Volume 8.0 Monocytes # 1.2 H Monocytes % 10.2 Neutrophils # 9.5 H Neutrophils % 79.6 H Nucleated Red Blood Cells # 0.0 Nucleated Red Blood Cells % 0.0 Platelet Count 281 Potassium Level 4.4 Red Blood Count 3.98 L Red Cell Distribution Width 15.9 H Sodium Level 134 L White Blood Count 12.0 H Test 07/25/16 12:19 07/25/16 17:17 Bedside Glucose 259 H 181 Medications Medications Current Medications Ondansetron HCl (Zofran Inj) 4 mg Q6H PRN IV NAUSEA AND/OR VOMITING Last administered on 07/21/16 14:19; Admin Dose 4 MG; Start 07/21/16 at 13:00 Acetaminophen (Tylenol Tab) 650 mg Q6H PRN PO PAIN LEVEL 1-3 OR FEVER; Start at 13:00 Acetaminophen/ Hydrocodone Bitart ([place] (5/325)) 2 tab Q6H PRN PO SEVERE PAIN LEVEL 7-10 Last administered on 07/25/16 12:28; Admin Dose 2 TAB; Start at 13:00 Hydromorphone HCl (Dilaudid) 0.5 mg Q4H PRN IV SEVERE PAIN LEVEL 7-10 Last administered on 07/25/16 06:09; Admin Dose 0.5 MG; Start 07/21/16 at 13:00 Magnesium Hydroxide (Milk Of Mag) 30 ml DAILY PRN PO CONSTIPATION; Start at 13:00 Bisacodyl (Dulcolax) 5 mg DAILY PRN PO CONSTIPATION Last administered on 09:40; Admin Dose 5 MG; Start 07/21/16 at 13:00 Famotidine (Pepcid) 20 mg Q24H PO Last administered on 07/24/16 20:22; Admin Dose 20 MG; Start 07/21/16 at 21:00 Aspirin (Halfprin) 81 mg DAILY PO Last administered on 07/25/16 08:44; Admin Dose 81 MG; Start 07/22/16 at 09:00 Atorvastatin Calcium (Lipitor) 80 mg QHS PO Last administered on 07/24/16 20: 21; Admin Dose 80 MG; Start 07/21/16 at 21:00 Benzonatate (Tessalon) 100 mg TID PRN PO COUGH Last administered on 07/23/16 09:41; Admin Dose 100 MG; Start 07/21/16 at 13:30 Clopidogrel Bisulfate (plaVIX) 75 mg DAILY PO Last administered on 07/25/16 08 :43; Admin Dose 75 MG; Start 07/22/16 at 09:00 Gabapentin (Neurontin) 600 mg TID PO Last administered on 07/25/16 12:28; Admin Dose 600 MG; Start 07/21/16 at 21:00 Sertraline HCl (Zoloft) 50 mg DAILY PO Last administered on 07/25/16 08:55; Admin Dose 50 MG; Start 07/22/16 at 09:00 Trazodone HCl (Desyrel) 100 mg QHS PO Last administered on 07/24/16 20:22; Admin Dose 100 MG; Start 07/21/16 at 21:00 Bumetanide (Bumex) 2 mg BID@06,18 PO Last administered on 07/25/16 17:43; Admin Dose 2 MG; Start 07/21/16 at 17:00 Fenofibrate 145 mg 145 mg DAILY PO Last administered on 07/25/16 08:44; Admin Dose 145 MG; Start 07/22/16 at 09:00 Levofloxacin/ Dextrose (Levaquin 750 Mg/ D5W 150 ml (Pmx)) 150 ml @ 100 mls/hr Q48H IVPB Last administered on 07/25/16 14:45; Admin Dose 100 MLS/HR; Start at 14:00 Miscellaneous Information 1 ea NOTE XX ; Start 07/21/16 at 14:30 Glucose (Glutose) 15 gm Q15M PRN PO DECREASED GLUCOSE; Start 07/21/16 at 14:30 Glucose (Glutose) 22.5 gm Q15M PRN PO DECREASED GLUCOSE; Start 07/21/16 at 14: 30 Dextrose (D50w Syringe) 25 ml Q15M PRN IV DECREASED GLUCOSE; Start 07/21/16 at 14:30 Dextrose (D50w Syringe) 50 ml Q15M PRN IV DECREASED GLUCOSE; Start 07/21/16 at 14:30 Glucagon (Glucagen) 1 mg Q15M PRN IM DECREASED GLUCOSE; Start 07/21/16 at 14:30 Glucose (Glutose) 15 gm Q15M PRN BUCCAL DECREASED GLUCOSE; Start 07/21/16 at 14 :30 Fish Oil (Fish Oil) 2,000 mg BID PO Last administered on 07/25/16 08:43; Admin Dose 2,000 MG; Start 07/22/16 at 21:00 Liothyronine Sodium (Cytomel) 5 mcg BID PO Last administered on 07/25/16 08:55 ; Admin Dose 5 MCG; Start 07/22/16 at 21:00; Stop 07/27/16 at 20:59 Metoprolol Tartrate (Lopressor) 50 mg BID PO Last administered on 07/25/16 08: 55; Admin Dose 50 MG; Start 07/23/16 at 21:00 Amlodipine Besylate (Norvasc) 2.5 mg DAILY PO Last administered on 07/25/16 08 :47; Admin Dose 2.5 MG; Start 07/25/16 at 09:00 Insulin Glargine (Lantus) 50 unit BID@08,20 SC Last administered on 07/25/16 09:00; Admin Dose 50 UNIT; Start 07/24/16 at 20:00 Enoxaparin Sodium (Lovenox) 30 mg DAILY SC Last administered on 07/25/16 09:05 ; Admin Dose 30 MG; Start 07/25/16 at 09:00 Linagliptin (Tradjenta) 5 mg DAILY PO Last administered on 07/25/16 12:40; Admin Dose 5 MG; Start 07/25/16 at 11:00 Obed Chavez DO Jul 25, 2016 18:35
[2016-07-25] MEDS: traZODone 100 MG TAB PO SCH (20:51)
[2016-07-25] MEDS: ATORVASTATIN 80 MG TAB PO SCH (20:51)
[2016-07-25] MEDS: FAMOTIDINE 20 MG TAB PO SCH (20:51)
[2016-07-26] VITALS (7 sets, daily range): BP systolic 113–123; BP diastolic 55–59; PULSE 65–72; RESP 17–22
[2016-07-26] MEDS ORDERED: LORAZEPAM 2 MG INJ IV ONE
[2016-07-26] MEDS: LEVOTHYROXINE 100 MCG TAB PO SCH (06:54)
[2016-07-26] MEDS: BUMETANIDE 1 MG TAB PO SCH (06:54)
[2016-07-26] MEDS: ALBUTEROL/IPRATROPIUM (NEB) 3 ML AMP HHN SCH ×2 (08:21→13:39)
[2016-07-26] MEDS: INSULIN ASPART [NOVOLOG] 3 ML PEN SC SCH ×3 (08:45→12:33)
[2016-07-26] MEDS: INSULIN GLARGINE [LANtus] 3 ML PEN SC SCH (08:46)
[2016-07-26] MEDS: LIOTHYRONINE 5 MCG TAB PO SCH (08:53)
[2016-07-26] MEDS: LINAGLIPTIN 5 MG TABLET PO SCH (08:54)
[2016-07-26] MEDS: SERTRALINE 50 MG TAB PO SCH (08:54)
[2016-07-26] MEDS: GABAPENTIN 300 MG CAP PO SCH ×2 (08:54→12:36)
[2016-07-26] MEDS: ASPIRIN (EC) 81 MG TAB PO SCH (08:54)
[2016-07-26] MEDS: CLOPIDOGREL 75 MG TAB PO SCH (08:54)
[2016-07-26] MEDS: AMLODIPINE 2.5 MG TAB PO SCH (08:55)
[2016-07-26] MEDS: FISH OIL 1,000 MG CAP PO SCH (08:55)
[2016-07-26] MEDS: METOPROLOL 50 MG TAB PO SCH (08:56)
[2016-07-26] MEDS: ENOXAPARIN 30 MG/0.3 ML SYG SC SCH (08:58)
[2016-07-26] MEDS: FENOFIBRATE 145 MG TAB PO SCH (09:00)
[2016-07-26] MEDS ORDERED: INSULIN ASPART [NOVOLOG] 3 ML PEN SC SCH (12:00)
--- NOTE | 2016-07-26 14:15 | DS ---
Date/Time of Note Date/Time of Note DATE: 07/26/16 TIME: 14:13 Discharge Summary Admission/Discharge Info Admit Date/Time Jul 21, 2016 at 14:28 Discharge Date/Time 07/26/16 Final Diagnosis DISCHARGE DIAGNOSIS: 1. Right lateral tibial plateau fracture. Patient was seen and evaluated by orthopedic surgeon. No surgical intervention. The patient has been placed on a brace. Nonweightbearing x6 weeks. 2. Diabetes mellitus, uncontrolled. Endocrinology was consulted. Continue premeal insulin And Lantus, low carbohydrate diet. 3. Chronic renal insufficiency. Follow with nephrology as outpatient. 4. Healthcare-associated pneumonia, on Levaquin. 5. Dyslipidemia. Continue statin. 6. Coronary artery disease. Continue aspirin, Plavix, beta samantha, and statin. 7. Depression. Continue antidepressants. 8. Anxiety. Continue anxiety medication. 9. Morbid obesity. Weight reduction has been advised. 10. Hypothyroidism. Continue Synthroid. 13. Sleep apnea. Continue breathing treatment. Patient Condition: Fair Hospital Course This is addendum for discharge summary which was done by me on 07/24/2016. Patient discharge was held secondary to knee stabilizer was not available. Patient was continued to be seen by the medical team, pulmonology and hospice clinical marketer Her glucose has been more stable and her insulin has been readjusted Patient will be discharged to senior living facility for continuation of breathing treatment and physical therapy Home Meds Active Scripts Albuterol Sulfate* (Proair HFA*) 8.5 Gm Hfa.aer.ad, 2 PUFF INH Q4, #1 INHALER Prov:MIKE LANGFORD DO 07/15/16 Reported Medications Clotrimazole-Betamethasone Diprop (Clotrimazole-Betamethasone Diprop) 15 Gm Cream.gm., 1 APPLIC TOP BID, TUB 07/15/16 Diclofenac Sodium* (Voltaren* Gel) 1% -100 Gm Gel, 2 GM TOP BID, #1 TUB 07/15/16 Hydrocodone/Acetaminophen ([place] 7.5-325 Tablet) 1 Each Tablet, 1 EACH PO BID Y for SEVERE PAIN LEVEL 7-10, TAB 07/15/16 Bumetanide* (Bumetanide*) 2 Mg Tablet, 2 MG PO BID, TAB 07/15/16 Temazepam* (Temazepam*) 30 Mg Capsule, 30 MG PO HS Y for INSOMNIA, CAP 07/15/16 Amlodipine Besylate* (Amlodipine Besylate*) 5 Mg Tablet, 5 MG PO DAILY, #30 TAB 07/15/16 Levothyroxine Sodium* (Levothyroxine Sodium*) 100 Mcg Tablet, 100 MCG PO BEFORE BREAKFAST, #30 TAB 05/08/16 Pantoprazole* (Pantoprazole*) 40 Mg Tablet.dr, 40 MG PO AC BREAKFAST, TAB 05/08/16 [place]-3 Acid Ethyl Esters (Lovaza) 1 Gm Capsule, 2 GM PO BID, CAP 05/08/16 Ipratropium-Albuterol (Ipratropium-Albuterol) 0.5-3 Mg/3 Ml Ampul.neb, 3 ML INHALATION Q4, #30 VIAL 02/07/16 Albuterol Sulfate* (Ventolin HFA*) 18 Gm Hfa.aer.ad, 2 PUFF INHALATION Q4H, #1 INHALER 02/07/16 Tramadol Hcl* (Ultram*) 50 Mg Tablet, 50 MG PO Q12 Y for PAIN, TAB 12/13/15 Sertraline Hcl* (Sertraline Hcl*) 50 Mg Tablet, 50 MG PO DAILY, #30 TAB 12/13/15 Ropinirole HCl* (Ropinirole ER*) 8 Mg Tab.er.24h, 8 MG PO QHS, TAB.SA 12/13/15 Niacin* (Niacin* ER) 1,000 Mg Tablet.sa, 1000 MG PO QHS, #30 TAB 12/13/15 Metoprolol Tartrate* (Lopressor*) 25 Mg Tab, 25 MG PO BID, #60 TAB 12/13/15 Gabapentin* (Gabapentin*) 600 Mg Tablet, 600 MG PO TID, #90 TAB 12/13/15 Fenofibrate (Triglide) 160 Mg Tablet, 160 MG PO DAILY, TAB 12/13/15 Docusate Sodium* (Doc-Q-Lace*) 100 Mg Capsule, 100 MG PO BID Y for CONSTIPATION , CAP 12/13/15 Clopidogrel Bisulfate* (Clopidogrel Bisulfate*) 75 Mg Tablet, 75 MG PO DAILY, # 30 TAB 12/13/15 Atorvastatin* (Atorvastatin*) 80 Mg Tablet, 80 MG PO QHS, #30 TAB 12/13/15 Aspirin* (Aspirin* (EC)) 81 Mg Tablet., 81 MG PO DAILY, TAB 12/13/15 Discontinued Reported Medications Fluocinonide* (Fluocinonide* Oint) 0.05%-60 Gm Oint..gm., 1 APPLIC TOP DAILY, EA 07/15/16 Mupirocin Calcium* (Mupirocin*) 2% - 15 Gram Cream..g., 1 APPLIC TOP TID, #1 TUB 07/15/16 Lidocaine (ANECREAM) 5 Gm Cream..g., 5 GM TP Q6 07/15/16 Metolazone* (Metolazone*) 5 Mg Tablet, 5 MG PO MONDAYS, TAB 07/15/16 Benzonatate* (Benzonatate*) 100 Mg Capsule, 100 MG PO TID Y for COUGH, CAP 05/08/16 Insulin Lispro (Humalog) 100 Unit/1 Ml Cartridge, 150 UNIT SQ DAILY 02/07/16 Trazodone Hcl* (Trazodone Hcl*) 100 Mg Tablet, 100 MG PO QHS, #30 TAB 02/07/16 Discontinued Scripts Prednisone* (Prednisone*) 20 Mg Tab, 60 MG PO DAILY for 5 Days, TAB Prov:MIKE LANGFORD DO 07/15/16 Azithromycin* (Zithromax*) 250 Mg Tablet, 250 MG PO .CAROLINE DIRECTED, #6 TAB TAKE 500 MG (2 TABS) THE FIRST DAY THEN 250 MG (1 TAB) DAYS 2-5 Prov:LAUREOSGÓMEZSTLETIS A. DO 07/15/16 Hydrocodone Bit-Acetaminophen* (Lortab* Liq) 7.5 Mg-325 Mg/15 Ml Solution, 15 ML PO Q4H Y for PAIN, #120 ML Prov:LAUREOSGÓMZESTLETIS A. DO 07/15/16 Pending Labs Laboratory Tests Test 07/25/16 17:17 07/25/16 21:32 07/26/16 07:48 07/26/16 12:04 Bedside Glucose 181mg/dL (70-220) 172mg/dL (70-220) 207mg/dL (70-220) 218mg/dL (70-220) FLOYD FONTANA MD Jul 26, 2016 14:15
--- NOTE | 2016-07-26 14:37 | CONS ---
Date/Time of Note Date/Time of Note DATE: 07/26/16 TIME: 14:31 Assessment/Plan Assessment/Plan Additional Assessment/Plan Lower extremity fracture CAD with history of stent in 2012 Preserved ejection fraction Hypertension Obesity -Blood pressure trend appears stable. No new cardiac orders at the current time. Consultation Date/Type/Reason Admit Date/Time Jul 21, 2016 at 14:28 Initial Consult Date 07/21/16 Type of Consultation: cv Referring Provider: CLEMENT STEVENSON TRANSPORTATION REFRIGERATION TECHNICIAN 24 HR Interval Summary Free Text/Dictation denies cp, sob Exam/Review of Systems Vital Signs Vitals Vital Signs Date Time Temp Pulse Resp B/P Pulse Ox O2 Delivery O2 Flow Rate FiO2 07/26/16 13:39 71 18 95 Nasal Cannula 3.0 07/26/16 12:01 99.1 118/56 07/25/16 07:31 30 Intake and Output 07/25/16 07/25/16 07/26/16 15:00 23:00 07:00 Intake Total 1230 ml Output Total 1800 ml Balance -570 ml Exam nad Constitutional: alert, obese, oriented Head: normocephalic Neck: supple Respiratory: other (course bs, no wheeze) Cardiovascular: other (s1s2), regular rate and rhythm Gastrointestinal: bowel sounds, non-tender, soft Extremities: edema Results Result Diagram: 07/25/16 0710 07/25/16 0710 Results 24 hrs Laboratory Tests Test 07/25/16 17:17 07/25/16 21:32 07/26/16 07:48 07/26/16 12:04 Bedside Glucose 181 172 207 218 Medications Medications Current Medications Ondansetron HCl (Zofran Inj) 4 mg Q6H PRN IV NAUSEA AND/OR VOMITING Last administered on 07/21/16 14:19; Admin Dose 4 MG; Start 07/21/16 at 13:00 Acetaminophen (Tylenol Tab) 650 mg Q6H PRN PO PAIN LEVEL 1-3 OR FEVER; Start at 13:00 Acetaminophen/ Hydrocodone Bitart ([place] (5/325)) 2 tab Q6H PRN PO SEVERE PAIN LEVEL 7-10 Last administered on 07/25/16 23:05; Admin Dose 2 TAB; Start at 13:00 Hydromorphone HCl (Dilaudid) 0.5 mg Q4H PRN IV SEVERE PAIN LEVEL 7-10 Last administered on 07/25/16 20:53; Admin Dose 0.5 MG; Start 07/21/16 at 13:00 Magnesium Hydroxide (Milk Of Mag) 30 ml DAILY PRN PO CONSTIPATION Last administered on 07/26/16 08:56; Admin Dose 30 ML; Start 07/21/16 at 13:00 Bisacodyl (Dulcolax) 5 mg DAILY PRN PO CONSTIPATION Last administered on 09:40; Admin Dose 5 MG; Start 07/21/16 at 13:00 Famotidine (Pepcid) 20 mg Q24H PO Last administered on 07/25/16 20:51; Admin Dose 20 MG; Start 07/21/16 at 21:00 Aspirin (Halfprin) 81 mg DAILY PO Last administered on 07/26/16 08:54; Admin Dose 81 MG; Start 07/22/16 at 09:00 Atorvastatin Calcium (Lipitor) 80 mg QHS PO Last administered on 07/25/16 20: 51; Admin Dose 80 MG; Start 07/21/16 at 21:00 Benzonatate (Tessalon) 100 mg TID PRN PO COUGH Last administered on 07/23/16 09:41; Admin Dose 100 MG; Start 07/21/16 at 13:30 Clopidogrel Bisulfate (plaVIX) 75 mg DAILY PO Last administered on 07/26/16 08 :54; Admin Dose 75 MG; Start 07/22/16 at 09:00 Gabapentin (Neurontin) 600 mg TID PO Last administered on 07/26/16 12:36; Admin Dose 600 MG; Start 07/21/16 at 21:00 Sertraline HCl (Zoloft) 50 mg DAILY PO Last administered on 07/26/16 08:54; Admin Dose 50 MG; Start 07/22/16 at 09:00 Trazodone HCl (Desyrel) 100 mg QHS PO Last administered on 07/25/16 20:51; Admin Dose 100 MG; Start 07/21/16 at 21:00 Bumetanide (Bumex) 2 mg BID@,18 PO Last administered on 07/26/16 06:54; Admin Dose 2 MG; Start 07/21/16 at 17:00 Fenofibrate 145 mg 145 mg DAILY PO Last administered on 07/25/16 08:44; Admin Dose 145 MG; Start 07/22/16 at 09:00 Levofloxacin/ Dextrose (Levaquin 750 Mg/ D5W 150 ml (Pmx)) 150 ml @ 100 mls/hr Q48H IVPB Last administered on 07/25/16 14:45; Admin Dose 100 MLS/HR; Start at 14:00 Miscellaneous Information 1 ea NOTE XX ; Start 07/21/16 at 14:30 Glucose (Glutose) 15 gm Q15M PRN PO DECREASED GLUCOSE; Start 07/21/16 at 14:30 Glucose (Glutose) 22.5 gm Q15M PRN PO DECREASED GLUCOSE; Start 07/21/16 at 14: 30 Dextrose (D50w Syringe) 25 ml Q15M PRN IV DECREASED GLUCOSE; Start 07/21/16 at 14:30 Dextrose (D50w Syringe) 50 ml Q15M PRN IV DECREASED GLUCOSE; Start 07/21/16 at 14:30 Glucagon (Glucagen) 1 mg Q15M PRN IM DECREASED GLUCOSE; Start 07/21/16 at 14:30 Glucose (Glutose) 15 gm Q15M PRN BUCCAL DECREASED GLUCOSE; Start 07/21/16 at 14 :30 Fish Oil (Fish Oil) 2,000 mg BID PO Last administered on 07/26/16 08:55; Admin Dose 2,000 MG; Start 07/22/16 at 21:00 Liothyronine Sodium (Cytomel) 5 mcg BID PO Last administered on 07/26/16 08:53 ; Admin Dose 5 MCG; Start 07/22/16 at 21:00; Stop 07/27/16 at 20:59 Metoprolol Tartrate (Lopressor) 50 mg BID PO Last administered on 07/26/16 08: 56; Admin Dose 50 MG; Start 07/23/16 at 21:00 Amlodipine Besylate (Norvasc) 2.5 mg DAILY PO Last administered on 07/26/16 08 :55; Admin Dose 2.5 MG; Start 07/25/16 at 09:00 Insulin Glargine (Lantus) 50 unit BID@08,20 SC Last administered on 07/26/16 08:46; Admin Dose 50 UNIT; Start 07/24/16 at 20:00 Enoxaparin Sodium (Lovenox) 30 mg DAILY SC Last administered on 07/26/16 08:58 ; Admin Dose 30 MG; Start 07/25/16 at 09:00 Linagliptin (Tradjenta) 5 mg DAILY PO Last administered on 07/26/16 08:54; Admin Dose 5 MG; Start 07/25/16 at 11:00 Obed Chavez DO Jul 26, 2016 14:37
--- NOTE | 2016-07-26 15:42 | CONS ---
Date/Time of Note Date/Time of Note DATE: 07/26/16 TIME: 15:40 Assessment/Plan Assessment/Plan Problems: (1) Type 2 diabetes mellitus with hyperglycemia Status: Chronic Comment: Doing fair on current insulin doses. Increase novolog from 45 to 50 qac and cont. lantus 50 q12. Reeval tomorrow. Qualifiers: Diabetes mellitus exterminator helper insulin use: with exterminator helper use Qualified Code : E11.65 - Type 2 diabetes mellitus with hyperglycemia, with long-term current use of insulin Consultation Date/Type/Reason Admit Date/Time Jul 21, 2016 at 14:28 Initial Consult Date 07/21/16 Type of Consultation: Endocrinology Reason for Consultation [id number] Referring Provider: CLEMENT STEVENSON LOADER DEMOLDER 24 HR Interval Summary Constitutional: improved, no complaints Detailed Summary Respiratory: no complaints Cardiovascular: no complaints Gastrointestinal: no complaints Genitourinary: no complaints Musculoskeletal: bone/joint pain (RLE reduced vs. yesterday) Neurologic: no complaints Exam/Review of Systems Vital Signs Vitals VS - Last 72 Hours, by Label Date Time Temp Pulse Resp B/P Pulse Ox O2 Delivery O2 Flow Rate FiO2 07/26/16 13:39 71 18 95 Nasal Cannula 3.0 07/26/16 12:34 72 07/26/16 12:01 99.1 70 18 118/56 97 07/26/16 08:23 78 18 99 Nasal Cannula 3.0 07/26/16 08:23 72 07/26/16 08:23 98 3.0 07/26/16 08:00 Nasal Cannula 3.0 07/26/16 07:52 98.7 68 17 113/55 99 07/26/16 04:39 98.6 69 22 123/59 98 07/26/16 04:17 3.0 07/26/16 04:16 66 07/26/16 00:09 65 07/25/16 23:59 3.0 07/25/16 20:17 68 20 94 Nasal Cannula 3.0 07/25/16 20:16 Nasal Cannula 3.0 07/25/16 20:12 72 07/25/16 20:00 99.2 75 16 128/56 95 Nasal Cannula 3.0 07/25/16 16:45 68 07/25/16 16:10 98.5 68 18 113/56 95 07/25/16 12:43 99.0 69 18 121/57 95 07/25/16 12:30 64 18 96 Nasal Cannula 3.0 07/25/16 12:29 96 3.0 07/25/16 12:16 68 07/25/16 08:31 99.0 76 18 131/58 97 07/25/16 08:19 71 07/25/16 08:00 Nasal Cannula 3.0 07/25/16 07:31 68 18 95 30 07/25/16 05:10 78 98 30 07/25/16 04:10 66 07/25/16 04:00 99.0 71 18 131/61 98 CPAP 07/25/16 03:13 80 98 30 07/25/16 01:17 75 99 30 07/25/16 00:06 63 07/24/16 23:56 97.9 58 18 104/53 96 Nasal Cannula 3.0 07/24/16 23:50 70 98 30 07/24/16 22:55 3.0 07/24/16 21:26 80 20 98 Nasal Cannula 3.0 32 07/24/16 20:09 75 07/24/16 20:08 98.1 75 17 136/74 97 07/24/16 20:00 Nasal Cannula 3.0 07/24/16 17:20 3.0 07/24/16 16:42 65 07/24/16 16:02 98.6 67 18 129/56 96 07/24/16 13:52 64 18 Nasal Cannula 3.0 07/24/16 12:15 69 07/24/16 12:12 97.9 76 17 106/54 96 07/24/16 08:25 3.0 07/24/16 08:25 74 22 96 Nasal Cannula 3.0 07/24/16 08:19 70 07/24/16 08:15 97.9 70 18 132/60 99 07/24/16 08:00 Nasal Cannula 3.0 07/24/16 04:22 97.8 69 16 147/64 94 07/24/16 04:17 74 07/24/16 03:10 68 96 30 07/24/16 01:23 64 96 30 07/24/16 01:00 3.0 07/24/16 00:13 60 07/24/16 00:00 98.6 72 17 128/56 95 07/23/16 20:30 74 07/23/16 20:02 73 20 96 Nasal Cannula 3.0 07/23/16 20:02 3.0 07/23/16 20:00 Nasal Cannula 3.0 07/23/16 20:00 98.2 76 18 129/59 94 07/23/16 16:26 67 Vital Signs Date Time Temp Pulse Resp B/P Pulse Ox O2 Delivery O2 Flow Rate FiO2 07/26/16 13:39 71 18 95 Nasal Cannula 3.0 07/26/16 12:01 99.1 118/56 07/25/16 07:31 30 Intake and Output 07/25/16 07/25/16 07/26/16 14:59 22:59 06:59 Intake Total 1230 ml Output Total 1800 ml Balance -570 ml Exam Constitutional: alert, obese, oriented Psych: nl mood/affect, no complaints Respiratory: clear to auscultation, normal air movement Cardiovascular: nl pulses, regular rate and rhythm, No edema, No murmurs/extra sounds, No rub Gastrointestinal: bowel sounds, nl liver, spleen, non-tender, soft, No mass, No rebound or guarding Musculoskeletal: nl extremities to inspection Extremities: normal pulses, No clubbing, No cyanosis, No edema Neurological: ENVIRONMENTAL AID II-XII intact, nl mental status, nl speech, nl strength Additional Comments Bedside Glucose - 72 Hours Test 07/23/16 17:28 07/23/16 21:36 07/24/16 01:55 07/24/16 07:32 Bedside Glucose 210mg/dL (70-220) 205mg/dL (70-220) 207mg/dL (70-220) 297mg/dL (70-220) H Test 07/24/16 11:59 07/24/16 16:58 07/24/16 20:07 07/25/16 02:04 Bedside Glucose 273mg/dL (70-220) H 146mg/dL (70-220) 186mg/dL (70-220) 198mg/dL (70-220) Test 07/25/16 07:47 07/25/16 12:19 07/25/16 17:17 07/25/16 21:32 Bedside Glucose 272mg/dL (70-220) H 259mg/dL (70-220) H 181mg/dL (70-220) 172mg/dL (70-220) Test 07/26/16 07:48 07/26/16 12:04 Bedside Glucose 207mg/dL (70-220) 218mg/dL (70-220) Results Result Diagram: 07/25/16 0710 07/25/16 0710 Results 24 hrs Laboratory Tests Test 07/25/16 17:17 07/25/16 21:32 07/26/16 07:48 07/26/16 12:04 Bedside Glucose 181 172 207 218 Medications Medications Current Medications Ondansetron HCl (Zofran Inj) 4 mg Q6H PRN IV NAUSEA AND/OR VOMITING Last administered on 07/21/16 14:19; Admin Dose 4 MG; Start 07/21/16 at 13:00 Acetaminophen (Tylenol Tab) 650 mg Q6H PRN PO PAIN LEVEL 1-3 OR FEVER; Start at 13:00 Acetaminophen/ Hydrocodone Bitart ([place] (5/325)) 2 tab Q6H PRN PO SEVERE PAIN LEVEL 7-10 Last administered on 07/25/16 23:05; Admin Dose 2 TAB; Start at 13:00 Hydromorphone HCl (Dilaudid) 0.5 mg Q4H PRN IV SEVERE PAIN LEVEL 7-10 Last administered on 07/25/16 20:53; Admin Dose 0.5 MG; Start 07/21/16 at 13:00 Magnesium Hydroxide (Milk Of Mag) 30 ml DAILY PRN PO CONSTIPATION Last administered on 07/26/16 08:56; Admin Dose 30 ML; Start 07/21/16 at 13:00 Bisacodyl (Dulcolax) 5 mg DAILY PRN PO CONSTIPATION Last administered on 09:40; Admin Dose 5 MG; Start 07/21/16 at 13:00 Famotidine (Pepcid) 20 mg Q24H PO Last administered on 07/25/16 20:51; Admin Dose 20 MG; Start 07/21/16 at 21:00 Aspirin (Halfprin) 81 mg DAILY PO Last administered on 07/26/16 08:54; Admin Dose 81 MG; Start 07/22/16 at 09:00 Atorvastatin Calcium (Lipitor) 80 mg QHS PO Last administered on 07/25/16 20: 51; Admin Dose 80 MG; Start 07/21/16 at 21:00 Benzonatate (Tessalon) 100 mg TID PRN PO COUGH Last administered on 07/23/16 09:41; Admin Dose 100 MG; Start 07/21/16 at 13:30 Clopidogrel Bisulfate (plaVIX) 75 mg DAILY PO Last administered on 07/26/16 08 :54; Admin Dose 75 MG; Start 07/22/16 at 09:00 Gabapentin (Neurontin) 600 mg TID PO Last administered on 07/26/16 12:36; Admin Dose 600 MG; Start 07/21/16 at 21:00 Sertraline HCl (Zoloft) 50 mg DAILY PO Last administered on 07/26/16 08:54; Admin Dose 50 MG; Start 07/22/16 at 09:00 Trazodone HCl (Desyrel) 100 mg QHS PO Last administered on 07/25/16 20:51; Admin Dose 100 MG; Start 07/21/16 at 21:00 Bumetanide (Bumex) 2 mg BID@06,18 PO Last administered on 07/26/16 06:54; Admin Dose 2 MG; Start 07/21/16 at 17:00 Fenofibrate 145 mg 145 mg DAILY PO Last administered on 07/25/16 08:44; Admin Dose 145 MG; Start 07/22/16 at 09:00 Levofloxacin/ Dextrose (Levaquin 750 Mg/ D5W 150 ml (Pmx)) 150 ml @ 100 mls/hr Q48H IVPB Last administered on 07/25/16 14:45; Admin Dose 100 MLS/HR; Start at 14:00 Miscellaneous Information 1 ea NOTE XX ; Start 07/21/16 at 14:30 Glucose (Glutose) 15 gm Q15M PRN PO DECREASED GLUCOSE; Start 07/21/16 at 14:30 Glucose (Glutose) 22.5 gm Q15M PRN PO DECREASED GLUCOSE; Start 07/21/16 at 14: 30 Dextrose (D50w Syringe) 25 ml Q15M PRN IV DECREASED GLUCOSE; Start 07/21/16 at 14:30 Dextrose (D50w Syringe) 50 ml Q15M PRN IV DECREASED GLUCOSE; Start 07/21/16 at 14:30 Glucagon (Glucagen) 1 mg Q15M PRN IM DECREASED GLUCOSE; Start 07/21/16 at 14:30 Glucose (Glutose) 15 gm Q15M PRN BUCCAL DECREASED GLUCOSE; Start 07/21/16 at 14 :30 Fish Oil (Fish Oil) 2,000 mg BID PO Last administered on 07/26/16 08:55; Admin Dose 2,000 MG; Start 07/22/16 at 21:00 Liothyronine Sodium (Cytomel) 5 mcg BID PO Last administered on 07/26/16 08:53 ; Admin Dose 5 MCG; Start 07/22/16 at 21:00; Stop 07/27/16 at 20:59 Metoprolol Tartrate (Lopressor) 50 mg BID PO Last administered on 07/26/16 08: 56; Admin Dose 50 MG; Start 07/23/16 at 21:00 Amlodipine Besylate (Norvasc) 2.5 mg DAILY PO Last administered on 07/26/16 08 :55; Admin Dose 2.5 MG; Start 07/25/16 at 09:00 Insulin Glargine (Lantus) 50 unit BID@08,20 SC Last administered on 07/26/16 08:46; Admin Dose 50 UNIT; Start 07/24/16 at 20:00 Enoxaparin Sodium (Lovenox) 30 mg DAILY SC Last administered on 07/26/16 08:58 ; Admin Dose 30 MG; Start 07/25/16 at 09:00 Linagliptin (Tradjenta) 5 mg DAILY PO Last administered on 07/26/16 08:54; Admin Dose 5 MG; Start 07/25/16 at 11:00 RADHA MORENO MD Jul 26, 2016 15:42
== END 2016-07-26 16:39 | DRG 562 ==
LOC: E/R 09:04 → MS4 14:28 → E/R 15:33 → MS4 15:33
PROVIDERS: ADMIT Student in an Organized Health Care Education/Training Program; ATTEND Student in an Organized Health Care Education/Training Program
DX: S82.141A Displaced bicondylar fracture of right tibia, initial encounter for closed fracture (principal); J18.9 Pneumonia, unspecified organism; N18.4 Chronic kidney disease, stage 4 (severe); E11.65 Type 2 diabetes mellitus with hyperglycemia; N39.0 Urinary tract infection, site not specified; Z68.41 Body mass index [BMI] 40.0-44.9, adult; E78.5 Hyperlipidemia, unspecified; F32.9 Major depressive disorder, single episode, unspecified; E66.01 Morbid (severe) obesity due to excess calories; Z91.19 Patient's noncompliance with other medical treatment and regimen; Z79.4 Long term (current) use of insulin; Z96.41 Presence of insulin pump (external) (internal); G47.33 Obstructive sleep apnea (adult) (pediatric); Z95.5 Presence of coronary angioplasty implant and graft; R00.8 Other abnormalities of heart beat; E03.9 Hypothyroidism, unspecified; W19.XXXA Unspecified fall, initial encounter; I12.9 Hypertensive chronic kidney disease with stage 1 through stage 4 chronic kidney disease, or unspecified chronic kidney disease
CPT/HCPCS: 36415; 71010; 73562; 80048; 80053; 80061; 81001; 81003; 82803; 82962; 83036; 83735; 83930; 84100; 84132; 84439; 84443; 85025; 85610; 85730; 87081; 87086; 93005; 93306; 94640; 94660; 94664; 96372; 96374; 96375; J1170; J1650; J1815; J1956; J2060; J2405; J7030

== ENCOUNTER 2016-09-15 12:44 | Inpatient (IN) | payer OTHER ==
[~2016-09-15] VITALS: Ht 170.2 cm; Wt 133.2 kg
[~2016-09-15 12:44] MED LIST changes: -AZIT250T94 PO; -BENZ-5 PO; -FLUO60OI5 TOP; -HYDR15SO8 PO; -INSU100C SQ; -LIDO5CRE6 TP; -METO5TAB65 PO; -MUPI15CR9 TOP; -PRED20TA PO; -TRAZ100T15 PO
[2016-09-15 13:31] LABS: ADD SCAN DIFF NO
[2016-09-15 13:32] LABS: ABNORMAL IP MESSAGE 1; HEMATOCRIT 32.8 % (37.0-47.0); HEMOGLOBIN 10.1 g/dl (12.0-16.0); MEAN CORPUSCULAR HEMOGLOBIN 28.3 pg (29.0-33.0); MEAN CORPUSCULAR HGB CONC 30.8 g/dl (32.0-37.0); MEAN CORPUSCULAR VOLUME 91.9 fl (82.0-101.0); MEAN PLATELET VOLUME 9.5 fl (7.4-10.4); PLATELET COUNT 280 10^3/UL (140-415); RED BLOOD COUNT 3.57 10^6/ul (4.20-5.40); RED CELL DISTRIBUTION WIDTH 15.9 % (11.5-14.5); WHITE BLOOD COUNT 13.2 10^3/ul (4.8-10.8)
[2016-09-15 13:43] LABS: ALBUMIN 3.9 g/dl (3.3-4.9)
[2016-09-15 13:44] LABS: INR 1.05; PROTIME 13.7 Sec (12.2-14.2); PT RATIO 1.1
[2016-09-15 13:45] LABS: PARTIAL THROMBOPLASTIN TIME 29.5 Sec (25.0-35.0)
[2016-09-15 13:46] LABS: ALBUMIN/GLOBULIN RATIO 1.14; BILIRUBIN,INDIRECT 0.5 mg/dl (0-1.1); BILIRUBIN,TOTAL 0.5 mg/dl (0.2-1.3); CREATININE 2.12 mg/dl (0.44-1.00); TOTAL PROTEIN 7.3 g/dl (6.1-8.1)
[2016-09-15 13:47] LABS: CALCIUM 9.3 mg/dl (8.4-10.2)
[2016-09-15 13:48] LABS: ADD UMIC YES; URINE BILIRUBIN (Dip) NEGATIVE (NEGATIVE); URINE BLOOD (Dip) TRACE (NEGATIVE); URINE COLOR LT. YELLOW (YELLOW); URINE GLUCOSE (Dip) NEGATIVE (NEGATIVE); URINE KETONES (Dip) NEGATIVE (NEGATIVE); URINE LEUKOCYTE ESTERASE (Dip) 1+ (NEGATIVE); URINE NITRITE (Dip) POSITIVE (NEGATIVE); URINE TOTAL PROTEIN (Dip) 1+ (NEGATIVE); URINE UROBILINOGEN (Dip) 1.0 E.U./dL (0.1-1.0)
[2016-09-15 13:58] LABS: BACTERIA,URINE MODERATE; SQUAMOUS EPITHELIAL CELL,UR FEW; URINE RBCS 0-2 /HPF (0)
[2016-09-15 13:58] LABS: TROPONIN-I 0.066 ng/ml (0.00-0.12)
[2016-09-15 14:15] LABS: BASOPHIL # 0.1 10^3/ul (0.0-0.1); LYMPHOCYTES # 0.3 10^3/ul (0.8-2.9); MONOCYTE # 0.5 10^3/ul (0.3-0.9); NEUTROPHIL # 12.1 10^3/ul (1.6-7.5)
--- NOTE | 2016-09-15 14:50 | RADRPT ---
PROCEDURE: XR Chest. CLINICAL INDICATION: Chest pain possible sepsis TECHNIQUE: AP view of the chest was performed. COMPARISON: 03/20/2017 FINDINGS: There is a right lower lobe airspace disease with a right pleural effusion. The cardiac silhouette is enlarged. Aortic atherosclerosis is present. The right lung field is clear. 07/17. Screws are present in the right shoulder. The lung volumes are normal. There are senescent c hanges of the osseous structures pill IMPRESSION: Right lower lobe consolidation and/or atelectasis with associated pleural effusion. Enlarged cardiac silhouette and aortic atherosclerosis RPTAT: QQ .Marielle Ceron MD, MD Date Time Electronically viewed and signed by .Marielle Creon MD, on 09/15/2016 14:50 .M/
--- NOTE | 2016-09-15 14:55 | RADRPT ---
PROCEDURE: XR Ankle. CLINICAL INDICATION: Pain TECHNIQUE: AP, oblique and lateral views of the right ankle were performed. COMPARISON: None. FINDINGS: There is normal mineralization and alignment. No fracture or osseous lesion is identified. To lucenc ies are present within the navicular bone. Plantar calcaneal spur is present. No soft tissue abnormality is present. IMPRESSION: Two lucencies are present within the navicular bone. Findings may be secondary to degenerative ro ges however if there is concern for osteomyelitis, MRI of the ankle is recommended. RPTAT: QQ .Marielle Ceron MD, Date Time Electronically viewed and signed by .Marielle Ceron MD, on 09/15/2016 14:55 .M/
[2016-09-15] MEDS ORDERED: PIPER-TAZO 3.375 GM IV (PMX) 100 ML IVPB STA (14:57)
[2016-09-15] MEDS ORDERED: VANCOMYCIN 1 GM (PMX) 250 ML IVPB STA (14:57)
[2016-09-15] MEDS ORDERED: SODIUM CHLORIDE 0.9% 1L BAG IV* STA (15:03)
[2016-09-15] MEDS ORDERED: SOD CHLORIDE 0.9% 1,000 ML IV SCH (15:14)
--- NOTE | 2016-09-15 15:29 | ERA ---
ER Documentation Chief Complaint Date/Time DATE: 09/15/16 TIME: 15:24 Chief Complaint BROUGHT IN VIA EMS FROM ASSISTED LIVING DUE TO FEVER HPI This 71-year-old female presents to the emergency room after being brought in by ambulance from her assisted living due to a fever, chills and a dry cough. This patient does state that she has had her symptoms for about 3 days duration. She states that she also wanted to get her right ankle evaluated. She is states that she had a previous fracture of her tibia, and does have an ulcer on the right ankle. She denies any drainage from the ankle, and denies any chest pain but does say she has mild shortness of breath worse with coughing. ROS All systems reviewed and are negative except as per history of present illness. Medications Home Meds Active Scripts Albuterol Sulfate* (Proair HFA*) 8.5 Gm Hfa.aer.ad, 2 PUFF INH Q4, #1 INHALER Prov:MIKE LANGFORD DO 07/15/16 Reported Medications Clotrimazole-Betamethasone Diprop (Clotrimazole-Betamethasone Diprop) 15 Gm Cream.gm., 1 APPLIC TOP BID, TUB 07/15/16 Diclofenac Sodium* (Voltaren* Gel) 1% -100 Gm Gel, 2 GM TOP BID, #1 TUB 07/15/16 Hydrocodone/Acetaminophen (Addison 7.5-325 Tablet) 1 Each Tablet, 1 EACH PO BID Y for SEVERE PAIN LEVEL 7-10, TAB 07/15/16 Bumetanide* (Bumetanide*) 2 Mg Tablet, 2 MG PO BID, TAB 07/15/16 Temazepam* (Temazepam*) 30 Mg Capsule, 30 MG PO HS Y for INSOMNIA, CAP 07/15/16 Amlodipine Besylate* (Amlodipine Besylate*) 5 Mg Tablet, 5 MG PO DAILY, #30 TAB 07/15/16 Levothyroxine Sodium* (Levothyroxine Sodium*) 100 Mcg Tablet, 100 MCG PO BEFORE BREAKFAST, #30 TAB 05/08/16 Pantoprazole* (Pantoprazole*) 40 Mg Tablet.dr, 40 MG PO AC BREAKFAST, TAB 05/08/16 [place]-3 Acid Ethyl Esters (Lovaza) 1 Gm Capsule, 2 GM PO BID, CAP 11/30/16 Ipratropium-Albuterol (Ipratropium-Albuterol) 0.5-3 Mg/3 Ml Ampul.neb, 3 ML INHALATION Q4, #30 VIAL 02/07/16 Albuterol Sulfate* (Ventolin HFA*) 18 Gm Hfa.aer.ad, 2 PUFF INHALATION Q4H, #1 INHALER 02/07/16 Tramadol Hcl* (Ultram*) 50 Mg Tablet, 50 MG PO Q12 Y for PAIN, TAB 12/13/15 Sertraline Hcl* (Sertraline Hcl*) 50 Mg Tablet, 50 MG PO DAILY, #30 TAB 12/13/15 Ropinirole HCl* (Ropinirole ER*) 8 Mg Tab.er.24h, 8 MG PO QHS, TAB.SA 12/13/15 Niacin* (Niacin* ER) 1,000 Mg Tablet.sa, 1000 MG PO QHS, #30 TAB 12/13/15 Metoprolol Tartrate* (Lopressor*) 25 Mg Tab, 25 MG PO BID, #60 TAB 12/13/15 Gabapentin* (Gabapentin*) 600 Mg Tablet, 600 MG PO TID, #90 TAB 12/13/15 Fenofibrate (Triglide) 160 Mg Tablet, 160 MG PO DAILY, TAB 12/13/15 Docusate Sodium* (Doc-Q-Lace*) 100 Mg Capsule, 100 MG PO BID Y for CONSTIPATION , CAP 12/13/15 Clopidogrel Bisulfate* (Clopidogrel Bisulfate*) 75 Mg Tablet, 75 MG PO DAILY, # 30 TAB 12/13/15 Atorvastatin* (Atorvastatin*) 80 Mg Tablet, 80 MG PO QHS, #30 TAB 12/13/15 Aspirin* (Aspirin* (EC)) 81 Mg Tablet.dr, 81 MG PO DAILY, TAB 12/13/15 Allergies Allergies: Coded Allergies: lovastatin (Verified Allergy, Unknown, 05/08/16) rosuvastatin (Verified Allergy, Unknown, 05/08/16) PMhx/Soc History of Surgery: Yes Anesthesia Reaction: No Hx Neurological Disorder: No Hx Respiratory Disorders: Yes (RICARDO WITH CPAP) Hx Cardiac Disorders: Yes (CHF, CAD) Hx Psychiatric Problems: Yes (DEPRESSION) Hx Miscellaneous Medical Probl: Yes (hypothyroid, high cholesterol ) Hx Alcohol Use: No Hx Substance Use: No Hx Tobacco Use: No Smoking Status: Never smoker Physical Exam Vitals Vital Signs Date Time Temp Pulse Resp B/P Pulse Ox O2 Delivery O2 Flow Rate FiO2 09/15/16 14:45 78 18 115/95 100 Nasal Cannula 2.0 09/15/16 13:39 Nasal Cannula 2 09/15/16 12:45 100.6 80 18 145/70 98 Physical Exam INITIAL VITAL SIGNS: Reviewed by me GENERAL: The patient is well developed and appropriate for usual state of health in no apparent distress HEENT: Dry mucous membranes, pupils equal, round, and reactive to light. EOMI. There is no scleral icterus. NECK: C-spine is soft and supple, there is no meningismus. There is no cervical lymphadenopathy. LUNGS: Coarse breath sounds bilaterally HEART: Regular rate and rhythm, no murmurs, clicks, rubs or gallops. ABDOMEN: Garcia catheter in place, obese limiting exam soft, non-tender, non- distended. There are bowel sounds in all four quadrants. No rebound or guarding. EXTREMITIES: There is no peripheral cyanosis or edema. No focal swelling or erythema. NEUROLOGICAL: The patient moves all four extremities with 5/5 strength. Cranial nerves II - XII are intact. Normal gait. Alert and oriented SKIN: 1.5 x 1 cm ulcer on the right lateral malleolus, no surrounding area of cellulitis there is no apparent rash or petechiae. HEME/LYMPHATIC: There is no evidence of excessive bruising or lymphedema. PSYCHIATRIC: The patient does not appear anxious or depressed. Result Diagram: 09/15/16 1308 09/15/16 1308 Results 24 hrs Laboratory Tests Test 09/15/16 13:08 09/15/16 13:10 White Blood Count 13.210^3/ul Red Blood Count 3.5710^6/ul Hemoglobin 10.1g/dl Hematocrit 32.8% Mean Corpuscular Volume 91.9fl Mean Corpuscular Hemoglobin 28.3pg Mean Corpuscular Hemoglobin Concent 30.8g/dl Red Cell Distribution Width 15.9% Platelet Count 42900^3/UL Mean Platelet Volume 9.5fl Neutrophils % 92.0% Lymphocytes % 2.0% Monocytes % 4.0% Basophils % 1.0% Metamyelocytes % 1.0% Neutrophils # 12.110^3/ul Lymphocytes # 0.310^3/ul Monocytes # 0.510^3/ul Basophils # 0.110^3/ul Metamyelocytes # 0.1 Differential Comment MANUAL DIFF Prothrombin Time 13.7Sec Prothrombin Time Ratio 1.1 INR International Normalized Ratio 1.05 Activated Partial Thromboplast Time 29.5Sec Sodium Level 141mmol/L Potassium Level 4.0mmol/L Chloride Level 99mmol/L Carbon Dioxide Level 29mmol/L Anion Gap 17 Blood Urea Nitrogen 39mg/dl Creatinine 2.12mg/dl Glucose Level 183mg/dl Lactic Acid Level 1.1mmol/L Calcium Level 9.3mg/dl Total Bilirubin 0.5mg/dl Direct Bilirubin 0.00mg/dl Indirect Bilirubin 0.5mg/dl Aspartate Amino Transf (AST/SGOT) 29IU/L Alanine Aminotransferase (ALT/SGPT) 20IU/L Alkaline Phosphatase 44IU/L Troponin I 0.066ng/ml Total Protein 7.3g/dl Albumin 3.9g/dl Globulin 3.40g/dl Albumin/Globulin Ratio 1.14 Urine Color LT. YELLOW Urine Clarity HAZY Urine pH 5.5 Urine Specific [place] 1.020 Urine Ketones NEGATIVE Urine Nitrite POSITIVE Urine Bilirubin NEGATIVE Urine Urobilinogen 1.0 E.U./dL Urine Leukocyte Esterase 1+ Urine Microscopic RBC 0-2/HPF Urine WBC Clumps MODERATE Urine Microscopic WBC 25-50/HPF Urine Squamous Epithelial Cells FEW Urine Bacteria MODERATE Urine Other OCCASIONAL Urine Hemoglobin TRACE Urine Glucose NEGATIVE% Urine Total Protein 1+ Current Medications Medications (Trade) Dose Ordered Sig/Bucky Route PRN Reason Start Time Stop Time Status Last Admin Dose Admin Vancomycin HCl 250 ml @ 125 mls/hr ONCE STAT IVPB 09/15/16 14:57 09/15/16 16:56 Piperacillin Sod/ Tazobactam Sod (Zosyn 3.375gm/ 100 ml (Pmx)) 100 ml @ 200 mls/hr ONCE STAT IVPB 09/15/16 14:57 09/15/16 15:26 09/15/16 15:19 Sodium Chloride 2500 ml 2,500 ml BOLUS OVER 2 HOURS STAT IV* 09/15/16 15:03 09/15/16 15:04 DC 09/15/16 15:19 Sodium Chloride (NS) 1,000 ml @ 80 mls/hr [id number] IV 09/15/16 15:14 09/16/16 03:43 Ondansetron HCl (Zofran Inj) 4 mg BRIDGE ORDER PRN IV NAUSEA AND/OR VOMITING 09/15/16 15:30 09/16/16 15:29 Acetaminophen (Tylenol Tab) 650 mg ER BRIDGE PRN PO MILD PAIN/FEVER 09/15/16 15:30 09/16/16 15:29 Procedures/MDM EKG: Rate/Rhythm: [Normal Sinus Rhythm] QRS, ST, T-waves: [No changes consistent w/ acute ischemia] Impression: [No evidence of ischemia or arrhythmia] Chest X-ray 1V Interpreted by me: Soft Tissue: Right lower lobe pneumonia Bones: No acute abnormalities Mediastinum/Cardiac Silhouette/Lungs: [No acute abnormalities] This 71-year-old female presents to the ER for evaluation of a fever, chills and a cough. This patient was febrile on my examination with coarse breath sounds bilaterally. Did obtain lab work including an x-ray which does demonstrate a right lower lobe pneumonia. This patient has a leukocytosis and does meet sepsis criteria. The patient was not given 30 cc/kg of IV normal saline as she weighs 125 kg. The patient was started on vancomycin and cefepime. She will be placed in for admission at this time. She was subsequently found to have a urinary tract infection, however she does have a chronic indwelling Garcia catheter. Her mean arterial pressure is greater than 65 with no need for vasopressors at this time. She will be placed on the telemetry floor. Critical Care: Excluding all billable procedures Time: 38 minutes Treatments/Evaluations: Close monitoring and treatment of unstable vital signs, cardiorespiratory, and neurologic status, while maintaining tight balance of fluid, respiratory, and cardiac interventions. Departure Diagnosis: Primary Impression: Sepsis Additional Impressions: Right lower lobe pneumonia Renal insufficiency Normocytic anemia Morbid (severe) obesity due to excess calories Urge incontinence Condition: BREANN Addison DO Sep 15, 2016 15:29
[2016-09-15] MEDS ORDERED: ACETAMINOPHEN 325 MG TAB PO PRN (15:30)
[2016-09-15] MEDS ORDERED: ONDANSETRON 4 MG INJ IV PRN ×2 (15:30→16:30)
[2016-09-15] MEDS ORDERED: hydrALAzine 20 MG INJ IV PRN (16:30)
[2016-09-15] MEDS ORDERED: NACL 0.9% 3 ML SYG IV SCH (16:30)
[2016-09-15] MEDS ORDERED: HYDROCODONE/APAP (5/325) TAB PO PRN (16:30)
[2016-09-15] MEDS ORDERED: ALBUTEROL/IPRATROPIUM (NEB) 3 ML AMP HHN PRN (16:30)
[2016-09-15 16:45] VITALS: TEMP 99.5
[2016-09-15 17:04] LABS: CHOL/HDL RATIO 4.3 RATIO
--- NOTE | 2016-09-15 17:50 | HP ---
DATE OF ADMISSION: 09/15/2016 TIME OF EVALUATION: 1600 hours. REASON FOR ADMISSION: Fevers, chills, dyspnea. CONSULTATIONS: 1. Dr. Conrad Smith, Infectious Disease. 2. Dr. Jamal Iraheta, Podiatry. 3. Endocrinology. HISTORY OF PRESENT ILLNESS: This is a 71-year-old female with past medical history of insulin-dependent diabetes mellitus on an insulin pump, CAD status post coronary artery stenting in 2012, hyperlipidemia, chronic kidney disease, obesity, hypothyroidism, depression, anxiety, and chronic indwelling Garcia catheter who is more or less a bed-bound, who was brought in from an assisted living facility because of fevers, chills and a dry cough. The patient verbalized that she has had those symptoms for 3 days, which got worse for the past 24 hours. For the past 24 hours, the patient was nauseated with dry heaves with poor oral intake. She was also feeling short of breath. The patient verbalized that the fever at the assisted living facility was 104 degrees Fahrenheit axillary. The patient recently had a right tibial plateau fracture on 07/22/2016 when she was treated conservatively with a right knee immobilizer. As per the patient, this immobilizer was removed on 08/19/2016. However, this knee immobilizer had left a wound in her right lateral street. The patient verbalized that she is being followed by wound management team for her right leg wound with minimal improvement. The patient states that she was not on any antibiotics. She verbalized severe pain over this wound. In the emergency room, the patient was noticed to have leukocytosis with a neutrophil count of 92%. She did not have any evidence of lactic acidosis. She had a temperature of 100.6 degrees Fahrenheit. The patient underwent a chest x-ray that showed right lower lobe consolidation or atelectasis with associated pleural effusion. The patient's urinalysis showed a positive nitrite and positive leukocyte esterase with urine microscopic WBC of 25 to 50. The patient also underwent a right ankle x-ray that showed 2 lucencies present within the navicular bone, but the findings may be secondary to degenerative changes. However, there was a concern for osteomyelitis, MRI of the ankle was recommended by the radiologist. The patient was treated with IV Zosyn and a bolus of IV fluids in the emergency room. PAST MEDICAL HISTORY: Type 1 diabetes mellitus dependent on insulin pump, CAD, dyslipidemia, chronic kidney disease, obesity, depression, anxiety, hypothyroidism, obstructive sleep apnea, chronic indwelling Garcia catheter. PAST SURGICAL HISTORY: Cholecystectomy, total abdominal hysterectomy, left total knee arthroplasty, right hip ORIF, lumbar laminectomy x3. HOME MEDICATIONS: 1. ProAir HFA 2 puffs inhaled q.4 hours p.r.n. dyspnea. 2. Plavix 75 mg p.o. daily. 3. Amlodipine 5 mg p.o. daily. 4. Atorvastatin 80 mg p.o. at bedtime. 5. Fenofibrate 160 mg p.o. daily. 6. Lopressor 25 mg p.o. b.i.d. 7. Niacin 1000 mg p.o. at bedtime. 8. Lovaza 2 gram p.o. b.i.d. 9. Aspirin 81 mg p.o. daily. 10. Gabapentin 600 mg p.o. b.i.d. 11. Ropinirole 8 mg p.o. at bedtime. 12. Sertraline 50 mg p.o. daily. 13. Temazepam 30 mg p.o. at bedtime p.r.n. insomnia. 14. Trazodone 100 mg p.o. at bedtime. 15. Bumex 2 mg p.o. b.i.d. 16. Metolazone 25 mg p.o. on Mondays. 17. Protonix 40 mg p.o. before breakfast. 18. Humalog insulin 150 units subcutaneously daily (insulin pump). ALLERGIES: 1. LOVASTATIN. 2. ROSUVASTATIN. SOCIAL HISTORY: The patient lives in an assisted living facility. No recent history of tobacco, alcohol or illicit drug use. REVIEW OF SYSTEMS: A 12-point review of systems and remainder of review of systems are negative other than what is mentioned in history of present illness. PHYSICAL EXAMINATION: GENERAL: This is a morbidly obese female lying in bed in no apparent distress. HEENT: Head normocephalic and atraumatic. Eyes: Anicteric sclerae. Conjunctivae clear. ENT: Nasal septum is midline. Oral mucosa is dry. NECK: Short and obese. Cushingoid features. RESPIRATORY: Bilaterally diminished breath sounds. No adventitious breath sounds. No use of accessory muscles of respiration. CARDIAC: Regular rate and rhythm. Unable to appreciate any murmurs. ABDOMEN: Obese, soft. Nondistended. Bowel sounds positive in all 4 quadrants. GENITOURINARY: The patient has a Garcia catheter in place. EXTREMITIES: Surgical scar on the lateral aspect of the right femur. Left knee surgical scar on the anterior aspect. Bilateral 1+ pedal edema. Peripheral pulses are diminished in the lower extremities. Right foot wound on the lateral aspect towards the distal end of the fibula with surrounding erythema with the wound bed having a scar. The area is tender to touch. NEUROLOGIC: The patient is awake, alert and oriented. Cranial nerves are grossly intact. LABORATORY AND DIAGNOSTIC DATA: WBC 13.2, hemoglobin 10.1, hematocrit 32.8, platelet count 218, neutrophils 92%. Sodium 141, potassium 4.0, chloride 19, carbon dioxide 20, anion gap 17, BUN 39, creatinine 2.12, glucose 183, calcium 9.3, total bilirubin 0.5, indirect bilirubin 0.5, AST 29, ALT 20, alkaline phosphatase 44. Troponin 0.066. Total protein 7.3, albumin 3.9. PT 13.7, INR 1.05, PTT 29.5. Urinalysis: Urine nitrite positive, urine leukocyte esterase 1+, urine microscopic WBC 25 to 50, urine total protein 1+. Influenza A and B negative. Chest x-ray: Right lower lobe consolidation and/or atelectasis with associated pleural effusion. 12-lead EKG: Normal sinus rhythm. IMPRESSION: This is a 71-year-old female with multiple comorbidities who was brought to the emergency room from an assisted living facility because of febrile illness, was found to have evidence of sepsis and will be admitted here for further treatment and evaluation. ASSESSMENT AND PLAN: 1. Sepsis with no evidence of septic shock, most probably secondary to underlying healthcare-associated pneumonia and urinary tract infection. The patient will be started on empiric antibiotics. The patient will be provided with IV fluids, however, caution will be advised to avoid giving too much IV fluids for this patient because the patient has chronic kidney disease and history of coronary artery disease. An infectious disease consult will be obtained on this patient. The patient's influenza A and B screening are negative. 2. Healthcare-associated pneumonia. The patient will be treated appropriately using antibiotics. Infectious disease consult will be obtained. 3. Urinary tract infection. Urine cultures will be sent. The patient has positive urine leukocyte esterase, and positive nitrite in urine. The patient also has WBC of 25 to 50. The patient has a chronic indwelling Garcia catheter. 4. Right leg nonhealing wound. As mentioned in the history of present illness , this wound was caused by an immobilizer that was used recently for a right tibial plateau fracture. This wound has been nonhealing. The patient's right ankle x-ray showing 2 lucencies present within the navicular bone with concern for osteomyelitis. A podiatry consult will be obtained. The patient will be provided with local wound care. 5. Type 1 diabetes mellitus on an insulin pump. The patient will be allowed to use the insulin pump. An endocrinology consult will be obtained to manage the insulin pump. 6. Dyslipidemia. The patient's antilipidemic medications will be resumed. 7. Coronary artery disease, status post stenting in 2012. The patient had cardiac stent x2 placed at [facility] in 2012. The patient is currently on aspirin and Plavix. These will be continued. 8. Depression. The patient's antidepressants will be resumed. 9. Anxiety. The patient anxiolytics will be resumed. 10. Hypothyroidism. The patient's Synthroid will be resumed. 11. Morbid obesity. Weight reduction will be advised. 12. Chronic kidney disease. The patient has history of chronic kidney disease. Nephrotoxic drugs will be used with caution. Plan. The patient will be admitted to inpatient telemetry floor. The patient will be started on a carbohydrate controlled low cholesterol diet. The patient will be started on DVT prophylaxis and gastrointestinal prophylaxis. The patient will remain a full code. Activities will be with assist. The rest of the patient's management will be based on the clinical course, the results of diagnostic studies, and inputs from consultants. Based on the patient's clinical presentation, she most probably requires at least 2 midnights' stay for further management and evaluation of her clinical presentation. The case and management of this patient was fully discussed with Dr. Arora. CLEMENT ARORA MD, AM/RO Conf#: [id number] DID#: [id number] CC: BREANN UGARTE DO;*EndCC* MTDD
[2016-09-15] MEDS ORDERED: DEXTROSE 50% 50 ML SYRINGE IV PRN ×2 (18:00)
[2016-09-15] MEDS ORDERED: GLUCOSE GEL 15 GRAM TUBE PO PRN ×2 (18:00)
[2016-09-15] MEDS ORDERED: GLUCOSE GEL 15 GRAM TUBE BUCCAL PRN (18:00)
[2016-09-15] MEDS ORDERED: GLUCAGON 1 MG INJ IM PRN (18:00)
--- NOTE | 2016-09-15 18:07 | CONS ---
DATE OF ADMISSION: 09/15/2016 DATE OF CONSULTATION: 09/15/2016 TYPE OF CONSULTATION: Infectious disease. REASON FOR CONSULTATION: Antibiotic management. HISTORY OF PRESENT ILLNESS: The patient is a 71-year-old female brought into the emergency room fro m assisted living secondary to fevers, chills, and a dry cough. She had her symptoms of 3 days' dur ation. She also wanted her right ankle evaluated. She had a previous fracture of her tibia and has an ulcer on the right side. She denies any drainage from the ankle. Denies any chest pain, but urbano s some shortness of breath. She has a history of congestive heart failure, coronary artery disease, depression, hypothyroidism, and hypercholesterolemia. PAST MEDICAL HISTORY: Operations as outlined. FAMILY HISTORY: Noncontributory. SOCIAL HISTORY: She does not smoke, drink, or abuse drugs. ALLERGIES: NONE TO PENICILLIN, SULFA, OR FOODS. MEDICATIONS: Per chart. REVIEW OF SYSTEMS: As per HPI. PHYSICAL EXAMINATION: GENERAL: The patient is an elderly appearing female who is alert, responsive, in no acute distress. VITAL SIGNS: T-max 100.6. SKIN: Without generalized rash. HEENT: Within normal limits. NECK: Supple. LYMPH NODES: None palpable. CHEST: Decreased breath sounds at the bases. HEART: Without murmur or gallop. ABDOMEN: Soft, nontender without organosplenomegaly or masses. EXTREMITIES: Without cyanosis, clubbing, or edema. RECTAL AND GENITAL: Deferred. NEUROLOGIC: No focal neurological abnormalities. EXTREMITIES: She has a 1.5 x 1 cm ulcer on the right lateral malleolus without surrounding cellulit is. ANCILLARY LABORATORY DATA: White count 13.2, H and H of 10.1 and 32.8, platelet count 280,000. BUN and creatinine 39/2.12. Chest x-ray shows right lower lobe consolidation and atelectasis with asso ciated pleural effusion, enlarged cardiac silhouette, and aortic atherosclerosis. IMPRESSION AND PLAN: The patient was started on vancomycin and Zosyn. We will continue her on this regimen. I will dictate my findings to the hospitalists. We will await the culture reports. Dictated By: JOSE DESAI MD, JD/RO Conf#: [id number] DID#: [id number]
[2016-09-15 18:23] VITALS: PULSE 66
[2016-09-15 18:46] VITALS: BP 139/62; PULSE 69; RESP 19
[2016-09-15 19:04] VITALS: Ht 170.2 cm; Wt 133.2 kg
[2016-09-15 20:00] VITALS: BP 181/81; RESP 20
[2016-09-15 20:24] VITALS: PULSE 65
[2016-09-15] MEDS: PT'S OWN INSULIN PUMP (Humalog) SC SCH (21:00)
[2016-09-15] MEDS: NIACIN (ER) 500 MG TAB PO SCH (21:00)
[2016-09-15] MEDS ORDERED: FAMOTIDINE 20 MG INJ IV SCH (21:00)
[2016-09-15] MEDS: GABAPENTIN 100 MG CAP PO SCH (21:35)
[2016-09-15] MEDS: ATORVASTATIN 80 MG TAB PO SCH (21:35)
[2016-09-15] MEDS: METOPROLOL 25 MG TAB PO SCH (21:36)
[2016-09-15] MEDS: FISH OIL 1,000 MG CAP PO SCH (21:36)
[2016-09-15] MEDS: ALBUTEROL/IPRATROPIUM (NEB) 3 ML AMP HHN SCH (21:41)
[2016-09-15] MEDS: HEPARIN 5,000 UNIT/0.5 ML VIAL SC SCH (21:42)
[2016-09-15] MEDS: PIPER-TAZO 2.25 GM (PMX) 50 ML IVPB SCH (21:45)
[2016-09-15 23:15] VITALS: PULSE 68
[2016-09-15] MEDS: morphine 2 MG INJ IV PRN (23:49)
[2016-09-16] VITALS (15 sets, daily range): BP systolic 108–128; BP diastolic 51–61; PULSE 59–75; RESP 15–19
[2016-09-16] MEDS: BUMETANIDE 1 MG TAB PO SCH ×3 (00:11→22:22)
[2016-09-16] MEDS: ZOLPIDEM 5 MG TAB PO PRN ×2 (00:11→22:21)
[2016-09-16] MEDS: ACETAMINOPHEN 325 MG TAB PO PRN (04:14)
[2016-09-16] MEDS: PIPER-TAZO 2.25 GM (PMX) 50 ML IVPB SCH ×3 (05:17→22:53)
[2016-09-16] MEDS ORDERED: PENDING SANTYL ORDER FOR WOUND CARE XX PRN (06:30)
[2016-09-16] MEDS: PT'S OWN INSULIN PUMP (Humalog) SC SCH ×4 (07:25→21:00)
[2016-09-16] MEDS: PANTOPRAZOLE (EC) 40 MG TAB PO SCH (07:31)
[2016-09-16] MEDS: LEVOTHYROXINE 100 MCG TAB PO SCH (07:31)
[2016-09-16] MEDS: ALBUTEROL/IPRATROPIUM (NEB) 3 ML AMP HHN SCH ×3 (07:34→19:57)
[2016-09-16 08:06] LABS: ADD SCAN DIFF NO
[2016-09-16 08:21] LABS: BASOPHILS % 0.3 % (0.0-2.0); EOSINOPHILS % 0.4 % (0.0-7.0); HEMATOCRIT 28.9 % (37.0-47.0); HEMOGLOBIN 8.4 g/dl (12.0-16.0); LYMPHOCYTES # 1.2 10^3/ul (0.8-2.9); LYMPHOCYTES % 12.3 % (15.0-51.0); MEAN CORPUSCULAR HEMOGLOBIN 27.4 pg (29.0-33.0); MEAN CORPUSCULAR HGB CONC 29.1 g/dl (32.0-37.0); MEAN CORPUSCULAR VOLUME 94.1 fl (82.0-101.0); MEAN PLATELET VOLUME 9.6 fl (7.4-10.4); MONOCYTE # 1.2 10^3/ul (0.3-0.9); MONOCYTES % 12.1 % (0.0-11.0); NEUTROPHIL # 7.1 10^3/ul (1.6-7.5); NEUTROPHILS % 74.6 % (39.0-77.0); PLATELET COUNT 231 10^3/UL (140-415); RED BLOOD COUNT 3.07 10^6/ul (4.20-5.40); RED CELL DISTRIBUTION WIDTH 16.2 % (11.5-14.5); WHITE BLOOD COUNT 9.5 10^3/ul (4.8-10.8)
[2016-09-16 08:24] LABS: ALBUMIN 3.1 g/dl (3.3-4.9); POTASSIUM 3.7 mmol/L (3.5-5.1)
[2016-09-16] MEDS: [UNRECOGNIZED DRUG - REMARK] XX SCH ×4 (08:24→17:16)
[2016-09-16] MEDS: CLOPIDOGREL 75 MG TAB PO SCH (08:25)
[2016-09-16] MEDS: FENOFIBRATE 145 MG TAB PO SCH (08:25)
[2016-09-16] MEDS: GABAPENTIN 100 MG CAP PO SCH ×3 (08:25→22:21)
[2016-09-16] MEDS: METOPROLOL 25 MG TAB PO SCH ×2 (08:25→22:21)
[2016-09-16] MEDS: SERTRALINE 50 MG TAB PO SCH (08:25)
[2016-09-16] MEDS: FISH OIL 1,000 MG CAP PO SCH ×2 (08:25→22:21)
[2016-09-16] MEDS: CHOLECALCIFEROL 1,000 UNIT TAB PO SCH (08:25)
[2016-09-16] MEDS: ASPIRIN (EC) 81 MG TAB PO SCH (08:25)
[2016-09-16 08:26] LABS: BILIRUBIN,INDIRECT 0.4 mg/dl (0-1.1); BILIRUBIN,TOTAL 0.4 mg/dl (0.2-1.3); CREATININE 2.14 mg/dl (0.44-1.00)
[2016-09-16] MEDS: AMLODIPINE 5 MG TAB PO SCH (08:26)
[2016-09-16] MEDS: COLLAGENASE 30 GM TUBE TOP SCH (08:26)
[2016-09-16 08:27] LABS: CALCIUM 8.2 mg/dl (8.4-10.2); TOTAL PROTEIN 6.2 g/dl (6.1-8.1)
[2016-09-16 08:28] LABS: MAGNESIUM 2.2 mg/dl (1.7-2.5); PHOSPHORUS 4.2 mg/dl (2.5-4.9)
[2016-09-16] MEDS: HEPARIN 5,000 UNIT/0.5 ML VIAL SC SCH ×2 (08:28→22:40)
--- NOTE | 2016-09-16 08:46 | CONS ---
DATE OF ADMISSION: 09/15/2016 DATE OF CONSULTATION: 09/16/2016 REASON FOR CONSULTATION: Right lateral ankle ulceration. HISTORY OF PRESENT ILLNESS: This is a 71-year-old female admitted for sepsis. The patient admitted with leukocytosis with WBC of 213.2. The patient has had increasing cough over the last 3 days. The patient also noted upon admission to have a right lateral ankle ulceration. She had been treated nonoperatively with the use of a knee immobilizer and developed pressure sores to the right lateral street as well as a contusion and to the left ankle. The patient with multiple comorbidities. PAST MEDICAL HISTORY: Diabetes type 1 on insulin, coronary artery disease, hyperlipidemia, chronic kidney disease, hypothyroidism, sleep apnea, depression and anxiety. MEDICATIONS: Include 1. ProAir HFA 2 puffs inhaled q.4h. p.r.n. dyspnea. 2. Plavix 75 mg p.o. daily. 3. Amlodipine 5 mg p.o. daily. 4. Atorvastatin 80 mg p.o. at bedtime. 5. Fenofibrate 160 mg p.o. daily. 6. Lopressor 25 mg p.o. b.i.d. 7. Niacin 1000 mg p.o. at bedtime. 9. Aspirin 81 mg daily. 10. Gabapentin 600 mg p.o. b.i.d. 11. Sertraline 50 mg p.o. daily. 12. Temazepam 30 mg p.o. at bedtime. 13. Trazodone 100 mg p.o. at bedtime. 14. Bumex 2 mg p.o. b.i.d. 15. Metolazone 25 mg p.o. on Mondays. 16. Protonix 40 mg p.o. q.a.m. 17. Humalog insulin 150 units subq daily. ALLERGIES: LOVASTATIN and ROSUVASTATIN. SOCIAL HISTORY: Patient lives at the assisted living facility. No recent tobacco, alcohol or illicit drug use. REVIEW OF SYSTEMS: As per chart records, obese. Right lateral ankle ulcer with eschar, unstageable depth. PHYSICAL EXAMINATION: EXTREMITIES: Patient is sleeping, has a BiPAP machine. No signs of acute distress. The patient with 2+1 pitting edema bilateral lower extremity. There is an ulceration on the right lateral ankle, measuring approximately 1.5 x 2 cm with eschar, appears dry. Mild erythema. No pain with palpation. No visible signs of lymphangitis. No pressure sore on the posterior aspect of bilateral heels. The patient has contusion to the left anterior ankle. The patient has a 2+ DP pulse. LABORATORIES: WBC 13.2, hemoglobin 10.1, hematocrit 32.8, platelets 280. Glucose 141. X-rays of right ankle 2 lucencies within the navicular bone, plantar calcaneal spur. Chest x-ray: Right lower lobe consolidation and atelectasis associated pleural effusions, large cardiac silhouette and aortic atherosclerosis. ASSESSMENT: 1. Sepsis. 2. Right lateral ankle nonhealing ulceration. 3. Type 1 diabetes. 4. Hypothyroidism. 5. Chronic kidney disease. PLAN: Patient seen and reviewed, photos of ulceration and radiographs obtained. Noninvasive arterial studies. Recommended initiating enzymatic debridement with Santyl and likely to require debridement of ulceration. Radiographic findings of lucencies of the navicular bone and likely incidental findings. The patient currently on vancomycin and Zosyn, and will continue to follow in house and also coordination of care. Dictated By: ROMINA ELLIS/RO Conf#: [id number] DID#: [id number] MTDD
--- NOTE | 2016-09-16 11:51 | PN ---
Date/Time of Note Date/Time of Note DATE: 09/16/16 TIME: 11:41 Assessment/Plan VTE Prophylaxis VTE Prophylaxis Intervention: other Lines/Catheters IV [facility] [place] Urinary Cath still in place: Yes Reason Cath still needed: other (indicate) Assessment/Plan Chief Complaint/Hosp Course Assessment and plan 1. Sepsis with no evidence of septic shock, most probably secondary to underlying healthcare-associated pneumonia and urinary tract infection. Continue Zosyn and vancomycin, , infectious disease doctor has been consulted . influenza A and B screening are negative. 2. Healthcare-associated pneumonia/pleural effusion. Continue IV antibiotics, follow-up chest x-ray in a.m. Infectious disease consult will be obtained. 3. Urinary tract infection. The patient has positive urine leukocyte esterase, and positive nitrite in urine. The patient also has WBC of 25 to 50. The patient has a chronic indwelling Garcia catheter. Follow-up urine culture and sensitivity 4. Right leg nonhealing wound. , this wound was caused by an immobilizer that was used recently for a right tibial plateau fracture. This wound has been nonhealing. The patient's right ankle x-ray showing 2 lucencies present within the navicular bone with concern for osteomyelitis. A podiatry consult has been obtained. The patient will be provided with local wound care. Follow-up MRI of the ankle to rule out osteomyelitis 5. Type 1 diabetes mellitus on an insulin pump. The patient will be allowed to use the insulin pump. An endocrinology consult will be obtained to manage the insulin pump. 6. Dyslipidemia. The patient's antilipidemic medications will be resumed. 7. Coronary artery disease, continue statin, aspirin and Plavix. These will be continued. 8. Depression. The patient's antidepressants will be resumed. 9. Anxiety. The patient anxiolytics will be resumed. 10. Hypothyroidism. The patient's Synthroid will be resumed. 11. Morbid obesity. Weight reduction will be advised. 12. Chronic kidney disease. The patient has history of chronic kidney disease. Nephrotoxic drugs will be used with caution. Plan. Continue wound care PT OT eval and treat Mud Jack Nozzleman input and management is appreciated Problems: Subjective 24 Hr Interval Summary Free Text/Dictation Patient denies of any chest pain or shortness of breath Minimal discomfort in right ankle Tolerating oral intake Afebrile since admission Exam/Review of Systems Vital Signs Vitals Vital Signs Date Time Temp Pulse Resp B/P Pulse Ox O2 Delivery O2 Flow Rate FiO2 09/16/16 08:19 98.4 68 18 114/54 97 09/16/16 08:00 Nasal Cannula 3.0 09/16/16 05:50 35 Intake and Output 09/15/16 09/15/16 09/16/16 15:00 23:00 07:00 Intake Total 1000 ml 1050 ml Output Total 1200 ml Balance 1000 ml -150 ml Exam General: The patient is moderately overweight, Not in acute distress. HEENT: Atraumatic, normocephalic. The pupils are equal and round . Neck: Supple with full range of motion. Chest: Normal expansion of the thorax during inspiration Lungs: Clear to auscultation bilaterally Heart: Normal S1-S2, Regular rhythm and rate. Abdomen: Soft , nontender, nondistended , bowel sounds are present. Extremities: Right ankle decubitus ulcer, no edema no cyanosis Neurologic: Normal mental status,The patient is awake, alert and oriented . Results Result Diagram: 09/16/1671909/16/16 0720 Results 24 hrs Laboratory Tests Test 09/15/16 13:08 09/15/16 13:10 09/15/16 15:11 09/15/16 15:35 White Blood Count 13.2 H Red Blood Count 3.57 L Hemoglobin 10.1 L Hematocrit 32.8 L Mean Corpuscular Volume 91.9 Mean Corpuscular Hemoglobin 28.3 L Mean Corpuscular Hemoglobin Concent 30.8 L Red Cell Distribution Width 15.9 H Platelet Count 280 Mean Platelet Volume 9.5 Neutrophils % 92.0 H Lymphocytes % 2.0 L Monocytes % 4.0 Basophils % 1.0 Metamyelocytes % 1.0 H Neutrophils # 12.1 H Lymphocytes # 0.3 L Monocytes # 0.5 Basophils # 0.1 Metamyelocytes # 0.1 Differential Comment MANUAL DIFF Prothrombin Time 13.7 Prothrombin Time Ratio 1.1 INR International Normalized Ratio 1.05 Activated Partial Thromboplast Time 29.5 Sodium Level 141 Potassium Level 4.0 Chloride Level 99 Carbon Dioxide Level 29 Anion Gap 17 H Blood Urea Nitrogen 39 H Creatinine 2.12 H Glucose Level 183 Lactic Acid Level 1.1 0.7 Calcium Level 9.3 Total Bilirubin 0.5 Direct Bilirubin 0.00 Indirect Bilirubin 0.5 Aspartate Amino Transf (AST/SGOT) 29 Alanine Aminotransferase (ALT/SGPT) 20 Alkaline Phosphatase 44 Troponin I 0.066 Total Protein 7.3 Albumin 3.9 Globulin 3.40 H Albumin/Globulin Ratio 1.14 Urine Color LT. YELLOW Urine Clarity HAZY Urine pH 5.5 Urine Specific [place] 1.020 Urine Ketones NEGATIVE Urine Nitrite POSITIVE H Urine Bilirubin NEGATIVE Urine Urobilinogen 1.0 E.U./dL Urine Leukocyte Esterase 1+ H Urine Microscopic RBC 0-2 Urine WBC Clumps MODERATE Urine Microscopic WBC 25-50 Urine Squamous Epithelial Cells FEW Urine Bacteria MODERATE Urine Other OCCASIONAL Urine Hemoglobin TRACE Urine Glucose NEGATIVE Urine Total Protein 1+ H Hemoglobin A1c 7.4 H Triglycerides Level 267 H Cholesterol Level 162 LDL Cholesterol, Calculated 72 HDL Cholesterol 37 Cholesterol/HDL Ratio 4.3 Vitamin D 1,25-Dihydroxy 17.7 L Thyroid Stimulating Hormone (TSH) 6.490 H Free Thyroxine 0.92 Test 09/15/16 17:45 09/15/16 21:27 09/16/16 04:10 09/16/16 04:42 Lactic Acid Level 0.6 Bedside Glucose 88 66 L 141 Test 09/16/16 07:20 09/16/16 07:33 White Blood Count 9.5 # Red Blood Count 3.07 L Hemoglobin 8.4 L Hematocrit 28.9 L Mean Corpuscular Volume 94.1 Mean Corpuscular Hemoglobin 27.4 L Mean Corpuscular Hemoglobin Concent 29.1 L Red Cell Distribution Width 16.2 H Platelet Count 231 Mean Platelet Volume 9.6 Neutrophils % 74.6 Lymphocytes % 12.3 L Monocytes % 12.1 H Eosinophils % 0.4 Basophils % 0.3 Nucleated Red Blood Cells % 0.0 Neutrophils # 7.1 Lymphocytes # 1.2 Monocytes # 1.2 H Eosinophils # 0.0 Basophils # 0.0 Nucleated Red Blood Cells # 0.0 Sodium Level 141 Potassium Level 3.7 Chloride Level 102 Carbon Dioxide Level 29 Anion Gap 14 Blood Urea Nitrogen 33 H Creatinine 2.14 H Glucose Level 66 #L Lactic Acid Level < 0.5 L Calcium Level 8.2 L Phosphorus Level 4.2 Magnesium Level 2.2 Total Bilirubin 0.4 Direct Bilirubin 0.00 Indirect Bilirubin 0.4 Aspartate Amino Transf (AST/SGOT) 34 Alanine Aminotransferase (ALT/SGPT) 28 Alkaline Phosphatase 33 L Total Protein 6.2 # Albumin 3.1 L Globulin 3.10 Albumin/Globulin Ratio 1.00 Bedside Glucose 67 L Medications Medications Current Medications Piperacillin Sod/ Tazobactam Sod (Zosyn 2.25gm/ 50ml (Pmx)) 50 ml @ 100 mls/hr Q8 IVPB Last administered on 09/16/16 05:17; Admin Dose 100 MLS/HR; Start 09/15 at 22:00 Ondansetron HCl (Zofran Inj) 4 mg Q6H PRN IV NAUSEA AND/OR VOMITING Last administered on 09/15/16 22:22; Admin Dose 4 MG; Start 09/15/16 at 16:30 Acetaminophen (Tylenol Tab) 650 mg Q6H PRN PO PAIN LEVEL 1-3 OR FEVER Last administered on 09/16/16 04:14; Admin Dose 650 MG; Start 09/15/16 at 16:30 Acetaminophen/ Hydrocodone Bitart ([place] (5/325)) 1 tab Q6H PRN PO MODERATE PAIN LEVEL 4-6 Last administered on 09/16/16 11:14; Admin Dose 1 TAB; Start 09/15/16 at 16:30 Morphine Sulfate (morphine) 4 mg Q4H PRN IV SEVERE PAIN LEVEL 7-10 Last administered on 09/15/16 23:49; Admin Dose 4 MG; Start 09/15/16 at 16:30 Famotidine (Pepcid Iv) 20 mg HS IV Last administered on 09/15/16 21:41; Admin Dose 20 MG; Start 09/15/16 at 21:00 Heparin Sodium (Porcine) (Heparin (5000 Units/0.5 ml)) 5,000 unit Q12 SC Last administered on 09/16/16 08:28; Admin Dose 5,000 UNIT; Start 09/15/16 at 21:00 Amlodipine Besylate (Norvasc) 5 mg DAILY PO Last administered on 09/16/16 08: 26; Admin Dose 5 MG; Start 09/16/16 at 09:00 Aspirin (Halfprin) 81 mg DAILY PO Last administered on 09/16/16 08:25; Admin Dose 81 MG; Start 09/16/16 at 09:00 Atorvastatin Calcium (Lipitor) 80 mg QHS PO Last administered on 09/15/16 21:35 ; Admin Dose 80 MG; Start 09/15/16 at 21:00 Clopidogrel Bisulfate (plaVIX) 75 mg DAILY PO Last administered on 09/16/16 08 :25; Admin Dose 75 MG; Start 09/16/16 at 09:00 Gabapentin (Neurontin) 200 mg TID PO Last administered on 09/16/16 08:25; Admin Dose 200 MG; Start 09/15/16 at 21:00 Metoprolol Tartrate (Lopressor) 25 mg BID PO Last administered on 09/16/16 08: 25; Admin Dose 25 MG; Start 09/15/16 at 21:00 Sertraline HCl (Zoloft) 50 mg DAILY PO Last administered on 09/16/16 08:25; Admin Dose 50 MG; Start 09/16/16 at 09:00 Fenofibrate (Tricor) 145 mg DAILY PO Last administered on 09/16/16 08:25; Admin Dose 145 MG; Start 09/16/16 at 09:00 Niacin (Niaspan) 1,000 mg QHS PO ; Start 09/15/16 at 21:00 Fish Oil (Fish Oil) 2,000 mg BID PO Last administered on 09/16/16 08:25; Admin Dose 2,000 MG; Start 09/15/16 at 21:00 Hydralazine HCl (Apresoline) 10 mg Q6H PRN IV SBP>160; Start 09/15/16 at 16:30 Bumetanide (Bumex) 2 mg BID PO Last administered on 09/16/16 08:24; Admin Dose 2 MG; Start 09/15/16 at 21:00 Miscellaneous Information (*Order Clarification Bulletin) MEDICATION REQUIRES CLARIFICATION: Q8H XX ; Start 09/15/16 at 18:00 Miscellaneous Information 1 ea NOTE XX ; Start 09/15/16 at 18:00 Glucose (Glutose) 15 gm Q15M PRN PO DECREASED GLUCOSE; Start 09/15/16 at 18:00 Glucose (Glutose) 22.5 gm Q15M PRN PO DECREASED GLUCOSE; Start 09/15/16 at 18:00 Dextrose (D50w Syringe) 25 ml Q15M PRN IV DECREASED GLUCOSE Last administered on 09/16/16 04:14; Admin Dose 25 ML; Start 09/15/16 at 18:00 Dextrose (D50w Syringe) 50 ml Q15M PRN IV DECREASED GLUCOSE; Start 09/15/16 at 18:00 Glucagon (Glucagen) 1 mg Q15M PRN IM DECREASED GLUCOSE; Start 09/15/16 at 18:00 Glucose (Glutose) 15 gm Q15M PRN BUCCAL DECREASED GLUCOSE; Start 09/15/16 at 18: 00 Cholecalciferol (Vitamin D) 1,000 unit DAILY PO Last administered on 09/16/16 08:25; Admin Dose 1,000 UNIT; Start 09/16/16 at 09:00 Miscellaneous Information (Pending Santyl Order For Wound Care) This patient urbano... PRN PRN XX WOUND CARE; Start 09/16/16 at 06:30; Status UNV Collagenase (Santyl) 1 applic DAILY TOP Last administered on 09/16/16 08:26; Admin Dose 1 APPLIC; Start 09/16/16 at 09:00 FLOYD FONTANA MD Sep 16, 2016 11:51
--- NOTE | 2016-09-16 14:25 | RADRPT ---
PROCEDURE: US bilateral lower extremity arteries. CLINICAL INDICATION: Bilateral leg pain. Claudication that interferes significantly with the linette ent's lifestyle. Right lower extremity ulcer and decreased pulses. TECHNIQUE: Multiple longitudinal and transverse images of the bilateral lower extremity arteries w ere obtained with sethi scale, pulsed Doppler, and color Doppler imaging. COMPARISON: No prior studies are available for comparison. FINDINGS: Right MANAGER OF PROGRAM:130 cm/sec PSFA:102 cm/sec MSFA:102 cm/sec DSFA:109 cm/sec POP:104 cm/sec RING MAKER:22 cm/sec DPA:74 cm/sec Left MANAGER OF PROGRAM:115 cm/sec PSFA:125 cm/sec MSFA:89 cm/sec DSFA:92 cm/sec POP:98 cm/sec RING MAKER:122 cm/sec DPA:47 cm/sec The right ankle-brachial index is 1.0 and the left ankle-brachial index is 1.1. There is normal triphasic flow throughout the arterial system of both lower extremities. Mild nonoc clusive plaque is present bilaterally. IMPRESSION: 1. Mild plaque formation without evidence for hemodynamically significant stenosis or occlusion. RPTAT: QQ .Enrique Nevarez MD, MD Date Time Electronically viewed and signed by .Enrique Nevarez MD, on 09/16/2016 14:25 .R/
--- NOTE | 2016-09-16 17:46 | PN ---
DATE: 09/16/2016 SUBJECTIVE: No acute changes. Patient is alert, feels good, looks comfortable, no fevers. WBC 9.5, no shift. BUN 33, creatinine 2.14. MICROBIOLOGY: Blood cultures remain negative. Urine culture growing gram-negative rods. Wound cul ture pending. DIAGNOSTICS: Arterial study revealed mild plaque formation without evidence of hemodynamically sign ificant stenosis or occlusion. ANTIMICROBIALS: The patient is on: 1. Zosyn. 2. Vancomycin. PHYSICAL EXAMINATION: GENERAL: This is a morbidly obese, well-developed, elderly woman who is alert, in no distress. HEENT: Head atraumatic, normocephalic. Sclerae anicteric. Buccal mucosa pink. NECK: Obese. LUNGS: Chest rise symmetrical. Breath sounds diminished to bases. HEART: S1, S2. ABDOMEN: Soft. Bowel tones present. EXTREMITIES: Bilateral edema. Right ankle wound covered with dressing. ASSESSMENT: 1. Sepsis with fevers and leukocytosis. 2. Right lateral ankle nonhealing ulceration, cultures pending. 3. Gram-negative rods urinary tract infection. 4. Diabetes. 5. Morbid obesity. 6. Chronic kidney disease. PLAN: The patient remains stable, covered with appropriate antimicrobials. Cultures are pending. She is being seen by Dr. Iraheta in podiatry consultation. Dictated By: MILKA NICOLE STAIN APPLICATOR for JOSE PAGAN/RO Conf#: [id number] DID#: [id number]
[2016-09-16] MEDS: ROPINIROLE HCL 8 MG XX SCH (21:00)
[2016-09-16] MEDS: ATORVASTATIN 80 MG TAB PO SCH (22:21)
[2016-09-16] MEDS: NIACIN (ER) 500 MG TAB PO SCH (22:22)
[2016-09-16] MEDS: morphine 2 MG INJ IV PRN (22:23)
[2016-09-17] VITALS (14 sets, daily range): BP systolic 121–134; BP diastolic 56–62; PULSE 56–79; RESP 18–20
[2016-09-17] MEDS: [UNRECOGNIZED DRUG - REMARK] XX SCH ×3 (02:00→17:17)
[2016-09-17] MEDS: PANTOPRAZOLE (EC) 40 MG TAB PO SCH (06:03)
[2016-09-17] MEDS: PIPER-TAZO 2.25 GM (PMX) 50 ML IVPB SCH (06:03)
[2016-09-17] MEDS: LEVOTHYROXINE 100 MCG TAB PO SCH (06:03)
[2016-09-17] MEDS: morphine 2 MG INJ IV PRN ×2 (06:44→12:21)
[2016-09-17] MEDS: PT'S OWN INSULIN PUMP (Humalog) SC SCH ×2 (07:25→12:33)
[2016-09-17] MEDS: ALBUTEROL/IPRATROPIUM (NEB) 3 ML AMP HHN SCH ×3 (07:51→19:42)
[2016-09-17 07:52] LABS: ADD SCAN DIFF NO
[2016-09-17 07:53] LABS: BASOPHILS % 0.4 % (0.0-2.0); EOSINOPHILS # 0.2 10^3/ul (0.0-0.5); EOSINOPHILS % 2.9 % (0.0-7.0); HEMATOCRIT 28.7 % (37.0-47.0); HEMOGLOBIN 8.7 g/dl (12.0-16.0); LYMPHOCYTES # 0.9 10^3/ul (0.8-2.9); LYMPHOCYTES % 11.9 % (15.0-51.0); MEAN CORPUSCULAR HEMOGLOBIN 28.1 pg (29.0-33.0); MEAN CORPUSCULAR HGB CONC 30.3 g/dl (32.0-37.0); MEAN CORPUSCULAR VOLUME 92.6 fl (82.0-101.0); MEAN PLATELET VOLUME 9.6 fl (7.4-10.4); MONOCYTE # 0.9 10^3/ul (0.3-0.9); MONOCYTES % 12.3 % (0.0-11.0); NEUTROPHIL # 5.5 10^3/ul (1.6-7.5); NEUTROPHILS % 72.1 % (39.0-77.0); PLATELET COUNT 266 10^3/UL (140-415); RED CELL DISTRIBUTION WIDTH 16.1 % (11.5-14.5); WHITE BLOOD COUNT 7.6 10^3/ul (4.8-10.8)
[2016-09-17] MEDS: CHOLECALCIFEROL 1,000 UNIT TAB PO SCH (08:07)
[2016-09-17] MEDS: GABAPENTIN 100 MG CAP PO SCH ×3 (08:07→21:13)
[2016-09-17] MEDS: FENOFIBRATE 145 MG TAB PO SCH (08:08)
[2016-09-17] MEDS: AMLODIPINE 5 MG TAB PO SCH (08:08)
[2016-09-17] MEDS: FISH OIL 1,000 MG CAP PO SCH ×2 (08:08→21:12)
[2016-09-17] MEDS: ASPIRIN (EC) 81 MG TAB PO SCH (08:08)
[2016-09-17] MEDS: CLOPIDOGREL 75 MG TAB PO SCH (08:08)
[2016-09-17] MEDS: SERTRALINE 50 MG TAB PO SCH (08:08)
[2016-09-17] MEDS: METOPROLOL 25 MG TAB PO SCH ×2 (08:08→21:14)
[2016-09-17 08:09] LABS: CALCIUM 8.5 mg/dl (8.4-10.2); CREATININE 2.17 mg/dl (0.44-1.00); MAGNESIUM 2.3 mg/dl (1.7-2.5); POTASSIUM 4.1 mmol/L (3.5-5.1)
[2016-09-17] MEDS: BUMETANIDE 1 MG TAB PO SCH ×2 (08:09→21:12)
[2016-09-17] MEDS: HEPARIN 5,000 UNIT/0.5 ML VIAL SC SCH ×2 (08:09→21:22)
[2016-09-17] MEDS: COLLAGENASE 30 GM TUBE TOP SCH (08:10)
--- NOTE | 2016-09-17 12:16 | PN ---
Date/Time of Note Date/Time of Note DATE: 09/17/16 TIME: 12:02 Assessment/Plan VTE Prophylaxis VTE Prophylaxis Intervention: other Lines/Catheters IV [facility] [place] [facility] Urinary Cath still in place: Yes Reason Cath still needed: other (indicate) Assessment/Plan Chief Complaint/Hosp Course Assessment and plan 1. Sepsis with no evidence of septic shock, most probably secondary to underlying healthcare-associated pneumonia and urinary tract infection. Continue Zosyn and vancomycin, , infectious disease doctor has been consulted . influenza A and B screening are negative. 2. Healthcare-associated pneumonia/pleural effusion. Continue IV antibiotics, follow-up chest x-ray in a.m. Infectious disease consult will be obtained. 3. Urinary tract infection. The patient has positive urine leukocyte esterase, and positive nitrite in urine. The patient also has WBC of 25 to 50. The patient has a chronic indwelling Garcia catheter. Continue IV antibiotics 4. Right leg nonhealing wound. , this wound was caused by an immobilizer that was used recently for a right tibial plateau fracture. This wound has been nonhealing. The patient's right ankle x-ray showing 2 lucencies present within the navicular bone with concern for osteomyelitis. A podiatry consult has been obtained. The patient will be provided with local wound care. Follow-up MRI of the ankle to rule out osteomyelitis 5. Type 1 diabetes mellitus on an insulin pump. The patient will be allowed to use the insulin pump. An endocrinology consult will be obtained to manage the insulin pump. 6. Dyslipidemia. The patient's antilipidemic medications will be resumed. 7. Coronary artery disease, continue statin, aspirin and Plavix. These will be continued. 8. Depression. The patient's antidepressants will be resumed. 9. Anxiety. The patient anxiolytics will be resumed. 10. Hypothyroidism. The patient's Synthroid will be resumed. 11. Morbid obesity. Weight reduction will be advised. 12. Chronic kidney disease. The patient has history of chronic kidney disease. Nephrotoxic drugs will be used with caution. 13. Bacteremia with positive gram-positive blood culture, follow up sensitivity , infectious disease doctor has been consulted, continue broad-spectrum IV antibiotics Plan. Continue wound care PT OT eval and treat Director Of Health Education input and management is appreciated Plan to discharge home status post blood culture sensitivity result, will discharge on IV antibiotic with home health Problems: Subjective 24 Hr Interval Summary Free Text/Dictation Patient denies of any chest pain or shortness of breath Requesting to be discharged home No nausea vomiting diarrhea MRI of the brain was canceled secondary to patient having metals in her right lower extremity Exam/Review of Systems Vital Signs Vitals Vital Signs Date Time Temp Pulse Resp B/P Pulse Ox O2 Delivery O2 Flow Rate FiO2 09/17/16 08:31 60 09/17/16 08:02 98.2 18 134/60 97 09/17/16 07:51 Nasal Cannula 2.0 09/17/16 01:25 35 Intake and Output 09/16/16 09/16/16 09/17/16 15:00 23:00 07:00 Intake Total 950 ml 2100 ml Output Total 1100 ml 2300 ml Balance -150 ml -200 ml Exam General: The patient is moderately overweight, Not in acute distress. HEENT: Atraumatic, normocephalic. The pupils are equal and round . Neck: Supple with full range of motion. Chest: Normal expansion of the thorax during inspiration Lungs: Clear to auscultation bilaterally Heart: Normal S1-S2, Regular rhythm and rate. Abdomen: Soft , nontender, nondistended , bowel sounds are present. Extremities: Right lower extremity ulcer at street area, no edema no cyanosis Neurologic: Normal mental status,The patient is awake, alert and oriented . Results Result Diagram: 09/17/16 0730 09/17/16 0730 Results 24 hrs Laboratory Tests Test 09/16/16 12:19 09/16/16 16:51 09/16/16 20:24 09/16/16 22:17 Bedside Glucose 133 107 68 L 173 Test 09/17/16 07:30 09/17/16 07:45 White Blood Count 7.6 Red Blood Count 3.10 L Hemoglobin 8.7 L Hematocrit 28.7 L Mean Corpuscular Volume 92.6 Mean Corpuscular Hemoglobin 28.1 L Mean Corpuscular Hemoglobin Concent 30.3 L Red Cell Distribution Width 16.1 H Platelet Count 266 Mean Platelet Volume 9.6 Neutrophils % 72.1 Lymphocytes % 11.9 L Monocytes % 12.3 H Eosinophils % 2.9 Basophils % 0.4 Nucleated Red Blood Cells % 0.0 Neutrophils # 5.5 Lymphocytes # 0.9 Monocytes # 0.9 Eosinophils # 0.2 Basophils # 0.0 Nucleated Red Blood Cells # 0.0 Sodium Level 138 Potassium Level 4.1 Chloride Level 100 Carbon Dioxide Level 32 H Anion Gap 10 Blood Urea Nitrogen 37 H Creatinine 2.17 H Glucose Level 78 Calcium Level 8.5 Magnesium Level 2.3 Bedside Glucose 81 Medications Medications Current Medications Piperacillin Sod/ Tazobactam Sod (Zosyn 2.25gm/ 50ml (Pmx)) 50 ml @ 100 mls/hr Q8 IVPB Last administered on 09/17/16 06:03; Admin Dose 100 MLS/HR; Start 09/15 at 22:00 Ondansetron HCl (Zofran Inj) 4 mg Q6H PRN IV NAUSEA AND/OR VOMITING Last administered on 09/15/16 22:22; Admin Dose 4 MG; Start 09/15/16 at 16:30 Acetaminophen (Tylenol Tab) 650 mg Q6H PRN PO PAIN LEVEL 1-3 OR FEVER Last administered on 09/16/16 04:14; Admin Dose 650 MG; Start 09/15/16 at 16:30 Acetaminophen/ Hydrocodone Bitart ([place] (5/325)) 1 tab Q6H PRN PO MODERATE PAIN LEVEL 4-6 Last administered on 09/16/16 11:14; Admin Dose 1 TAB; Start 09/15/16 at 16:30 Morphine Sulfate (morphine) 4 mg Q4H PRN IV SEVERE PAIN LEVEL 7-10 Last administered on 09/17/16 06:44; Admin Dose 4 MG; Start 09/15/16 at 16:30 Heparin Sodium (Porcine) (Heparin (5000 Units/0.5 ml)) 5,000 unit Q12 SC Last administered on 09/17/16 08:09; Admin Dose 5,000 UNIT; Start 09/15/16 at 21:00 Amlodipine Besylate (Norvasc) 5 mg DAILY PO Last administered on 09/17/16 08: 08; Admin Dose 5 MG; Start 09/16/16 at 09:00 Aspirin (Halfprin) 81 mg DAILY PO Last administered on 09/17/16 08:08; Admin Dose 81 MG; Start 09/16/16 at 09:00 Atorvastatin Calcium (Lipitor) 80 mg QHS PO Last administered on 09/16/16 22: 21; Admin Dose 80 MG; Start 09/15/16 at 21:00 Clopidogrel Bisulfate (plaVIX) 75 mg DAILY PO Last administered on 09/17/16 08 :08; Admin Dose 75 MG; Start 09/16/16 at 09:00 Gabapentin (Neurontin) 200 mg TID PO Last administered on 09/17/16 08:07; Admin Dose 200 MG; Start 09/15/16 at 21:00 Metoprolol Tartrate (Lopressor) 25 mg BID PO Last administered on 09/17/16 08: 08; Admin Dose 25 MG; Start 09/15/16 at 21:00 Sertraline HCl (Zoloft) 50 mg DAILY PO Last administered on 09/17/16 08:08; Admin Dose 50 MG; Start 09/16/16 at 09:00 Fenofibrate (Tricor) 145 mg DAILY PO Last administered on 09/17/16 08:08; Admin Dose 145 MG; Start 09/16/16 at 09:00 Niacin (Niaspan) 1,000 mg QHS PO Last administered on 09/16/16 22:22; Admin Dose 1,000 MG; Start 09/15/16 at 21:00 Fish Oil (Fish Oil) 2,000 mg BID PO Last administered on 09/17/16 08:08; Admin Dose 2,000 MG; Start 09/15/16 at 21:00 Miscellaneous Information 8 mg QHS XX ; Start 09/15/16 at 21:00 Hydralazine HCl (Apresoline) 10 mg Q6H PRN IV SBP>160; Start 09/15/16 at 16:30 Bumetanide (Bumex) 2 mg BID PO Last administered on 09/17/16 08:09; Admin Dose 2 MG; Start 09/15/16 at 21:00 Miscellaneous Information (*Order Clarification Bulletin) MEDICATION REQUIRES CLARIFICATION: Q8H XX ; Start 09/15/16 at 18:00 Miscellaneous Information 1 ea NOTE XX ; Start 09/15/16 at 18:00 Glucose (Glutose) 15 gm Q15M PRN PO DECREASED GLUCOSE; Start 09/15/16 at 18:00 Glucose (Glutose) 22.5 gm Q15M PRN PO DECREASED GLUCOSE; Start 09/15/16 at 18:00 Dextrose (D50w Syringe) 25 ml Q15M PRN IV DECREASED GLUCOSE Last administered on 09/16/16 04:14; Admin Dose 25 ML; Start 09/15/16 at 18:00 Dextrose (D50w Syringe) 50 ml Q15M PRN IV DECREASED GLUCOSE; Start 09/15/16 at 18:00 Glucagon (Glucagen) 1 mg Q15M PRN IM DECREASED GLUCOSE; Start 09/15/16 at 18:00 Glucose (Glutose) 15 gm Q15M PRN BUCCAL DECREASED GLUCOSE; Start 09/15/16 at 18: 00 Cholecalciferol (Vitamin D) 1,000 unit DAILY PO Last administered on 09/17/16 08:07; Admin Dose 1,000 UNIT; Start 09/16/16 at 09:00 Collagenase (Santyl) 1 applic DAILY TOP Last administered on 09/17/16 08:10; Admin Dose 1 APPLIC; Start 09/16/16 at 09:00 FLOYD FONTANA MD Sep 17, 2016 12:14
--- NOTE | 2016-09-17 12:46 | CONS ---
Date/Time of Note Date/Time of Note DATE: 09/17/16 TIME: 12:40 Assessment/Plan Assessment/Plan Problems: (1) Morbid (severe) obesity due to excess calories Status: Chronic Comment: She will be on a calorie restriction while in the hospital (2) Hypothyroidism Status: Chronic Comment: Continue replacement dose therapy Qualifiers: Qualified Code: E03.9 - Acquired hypothyroidism (3) Age-related osteoporosis without current pathological fracture Status: Chronic Comment: She has been on medication treatment is relatively stable (4) Essential (primary) hypertension Status: Chronic Comment: Well-controlled on current medications (5) Chronic indwelling Garcia catheter Status: Chronic Comment: She has a UTI and is under treatment for this. She has an outpatient urologist. (6) Type 2 diabetes mellitus with hyperglycemia Status: Chronic Comment: She has been well controlled with an insulin pump. Unfortunately she does not have access to her's pump supplies which are at home and will be going get them. As she is running out of equipment while in the hospital I will switch her over to a basal bolus multiple daily injection regimen and follow her along. She will resume her pump as an outpatient Qualifiers: Qualified Code: E11.65 - Type 2 diabetes mellitus with hyperglycemia, with long-term current use of insulin (7) Chronic kidney disease, stage IV (severe) Status: Chronic Comment: Noted and stable Consultation Date/Type/Reason Admit Date/Time Sep 15, 2016 at 15:14 Date of Consultation: Sep 17, 2016 Type of Consultation: Endocrinology Reason for Consultation Diabetes mellitus type 2 with insulin resistance syndrome also; morbid obesity; obstructive sleep apnea; etc. Referring Provider: FLOYD FONTANA MD Hx of Present Illness 71-year-old female with insulin resistance syndrome diabetes mellitus type 2 morbid obesity maintained on an insulin pump. She was admitted for an outpatient acquired healthcare associated pneumonia. She is staying in the hospital on her pump is running out of supplies and insulin and she is going to be transition over to multiple daily and injection regimen. 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 - diastolic dysfunction; chronic kidney disease stage III; vitamin D deficiency ; major depressive disorder; gastroesophageal reflux disease; obstructive sleep apnea; hypothyroidism; osteoporosis; recurrent urinary tract infections Medical History: diabetes, high cholesterol, hypertension, hypothyroid, renal disease Past Surgical History Status post total abdominal hysterectomy; status post left total knee replacement; status post right femur fracture with hip repair and rodding of the right femur Past Surgical Hx: cholecystectomy, other Family History Significant Family History: diabetes, hypertension Social History Alcohol Use: none Smoking Status: Never smoker Drug Use: none Exam/Review of Systems Vital Signs Vitals Vital Signs Date Time Temp Pulse Resp B/P Pulse Ox O2 Delivery O2 Flow Rate FiO2 09/17/16 12:25 65 09/17/16 12:02 98.4 19 121/56 93 09/17/16 07:51 Nasal Cannula 2.0 09/17/16 01:25 35 Intake and Output 09/16/16 09/16/16 09/17/16 14:59 22:59 06:59 Intake Total 950 ml 2100 ml Output Total 1100 ml 2300 ml Balance -150 ml -200 ml Exam Morbidly obese female lying in bed Constitutional: alert, oriented Neck: non-tender, supple Respiratory: clear to auscultation, normal air movement Cardiovascular: nl pulses, regular rate and rhythm Gastrointestinal: nl liver, spleen, non-tender, soft Results Result Diagram: 09/17/16 0730 09/17/16 0730 Results 24 hrs Laboratory Tests Test 09/16/16 16:51 09/16/16 20:24 09/16/16 22:17 09/17/16 07:30 Bedside Glucose 107 68 L 173 White Blood Count 7.6 Red Blood Count 3.10 L Hemoglobin 8.7 L Hematocrit 28.7 L Mean Corpuscular Volume 92.6 Mean Corpuscular Hemoglobin 28.1 L Mean Corpuscular Hemoglobin Concent 30.3 L Red Cell Distribution Width 16.1 H Platelet Count 266 Mean Platelet Volume 9.6 Neutrophils % 72.1 Lymphocytes % 11.9 L Monocytes % 12.3 H Eosinophils % 2.9 Basophils % 0.4 Nucleated Red Blood Cells % 0.0 Neutrophils # 5.5 Lymphocytes # 0.9 Monocytes # 0.9 Eosinophils # 0.2 Basophils # 0.0 Nucleated Red Blood Cells # 0.0 Sodium Level 138 Potassium Level 4.1 Chloride Level 100 Carbon Dioxide Level 32 H Anion Gap 10 Blood Urea Nitrogen 37 H Creatinine 2.17 H Glucose Level 78 Calcium Level 8.5 Magnesium Level 2.3 Test 09/17/16 07:45 Bedside Glucose 81 Medications Medications Current Medications Piperacillin Sod/ Tazobactam Sod (Zosyn 2.25gm/ 50ml (Pmx)) 50 ml @ 100 mls/hr Q8 IVPB Last administered on 09/17/16 06:03; Admin Dose 100 MLS/HR; Start 09/15 at 22:00 Ondansetron HCl (Zofran Inj) 4 mg Q6H PRN IV NAUSEA AND/OR VOMITING Last administered on 09/15/16 22:22; Admin Dose 4 MG; Start 09/15/16 at 16:30 Acetaminophen (Tylenol Tab) 650 mg Q6H PRN PO PAIN LEVEL 1-3 OR FEVER Last administered on 09/16/16 04:14; Admin Dose 650 MG; Start 09/15/16 at 16:30 Acetaminophen/ Hydrocodone Bitart ([place] (5/325)) 1 tab Q6H PRN PO MODERATE PAIN LEVEL 4-6 Last administered on 09/16/16 11:14; Admin Dose 1 TAB; Start 09/15/16 at 16:30 Morphine Sulfate (morphine) 4 mg Q4H PRN IV SEVERE PAIN LEVEL 7-10 Last administered on 09/17/16 12:21; Admin Dose 4 MG; Start 09/15/16 at 16:30 Heparin Sodium (Porcine) (Heparin (5000 Units/0.5 ml)) 5,000 unit Q12 SC Last administered on 09/17/16 08:09; Admin Dose 5,000 UNIT; Start 09/15/16 at 21:00 Amlodipine Besylate (Norvasc) 5 mg DAILY PO Last administered on 09/17/16 08: 08; Admin Dose 5 MG; Start 09/16/16 at 09:00 Aspirin (Halfprin) 81 mg DAILY PO Last administered on 09/17/16 08:08; Admin Dose 81 MG; Start 09/16/16 at 09:00 Atorvastatin Calcium (Lipitor) 80 mg QHS PO Last administered on 09/16/16 22: 21; Admin Dose 80 MG; Start 09/15/16 at 21:00 Clopidogrel Bisulfate (plaVIX) 75 mg DAILY PO Last administered on 09/17/16 08 :08; Admin Dose 75 MG; Start 09/16/16 at 09:00 Gabapentin (Neurontin) 200 mg TID PO Last administered on 09/17/16 08:07; Admin Dose 200 MG; Start 09/15/16 at 21:00 Metoprolol Tartrate (Lopressor) 25 mg BID PO Last administered on 09/17/16 08: 08; Admin Dose 25 MG; Start 09/15/16 at 21:00 Sertraline HCl (Zoloft) 50 mg DAILY PO Last administered on 09/17/16 08:08; Admin Dose 50 MG; Start 09/16/16 at 09:00 Fenofibrate (Tricor) 145 mg DAILY PO Last administered on 09/17/16 08:08; Admin Dose 145 MG; Start 09/16/16 at 09:00 Niacin (Niaspan) 1,000 mg QHS PO Last administered on 09/16/16 22:22; Admin Dose 1,000 MG; Start 09/15/16 at 21:00 Fish Oil (Fish Oil) 2,000 mg BID PO Last administered on 09/17/16 08:08; Admin Dose 2,000 MG; Start 09/15/16 at 21:00 Miscellaneous Information 8 mg QHS XX ; Start 09/15/16 at 21:00 Hydralazine HCl (Apresoline) 10 mg Q6H PRN IV SBP>160; Start 09/15/16 at 16:30 Bumetanide (Bumex) 2 mg BID PO Last administered on 09/17/16 08:09; Admin Dose 2 MG; Start 09/15/16 at 21:00 Miscellaneous Information (*Order Clarification Bulletin) MEDICATION REQUIRES CLARIFICATION: Q8H XX ; Start 09/15/16 at 18:00 Miscellaneous Information 1 ea NOTE XX ; Start 09/15/16 at 18:00 Glucose (Glutose) 15 gm Q15M PRN PO DECREASED GLUCOSE; Start 09/15/16 at 18:00 Glucose (Glutose) 22.5 gm Q15M PRN PO DECREASED GLUCOSE; Start 09/15/16 at 18:00 Dextrose (D50w Syringe) 25 ml Q15M PRN IV DECREASED GLUCOSE Last administered on 09/16/16 04:14; Admin Dose 25 ML; Start 09/15/16 at 18:00 Dextrose (D50w Syringe) 50 ml Q15M PRN IV DECREASED GLUCOSE; Start 09/15/16 at 18:00 Glucagon (Glucagen) 1 mg Q15M PRN IM DECREASED GLUCOSE; Start 09/15/16 at 18:00 Glucose (Glutose) 15 gm Q15M PRN BUCCAL DECREASED GLUCOSE; Start 09/15/16 at 18: 00 Cholecalciferol (Vitamin D) 1,000 unit DAILY PO Last administered on 09/17/16 08:07; Admin Dose 1,000 UNIT; Start 09/16/16 at 09:00 Collagenase (Santyl) 1 applic DAILY TOP Last administered on 09/17/16 08:10; Admin Dose 1 APPLIC; Start 09/16/16 at 09:00 Insulin Glargine (Lantus) 10 unit ONCE ONCE SC ; Start 09/17/16 at 12:30; Stop 09/17/16 at 12:31; Status UNV Insulin Glargine (Lantus) 18 unit BID@08,20 SC ; Start 09/17/16 at 20:00; Status UNV Miscellaneous Information (* Miscellaneous Pharmacy Order) HYPOGLYCEMIA PROTOCOL w... ONCE ONCE XX ; Start 09/17/16 at 12:30; Stop 09/17/16 at 12:31; Status UNV Miscellaneous Information (* Miscellaneous Pharmacy Order) Discontinue Glyburide , Glipizide,... ONCE ONCE XX ; Start 09/17/16 at 12:30; Stop 09/17/16 at 12:31 ; Status UNV Miscellaneous Information (* Miscellaneous Pharmacy Order) Discontinue all previ... ONCE ONCE XX ; Start 09/17/16 at 12:30; Stop 09/17/16 at 12:31; Status UNV Diagnostic Test (Pha) (Accu-Chek) 1 ea 02 XX ; Start 09/18/16 at 02:00; Status UNV TYRELL MAYORGA MD Sep 17, 2016 12:46
[2016-09-17] MEDS: INSULIN GLARGINE [LANtus] 3 ML PEN SC ONE ×2 (13:17→14:18)
--- NOTE | 2016-09-17 13:58 | PN ---
DATE: 09/17/2016 SUBJECTIVE: No acute changes. The patient is sleeping, looks comfortable, no fevers. No vomiting or diarrhea per report. LABORATORY DATA: WBC 7.6, no shift, no bands. BUN 37, creatinine 2.17. MICROBIOLOGY: Blood culture growing gram-positive cocci in clusters, 1 out of 2 sets. Urine cultur e growing E. coli ESBL. Nares swab came back positive for MRSA. ANTIMICROBIALS: The patient is on: 1. IV vancomycin. 2. Zosyn. PHYSICAL EXAMINATION: GENERAL: This is a morbidly obese, elderly woman who is awake, in no distress. HEENT: Head atraumatic, normocephalic. Sclerae anicteric. Buccal mucosa dry. NECK: Supple. CHEST: Rise symmetrical. Breath sounds clear, diminished to bases. HEART: S1, S2. ABDOMEN: Soft, bowel sounds present. EXTREMITIES: Without cyanosis. ASSESSMENT: 1. Resolving sepsis, status post fevers and leukocytosis. 2. Right ankle chronic wound, podiatry on case. 3. Escherichia coli extended-spectrum beta-lactamase urinary tract infection. 4. Gram-positive cocci bacteremia, possibly contaminated specimen. 5. Acute on chronic kidney disease. 6. Diabetes. PLAN: The patient remains stable. We are going to discontinue Zosyn and start patient on Invanz. Continue vancomycin. Add Bactroban to nares. Repeat blood cultures. Dictated By: MILKA NICOLE SEISMOGRAPH OPERATOR HELPER for JOSE DESAI MD NI/NTS Conf#: [id number] DID#: [id number]
[2016-09-17] MEDS: ACCU-CHEK XX SCH ×2 (14:20→19:55)
[2016-09-17] MEDS: ERTAPENEM SODIUM 1 GM in SOD CHLORIDE 0.9% 100 ML IVPB SCH (14:52)
[2016-09-17] MEDS: INSULIN ASPART [NOVOLOG] 3 ML PEN SC SCH ×3 (17:16→21:00)
[2016-09-17] MEDS: BACLOFEN 10 MG TAB PO PRN (17:39)
[2016-09-17] MEDS ORDERED: LIDOCAINE 5% 35 GM OINT TOP PRN (20:30)
[2016-09-17] MEDS: ROPINIROLE HCL 8 MG XX SCH (21:00)
--- NOTE | 2016-09-17 21:00 | PN ---
DATE: 09/17/2016 SUBJECTIVE FINDINGS: The patient being followed for right lateral ankle ulceration. The patient wi th decreased leukocytosis, has persistent pain to the right lateral ankle. Enzymatic debridement in itiated. The patient anticipates being discharged home tomorrow and per ID recommendations on vanco mycin and Bactroban to nares. The patient with gram-positive bacteremia, E. coli UTI. OBJECTIVE FINDINGS: VITAL SIGNS: Temperature 98.4, pulse 62, respiratory 19, blood pressure 121/56, pulse oximetry is 9 3. GENERAL: The patient awake, alert. No acute distress. Morbidly obese. Regular respiration, nonla bored. EXTREMITIES: The patient with right lateral ankle ulceration. Eschar is unstageable to the central aspect. There is exposed subcutaneous tissue to the periphery. There is pain with palpation. Ulc eration is situated over the location of the peroneal tendons. Ulceration measures approximately 2 cm in diameter. No signs of lymphangitis. No pressure sores on bilateral posterior heels. Extremi ty is warm. There is a 2+ DP pulse. Dystrophic nails. IMAGING: Ultrasound, arterial noninvasives: Right LUCIO is 1. Left LUCIO is 1.1. Normal triphasic fl ow. Arterial system: Mild nonocclusive plaque present. LABORATORY: WBC 7.6, hemoglobin 8.7, hematocrit 28.7, platelets 266. Glucose 148. ASSESSMENT: 1. Right lateral ankle ulceration. 2. Sepsis. 3. Leukocytosis. 4. Escherichia coli urinary tract infection. 5. Gram-positive bacteremia. 6. Acute chronic kidney disease. 7. Diabetes type 2. 8. Hypothyroidism. PLAN: The patient is anticipating discharge, can perform debridement at bedside. The patient is am enable. Obtained consent. Recommend use of topical lidocaine ointment for patient comfort. Contin ue enzymatic debridement in the interim. Can perform procedure at bedside. Reviewed arterial nonin vasives. The patient with normal findings. Delayed wound healing likely due to location and initia l injury. Recommend debridement due to nonviable tissue. Dictated By: ROMINA ELLIS/RO Conf#: [id number] DID#: [id number]
[2016-09-17] MEDS: ATORVASTATIN 80 MG TAB PO SCH (21:12)
[2016-09-17] MEDS: NIACIN (ER) 500 MG TAB PO SCH (21:12)
[2016-09-17] MEDS: INSULIN GLARGINE [LANtus] 3 ML PEN SC SCH (21:16)
[2016-09-17] MEDS: MUPIROCIN 2% 22 GM OINT TOP SCH (21:26)
[2016-09-18] VITALS (14 sets, daily range): BP systolic 113–128; BP diastolic 53–68; PULSE 55–70; RESP 18–21
[2016-09-18] MEDS: ACCU-CHEK XX SCH ×4 (02:00→19:55)
[2016-09-18] MEDS: [UNRECOGNIZED DRUG - REMARK] XX SCH ×3 (02:00→18:00)
[2016-09-18] MEDS: LEVOTHYROXINE 100 MCG TAB PO SCH (06:08)
[2016-09-18] MEDS: morphine 2 MG INJ IV PRN (07:30)
[2016-09-18] MEDS: ALBUTEROL/IPRATROPIUM (NEB) 3 ML AMP HHN SCH ×3 (08:07→21:28)
[2016-09-18] MEDS: GABAPENTIN 100 MG CAP PO SCH ×3 (08:58→21:05)
[2016-09-18] MEDS: CLOPIDOGREL 75 MG TAB PO SCH (08:58)
[2016-09-18] MEDS: FENOFIBRATE 145 MG TAB PO SCH (08:59)
[2016-09-18] MEDS: SERTRALINE 50 MG TAB PO SCH (08:59)
[2016-09-18] MEDS: FISH OIL 1,000 MG CAP PO SCH ×2 (09:04→21:04)
[2016-09-18] MEDS: ASPIRIN (EC) 81 MG TAB PO SCH (09:04)
[2016-09-18] MEDS: CHOLECALCIFEROL 1,000 UNIT TAB PO SCH (09:04)
[2016-09-18] MEDS: PANTOPRAZOLE (EC) 40 MG TAB PO SCH (09:05)
[2016-09-18] MEDS: METOPROLOL 25 MG TAB PO SCH ×2 (09:05→21:05)
[2016-09-18] MEDS: BUMETANIDE 1 MG TAB PO SCH ×2 (09:05→21:05)
[2016-09-18] MEDS: AMLODIPINE 5 MG TAB PO SCH (09:05)
[2016-09-18] MEDS: HEPARIN 5,000 UNIT/0.5 ML VIAL SC SCH ×2 (09:10→21:08)
[2016-09-18] MEDS: INSULIN ASPART [NOVOLOG] 3 ML PEN SC SCH ×6 (09:11→21:10)
[2016-09-18] MEDS: INSULIN GLARGINE [LANtus] 3 ML PEN SC SCH ×2 (09:12→21:09)
[2016-09-18] MEDS: MUPIROCIN 2% 22 GM OINT TOP SCH ×2 (09:15→21:59)
[2016-09-18] MEDS: COLLAGENASE 30 GM TUBE TOP SCH (09:15)
--- NOTE | 2016-09-18 09:46 | OPR ---
DATE OF OPERATION: 09/18/2016 SURGEON: Romina Iraheta DPM IRRIGATOR SPRINKLING SYSTEM: None. PREOPERATIVE DIAGNOSES: 1. Right lateral ankle ulceration, history of minor trauma, pressure from a knee immobilizer. 2. Diabetes type 2. 3. Hypothyroidism. 4. Obesity. 5. Sepsis. 6. Leukocytosis. POSTOPERATIVE DIAGNOSES: 1. Right lateral ankle ulceration, history of minor trauma, pressure from a knee immobilizer. 2. Diabetes type 2. 3. Hypothyroidism. 4. Obesity. 5. Sepsis. 6. Leukocytosis. OPERATION Right lateral ankle excisional debridement of skin, subcutaneous tissue ulceration, 2x2 cm. PATHOLOGY: None. ANESTHESIA: Lidocaine topical ointment. ESTIMATED BLOOD LOSS: 3 mL. COMPLICATIONS: None. INDICATIONS FO PROCEDURE: The patient with nonviable tissue with pain. The patient with admission for sepsis, and procedure recommended to reduce any bacterial bioburden. DESCRIPTION OF PROCEDURE: The patient seen at the bedside, consent had been obtained, ulceration wa s cleansed, antiseptic solution. Using a 15 blade, excisional debridement of skin and subcutaneous tissue, removed approximately 50% of eschar material and underlying subcutaneous tissue. The wound was irrigated and post the debridement the patient had approximately 1 cm in diameter eschar which w as well adhered and applied Santyl and lidocaine ointment to the periwound. The patient tolerated p rocedure well, applied dry sterile dressings. POSTOPERATIVE PLAN: Will need staged debridement. The patient has been initiated on enzymatic debr idement. We will continue this daily. Likely to require home health and outpatient followup. Henrique mmend continued tight glycemic control and avoiding pressure and reinjury to this area. Dictated By: ROMINA ELLIS/RO Conf#: [id number] DID#: [id number]
[2016-09-18] MEDS: ERTAPENEM SODIUM 1 GM in SOD CHLORIDE 0.9% 100 ML IVPB SCH (13:23)
--- NOTE | 2016-09-18 16:35 | CONS ---
Date/Time of Note Date/Time of Note DATE: 09/18/16 TIME: 16:32 Assessment/Plan Assessment/Plan Chief Complaint/Hosp Course SUBJECTIVE: No acute changes. The patient is alert, looks comfortable, no fevers. MICROBIOLOGY: Blood culture growing Staph, 1 out of 2 sets. Wound cx + MRSA/ Staph/Enterococcus. Urine culture growing E. coli ESBL. Nares swab came back positive for MRSA. ANTIMICROBIALS: The patient is on: 1. IV vancomycin. 2. Invanz. PHYSICAL EXAMINATION: GENERAL: This is a morbidly obese, elderly woman who is awake, in no distress. HEENT: Head atraumatic, normocephalic. Sclerae anicteric. Buccal mucosa dry. NECK: Supple. CHEST: Rise symmetrical. Breath sounds clear, diminished to bases. HEART: S1, S2. ABDOMEN: Soft, bowel sounds present. EXTREMITIES: Without cyanosis. ASSESSMENT: 1. Resolving sepsis, status post fevers and leukocytosis. 2. Right ankle chronic wound, podiatry on case. 3. Escherichia coli extended-spectrum beta-lactamase urinary tract infection. 4. Gram-positive cocci bacteremia, possibly contaminated specimen vs 2 to chronic wound. 5. Acute on chronic kidney disease. 6. Diabetes. PLAN: The patient remains stable. Continue abx, Bactroban to nares. F/u repeat blood cultures. Wound care per podiatry [facility] staff Problems: Consultation Date/Type/Reason Admit Date/Time Sep 15, 2016 at 15:14 Initial Consult Date 09/17/16 Type of Consultation: ID Referring Provider: FLOYD FONTANA MD Exam/Review of Systems Vital Signs Vitals Vital Signs Date Time Temp Pulse Resp B/P Pulse Ox O2 Delivery O2 Flow Rate FiO2 09/18/16 15:35 98.6 61 18 119/56 100 09/18/16 13:58 2.0 09/18/16 13:57 28 09/18/16 07:45 Nasal Cannula Intake and Output 09/17/16 09/17/16 09/18/16 15:00 23:00 07:00 Intake Total 900 ml 120 ml Output Total 1800 ml 3000 ml Balance -900 ml -2880 ml Results Result Diagram: 09/17/16 0730 09/17/16 0730 Results 24 hrs Laboratory Tests Test 09/17/16 17:16 09/17/16 20:03 09/18/16 02:15 09/18/16 08:24 Bedside Glucose 82 148 278 H 298 H Test 09/18/16 12:23 Bedside Glucose 299 H Medications Medications Current Medications Ondansetron HCl (Zofran Inj) 4 mg Q6H PRN IV NAUSEA AND/OR VOMITING Last administered on 09/15/16 22:22; Admin Dose 4 MG; Start 09/15/16 at 16:30 Acetaminophen (Tylenol Tab) 650 mg Q6H PRN PO PAIN LEVEL 1-3 OR FEVER Last administered on 09/16/16 04:14; Admin Dose 650 MG; Start 09/15/16 at 16:30 Acetaminophen/ Hydrocodone Bitart (Counselor (5/325)) 1 tab Q6H PRN PO MODERATE PAIN LEVEL 4-6 Last administered on 09/16/16 11:14; Admin Dose 1 TAB; Start 09/15/16 at 16:30 Morphine Sulfate (morphine) 4 mg Q4H PRN IV SEVERE PAIN LEVEL 7-10 Last administered on 09/18/16 07:30; Admin Dose 4 MG; Start 09/15/16 at 16:30 Heparin Sodium (Porcine) (Heparin (5000 Units/0.5 ml)) 5,000 unit Q12 SC Last administered on 09/18/16 09:10; Admin Dose 5,000 UNIT; Start 09/15/16 at 21:00 Amlodipine Besylate (Norvasc) 5 mg DAILY PO Last administered on 09/18/16 09: 05; Admin Dose 5 MG; Start 09/16/16 at 09:00 Aspirin (Halfprin) 81 mg DAILY PO Last administered on 09/18/16 09:04; Admin Dose 81 MG; Start 09/16/16 at 09:00 Atorvastatin Calcium (Lipitor) 80 mg QHS PO Last administered on 09/17/16 21: 12; Admin Dose 80 MG; Start 09/15/16 at 21:00 Clopidogrel Bisulfate (plaVIX) 75 mg DAILY PO Last administered on 09/18/16 08 :58; Admin Dose 75 MG; Start 09/16/16 at 09:00 Gabapentin (Neurontin) 200 mg TID PO Last administered on 09/18/16 13:22; Admin Dose 200 MG; Start 09/15/16 at 21:00 Metoprolol Tartrate (Lopressor) 25 mg BID PO Last administered on 09/18/16 09: 05; Admin Dose 25 MG; Start 09/15/16 at 21:00 Sertraline HCl (Zoloft) 50 mg DAILY PO Last administered on 09/18/16 08:59; Admin Dose 50 MG; Start 09/16/16 at 09:00 Fenofibrate (Tricor) 145 mg DAILY PO Last administered on 09/18/16 08:59; Admin Dose 145 MG; Start 09/16/16 at 09:00 Niacin (Niaspan) 1,000 mg QHS PO Last administered on 09/17/16 21:12; Admin Dose 1,000 MG; Start 09/15/16 at 21:00 Fish Oil (Fish Oil) 2,000 mg BID PO Last administered on 09/18/16 09:04; Admin Dose 2,000 MG; Start 09/15/16 at 21:00 Miscellaneous Information 8 mg QHS XX ; Start 09/15/16 at 21:00 Hydralazine HCl (Apresoline) 10 mg Q6H PRN IV SBP>160; Start 09/15/16 at 16:30 Bumetanide (Bumex) 2 mg BID PO Last administered on 09/18/16 09:05; Admin Dose 2 MG; Start 09/15/16 at 21:00 Miscellaneous Information (*Order Clarification Bulletin) MEDICATION REQUIRES CLARIFICATION: Q8H XX ; Start 09/15/16 at 18:00 Miscellaneous Information 1 ea NOTE XX ; Start 09/15/16 at 18:00 Glucose (Glutose) 15 gm Q15M PRN PO DECREASED GLUCOSE; Start 09/15/16 at 18:00 Glucose (Glutose) 22.5 gm Q15M PRN PO DECREASED GLUCOSE; Start 09/15/16 at 18:00 Dextrose (D50w Syringe) 25 ml Q15M PRN IV DECREASED GLUCOSE Last administered on 09/16/16 04:14; Admin Dose 25 ML; Start 09/15/16 at 18:00 Dextrose (D50w Syringe) 50 ml Q15M PRN IV DECREASED GLUCOSE; Start 09/15/16 at 18:00 Glucagon (Glucagen) 1 mg Q15M PRN IM DECREASED GLUCOSE; Start 09/15/16 at 18:00 Glucose (Glutose) 15 gm Q15M PRN BUCCAL DECREASED GLUCOSE; Start 09/15/16 at 18: 00 Cholecalciferol (Vitamin D) 1,000 unit DAILY PO Last administered on 09/18/16 09:04; Admin Dose 1,000 UNIT; Start 09/16/16 at 09:00 Collagenase (Santyl) 1 applic DAILY TOP Last administered on 09/18/16 09:15; Admin Dose 1 APPLIC; Start 09/16/16 at 09:00 Insulin Glargine (Lantus) 18 unit BID@08,20 SC Last administered on 09/18/16 09:12; Admin Dose 18 UNIT; Start 09/17/16 at 20:00 Diagnostic Test (Pha) 1 ea 1 ea 02 XX ; Start 09/18/16 at 02:00 Ertapenem/Sodium Chloride (Invanz/NS) 100 ml @ 200 mls/hr Q24H IVPB Last administered on 09/18/16 13:23; Admin Dose 200 MLS/HR; Start 09/17/16 at 14:00 Mupirocin (Bactroban) 1 applic BID TOP Last administered on 09/18/16 09:15; Admin Dose 1 APPLIC; Start 09/17/16 at 21:00 Baclofen (Lioresal) 10 mg TID PRN PO muscle spasm Last administered on 17:39; Admin Dose 10 MG; Start 09/17/16 at 17:30 Lidocaine (Lidocaine 5% Oint) 1 applic QID PRN TOP PAIN; Start 09/17/16 at 20: 30 MILKA NICOLE NP Sep 18, 2016 16:35
--- NOTE | 2016-09-18 16:43 | PN ---
Date/Time of Note Date/Time of Note DATE: 09/18/16 TIME: 16:41 Assessment/Plan VTE Prophylaxis VTE Prophylaxis Intervention: other Lines/Catheters IV Catheter Type (from [facility]): [facility] Urinary Cath still in place: Yes Reason Cath still needed: other (indicate) Assessment/Plan Chief Complaint/Hosp Course Assessment and plan 1. Sepsis with no evidence of septic shock, most probably secondary to underlying healthcare-associated pneumonia and urinary tract infection. Continue Zosyn and vancomycin, , infectious disease doctor has been consulted . influenza A and B screening are negative. 2. Healthcare-associated pneumonia/pleural effusion. Continue IV antibiotics, follow-up chest x-ray in a.m. Infectious disease consult will be obtained. 3. Urinary tract infection. The patient has positive urine leukocyte esterase, and positive nitrite in urine. The patient also has WBC of 25 to 50. The patient has a chronic indwelling Garcia catheter. Continue IV antibiotics 4. Right leg nonhealing wound. , this wound was caused by an immobilizer that was used recently for a right tibial plateau fracture. This wound has been nonhealing. . A podiatry consult has been obtained. The patient will be provided with local wound care. Patient does not qualify for MRI of the ankle secondary to prior surgeries, follow up wound culture and sensitivity 5. Type 1 diabetes mellitus on an insulin pump. The patient will be allowed to use the insulin pump. An endocrinology consult will be obtained to manage the insulin pump. 6. Dyslipidemia. The patient's antilipidemic medications will be resumed. 7. Coronary artery disease, continue statin, aspirin and Plavix. These will be continued. 8. Depression. The patient's antidepressants will be resumed. 9. Anxiety. The patient anxiolytics will be resumed. 10. Hypothyroidism. The patient's Synthroid will be resumed. 11. Morbid obesity. Weight reduction will be advised. 12. Chronic kidney disease. The patient has history of chronic kidney disease. Nephrotoxic drugs will be used with caution. 13. Bacteremia with positive gram-positive blood culture, follow up sensitivity , infectious disease doctor has been consulted, continue broad-spectrum IV antibiotics Plan. Continue wound care PT OT eval and treat Blind Teacher input and management is appreciated Plan to discharge home status post blood culture sensitivity result, will discharge on IV antibiotic with home health Problems: Subjective 24 Hr Interval Summary Free Text/Dictation No acute changes Patient is tolerating oral intake Denies of having any chest pain or shortness of breath No discomfort in lower extremity The plan has been discussed with the patient Exam/Review of Systems Vital Signs Vitals Vital Signs Date Time Temp Pulse Resp B/P Pulse Ox O2 Delivery O2 Flow Rate FiO2 09/18/16 16:36 65 09/18/16 15:35 98.6 18 119/56 100 09/18/16 13:58 2.0 09/18/16 13:57 28 09/18/16 07:45 Nasal Cannula Intake and Output 09/17/16 09/17/16 09/18/16 15:00 23:00 07:00 Intake Total 900 ml 120 ml Output Total 1800 ml 3000 ml Balance -900 ml -2880 ml Exam General: The patient is moderately overweight, Not in acute distress. HEENT: Atraumatic, normocephalic. The pupils are equal and round . Neck: Supple with full range of motion. Chest: Normal expansion of the thorax during inspiration Lungs: Clear to auscultation bilaterally Heart: Normal S1-S2, Regular rhythm and rate. Abdomen: Soft , nontender, nondistended , bowel sounds are present. Extremities: Right lower extremity erythema and ulcerated wound, no edema no cyanosis Neurologic: Normal mental status,The patient is awake, alert and oriented . Results Result Diagram: 09/17/16 0730 09/17/16 0730 Results 24 hrs Laboratory Tests Test 09/17/16 17:16 09/17/16 20:03 09/18/16 02:15 09/18/16 08:24 Bedside Glucose 82 148 278 H 298 H Test 09/18/16 12:23 Bedside Glucose 299 H Medications Medications Current Medications Ondansetron HCl (Zofran Inj) 4 mg Q6H PRN IV NAUSEA AND/OR VOMITING Last administered on 09/15/16 22:22; Admin Dose 4 MG; Start 09/15/16 at 16:30 Acetaminophen (Tylenol Tab) 650 mg Q6H PRN PO PAIN LEVEL 1-3 OR FEVER Last administered on 09/16/16 04:14; Admin Dose 650 MG; Start 09/15/16 at 16:30 Acetaminophen/ Hydrocodone Bitart (Baxter (5/325)) 1 tab Q6H PRN PO MODERATE PAIN LEVEL 4-6 Last administered on 09/16/16 11:14; Admin Dose 1 TAB; Start 09/15/16 at 16:30 Morphine Sulfate (morphine) 4 mg Q4H PRN IV SEVERE PAIN LEVEL 7-10 Last administered on 09/18/16 07:30; Admin Dose 4 MG; Start 09/15/16 at 16:30 Heparin Sodium (Porcine) (Heparin (5000 Units/0.5 ml)) 5,000 unit Q12 SC Last administered on 09/18/16 09:10; Admin Dose 5,000 UNIT; Start 09/15/16 at 21:00 Amlodipine Besylate (Norvasc) 5 mg DAILY PO Last administered on 09/18/16 09: 05; Admin Dose 5 MG; Start 09/16/16 at 09:00 Aspirin (Halfprin) 81 mg DAILY PO Last administered on 09/18/16 09:04; Admin Dose 81 MG; Start 09/16/16 at 09:00 Atorvastatin Calcium (Lipitor) 80 mg QHS PO Last administered on 09/17/16 21: 12; Admin Dose 80 MG; Start 09/15/16 at 21:00 Clopidogrel Bisulfate (plaVIX) 75 mg DAILY PO Last administered on 09/18/16 08 :58; Admin Dose 75 MG; Start 09/16/16 at 09:00 Gabapentin (Neurontin) 200 mg TID PO Last administered on 09/18/16 13:22; Admin Dose 200 MG; Start 09/15/16 at 21:00 Metoprolol Tartrate (Lopressor) 25 mg BID PO Last administered on 09/18/16 09: 05; Admin Dose 25 MG; Start 09/15/16 at 21:00 Sertraline HCl (Zoloft) 50 mg DAILY PO Last administered on 09/18/16 08:59; Admin Dose 50 MG; Start 09/16/16 at 09:00 Fenofibrate (Tricor) 145 mg DAILY PO Last administered on 09/18/16 08:59; Admin Dose 145 MG; Start 09/16/16 at 09:00 Niacin (Niaspan) 1,000 mg QHS PO Last administered on 09/17/16 21:12; Admin Dose 1,000 MG; Start 09/15/16 at 21:00 Fish Oil (Fish Oil) 2,000 mg BID PO Last administered on 09/18/16 09:04; Admin Dose 2,000 MG; Start 09/15/16 at 21:00 Miscellaneous Information 8 mg QHS XX ; Start 09/15/16 at 21:00 Hydralazine HCl (Apresoline) 10 mg Q6H PRN IV SBP>160; Start 09/15/16 at 16:30 Bumetanide (Bumex) 2 mg BID PO Last administered on 09/18/16 09:05; Admin Dose 2 MG; Start 09/15/16 at 21:00 Miscellaneous Information (*Order Clarification Bulletin) MEDICATION REQUIRES CLARIFICATION: Q8H XX ; Start 09/15/16 at 18:00 Miscellaneous Information 1 ea NOTE XX ; Start 09/15/16 at 18:00 Glucose (Glutose) 15 gm Q15M PRN PO DECREASED GLUCOSE; Start 09/15/16 at 18:00 Glucose (Glutose) 22.5 gm Q15M PRN PO DECREASED GLUCOSE; Start 09/15/16 at 18:00 Dextrose (D50w Syringe) 25 ml Q15M PRN IV DECREASED GLUCOSE Last administered on 09/16/16 04:14; Admin Dose 25 ML; Start 09/15/16 at 18:00 Dextrose (D50w Syringe) 50 ml Q15M PRN IV DECREASED GLUCOSE; Start 09/15/16 at 18:00 Glucagon (Glucagen) 1 mg Q15M PRN IM DECREASED GLUCOSE; Start 09/15/16 at 18:00 Glucose (Glutose) 15 gm Q15M PRN BUCCAL DECREASED GLUCOSE; Start 09/15/16 at 18: 00 Cholecalciferol (Vitamin D) 1,000 unit DAILY PO Last administered on 09/18/16 09:04; Admin Dose 1,000 UNIT; Start 09/16/16 at 09:00 Collagenase (Santyl) 1 applic DAILY TOP Last administered on 09/18/16 09:15; Admin Dose 1 APPLIC; Start 09/16/16 at 09:00 Insulin Glargine (Lantus) 18 unit BID@08,20 SC Last administered on 09/18/16 09:12; Admin Dose 18 UNIT; Start 09/17/16 at 20:00 Diagnostic Test (Pha) 1 ea 1 ea 02 XX ; Start 09/18/16 at 02:00 Ertapenem/Sodium Chloride (Invanz/NS) 100 ml @ 200 mls/hr Q24H IVPB Last administered on 09/18/16 13:23; Admin Dose 200 MLS/HR; Start 09/17/16 at 14:00 Mupirocin (Bactroban) 1 applic BID TOP Last administered on 09/18/16 09:15; Admin Dose 1 APPLIC; Start 09/17/16 at 21:00 Baclofen (Lioresal) 10 mg TID PRN PO muscle spasm Last administered on 17:39; Admin Dose 10 MG; Start 09/17/16 at 17:30 Lidocaine (Lidocaine 5% Oint) 1 applic QID PRN TOP PAIN; Start 09/17/16 at 20: 30 FLOYD FONTANA MD Sep 18, 2016 16:43
[2016-09-18] MEDS: ACETAMINOPHEN 325 MG TAB PO PRN (16:45)
[2016-09-18] MEDS: BACLOFEN 10 MG TAB PO PRN (16:46)
[2016-09-18] MEDS ORDERED: VANCOMYCIN IV PER PHARMACY XX SCH (17:00)
[2016-09-18] MEDS ORDERED: VANCOMYCIN 2 GM in SOD CHLORIDE 0.9% 500 ML IVPB SCH (18:00)
--- NOTE | 2016-09-18 18:18 | CONS ---
Date/Time of Note Date/Time of Note DATE: 09/18/16 TIME: 18:16 Assessment/Plan Assessment/Plan Chief Complaint/Hosp Course 71-year-old female with insulin resistance syndrome diabetes mellitus type 2 morbid obesity maintained on an insulin pump. She was admitted for an outpatient acquired healthcare associated pneumonia. She is staying in the hospital on her pump is running out of supplies and insulin and she is going to be transition over to multiple daily and injection regimen. Problems: (1) Morbid (severe) obesity due to excess calories Status: Chronic Comment: On calorie restriction. (2) Essential (primary) hypertension Status: Chronic Comment: Adequately controlled (3) Type 2 diabetes mellitus with hyperglycemia Status: Chronic Comment: Her sugars are up was being off of the pump. We had to make a rough calculation of how to adjust for this in the setting of the infections. Will tighten this up. Please note if she gets her pump supplies i.e. if she goes home she goes back onto her pump at the original settings without changes Qualifiers: Diabetes mellitus intermediate insulin use: with intermediate use Qualified Code : E11.65 - Type 2 diabetes mellitus with hyperglycemia, with long-term current use of insulin Consultation Date/Type/Reason Admit Date/Time Sep 15, 2016 at 15:14 Initial Consult Date 09/17/16 Type of Consultation: Endocrinology Reason for Consultation Diabetes on a pump Referring Provider: FLOYD FONTANA MD 24 HR Interval Summary Constitutional: no complaints Exam/Review of Systems Vital Signs Vitals Vital Signs Date Time Temp Pulse Resp B/P Pulse Ox O2 Delivery O2 Flow Rate FiO2 09/18/16 16:36 65 09/18/16 15:35 98.6 18 119/56 100 09/18/16 13:58 2.0 09/18/16 13:57 28 09/18/16 07:45 Nasal Cannula Intake and Output 09/17/16 09/17/16 09/18/16 15:00 23:00 07:00 Intake Total 900 ml 120 ml Output Total 1800 ml 3000 ml Balance -900 ml -2880 ml Exam Constitutional: alert, oriented Respiratory: clear to auscultation, normal air movement Cardiovascular: nl pulses, regular rate and rhythm Gastrointestinal: nl liver, spleen, non-tender, soft Results Result Diagram: 09/17/16 0730 09/17/16 0730 Results 24 hrs Laboratory Tests Test 09/17/16 20:03 09/18/16 02:15 09/18/16 08:24 09/18/16 12:23 Bedside Glucose 148 278 H 298 H 299 H Test 09/18/16 17:38 Bedside Glucose 279 H Medications Medications Current Medications Ondansetron HCl (Zofran Inj) 4 mg Q6H PRN IV NAUSEA AND/OR VOMITING Last administered on 09/15/16 22:22; Admin Dose 4 MG; Start 09/15/16 at 16:30 Acetaminophen (Tylenol Tab) 650 mg Q6H PRN PO PAIN LEVEL 1-3 OR FEVER Last administered on 09/18/16 16:45; Admin Dose 650 MG; Start 09/15/16 at 16:30 Acetaminophen/ Hydrocodone Bitart (Corder (5/325)) 1 tab Q6H PRN PO MODERATE PAIN LEVEL 4-6 Last administered on 09/16/16 11:14; Admin Dose 1 TAB; Start 09/15/16 at 16:30 Morphine Sulfate (morphine) 4 mg Q4H PRN IV SEVERE PAIN LEVEL 7-10 Last administered on 09/18/16 07:30; Admin Dose 4 MG; Start 09/15/16 at 16:30 Heparin Sodium (Porcine) (Heparin (5000 Units/0.5 ml)) 5,000 unit Q12 SC Last administered on 09/18/16 09:10; Admin Dose 5,000 UNIT; Start 09/15/16 at 21:00 Amlodipine Besylate (Norvasc) 5 mg DAILY PO Last administered on 09/18/16 09: 05; Admin Dose 5 MG; Start 09/16/16 at 09:00 Aspirin (Halfprin) 81 mg DAILY PO Last administered on 09/18/16 09:04; Admin Dose 81 MG; Start 09/16/16 at 09:00 Atorvastatin Calcium (Lipitor) 80 mg QHS PO Last administered on 09/17/16 21: 12; Admin Dose 80 MG; Start 09/15/16 at 21:00 Clopidogrel Bisulfate (plaVIX) 75 mg DAILY PO Last administered on 09/18/16 08 :58; Admin Dose 75 MG; Start 09/16/16 at 09:00 Gabapentin (Neurontin) 200 mg TID PO Last administered on 09/18/16 13:22; Admin Dose 200 MG; Start 09/15/16 at 21:00 Metoprolol Tartrate (Lopressor) 25 mg BID PO Last administered on 09/18/16 09: 05; Admin Dose 25 MG; Start 09/15/16 at 21:00 Sertraline HCl (Zoloft) 50 mg DAILY PO Last administered on 09/18/16 08:59; Admin Dose 50 MG; Start 09/16/16 at 09:00 Fenofibrate (Tricor) 145 mg DAILY PO Last administered on 09/18/16 08:59; Admin Dose 145 MG; Start 09/16/16 at 09:00 Niacin (Niaspan) 1,000 mg QHS PO Last administered on 09/17/16 21:12; Admin Dose 1,000 MG; Start 09/15/16 at 21:00 Fish Oil (Fish Oil) 2,000 mg BID PO Last administered on 09/18/16 09:04; Admin Dose 2,000 MG; Start 09/15/16 at 21:00 Miscellaneous Information 8 mg QHS XX ; Start 09/15/16 at 21:00 Hydralazine HCl (Apresoline) 10 mg Q6H PRN IV SBP>160; Start 09/15/16 at 16:30 Bumetanide (Bumex) 2 mg BID PO Last administered on 09/18/16 09:05; Admin Dose 2 MG; Start 09/15/16 at 21:00 Miscellaneous Information (*Order Clarification Bulletin) MEDICATION REQUIRES CLARIFICATION: Q8H XX ; Start 09/15/16 at 18:00 Miscellaneous Information 1 ea NOTE XX ; Start 09/15/16 at 18:00 Glucose (Glutose) 15 gm Q15M PRN PO DECREASED GLUCOSE; Start 09/15/16 at 18:00 Glucose (Glutose) 22.5 gm Q15M PRN PO DECREASED GLUCOSE; Start 09/15/16 at 18:00 Dextrose (D50w Syringe) 25 ml Q15M PRN IV DECREASED GLUCOSE Last administered on 09/16/16 04:14; Admin Dose 25 ML; Start 09/15/16 at 18:00 Dextrose (D50w Syringe) 50 ml Q15M PRN IV DECREASED GLUCOSE; Start 09/15/16 at 18:00 Glucagon (Glucagen) 1 mg Q15M PRN IM DECREASED GLUCOSE; Start 09/15/16 at 18:00 Glucose (Glutose) 15 gm Q15M PRN BUCCAL DECREASED GLUCOSE; Start 09/15/16 at 18: 00 Cholecalciferol (Vitamin D) 1,000 unit DAILY PO Last administered on 09/18/16 09:04; Admin Dose 1,000 UNIT; Start 09/16/16 at 09:00 Collagenase (Santyl) 1 applic DAILY TOP Last administered on 09/18/16 09:15; Admin Dose 1 APPLIC; Start 09/16/16 at 09:00 Diagnostic Test (Pha) 1 ea 1 ea 02 XX ; Start 09/18/16 at 02:00 Ertapenem/Sodium Chloride (Invanz/NS) 100 ml @ 200 mls/hr Q24H IVPB Last administered on 09/18/16 13:23; Admin Dose 200 MLS/HR; Start 09/17/16 at 14:00 Mupirocin (Bactroban) 1 applic BID TOP Last administered on 09/18/16 09:15; Admin Dose 1 APPLIC; Start 09/17/16 at 21:00 Baclofen (Lioresal) 10 mg TID PRN PO muscle spasm Last administered on 16:46; Admin Dose 10 MG; Start 09/17/16 at 17:30 Lidocaine 1 applic 1 applic QID PRN TOP PAIN; Start 09/17/16 at 20:30 Vancomycin HCl 2 gm/Sodium Chloride 500 ml @ 125 mls/hr NOW IVPB ; Start at 18:00; Stop 09/18/16 at 23:00 Vancomycin HCl/ Sodium Chloride (Vancocin/NS) 500 ml @ 125 mls/hr Q36H IVPB ; Start 09/20/16 at 06:00 TYRELL MAYORGA MD Sep 18, 2016 18:18
[2016-09-18] MEDS: ROPINIROLE HCL 8 MG XX SCH (21:00)
[2016-09-18] MEDS: ATORVASTATIN 80 MG TAB PO SCH (21:04)
[2016-09-18] MEDS: NIACIN (ER) 500 MG TAB PO SCH (21:59)
[2016-09-19] VITALS (14 sets, daily range): BP systolic 99–151; BP diastolic 49–67; PULSE 50–64; RESP 20–22
[2016-09-19] MEDS: [UNRECOGNIZED DRUG - REMARK] XX SCH ×3 (02:00→17:55)
[2016-09-19] MEDS: ACCU-CHEK XX SCH ×4 (02:00→19:55)
[2016-09-19] MEDS: LEVOTHYROXINE 100 MCG TAB PO SCH (06:14)
[2016-09-19] MEDS: PANTOPRAZOLE (EC) 40 MG TAB PO SCH (06:14)
[2016-09-19] MEDS: BACLOFEN 10 MG TAB PO PRN (06:28)
[2016-09-19 07:23] LABS: ADD SCAN DIFF NO
[2016-09-19 07:27] LABS: BASOPHILS % 0.3 % (0.0-2.0); EOSINOPHILS # 0.2 10^3/ul (0.0-0.5); HEMATOCRIT 30.5 % (37.0-47.0); HEMOGLOBIN 9.3 g/dl (12.0-16.0); LYMPHOCYTES # 0.9 10^3/ul (0.8-2.9); LYMPHOCYTES % 13.1 % (15.0-51.0); MEAN CORPUSCULAR HEMOGLOBIN 27.6 pg (29.0-33.0); MEAN CORPUSCULAR HGB CONC 30.5 g/dl (32.0-37.0); MEAN CORPUSCULAR VOLUME 90.5 fl (82.0-101.0); MEAN PLATELET VOLUME 9.6 fl (7.4-10.4); MONOCYTE # 0.8 10^3/ul (0.3-0.9); MONOCYTES % 10.8 % (0.0-11.0); NEUTROPHIL # 5.1 10^3/ul (1.6-7.5); NEUTROPHILS % 72.1 % (39.0-77.0); PLATELET COUNT 339 10^3/UL (140-415); RED BLOOD COUNT 3.37 10^6/ul (4.20-5.40); RED CELL DISTRIBUTION WIDTH 15.4 % (11.5-14.5)
[2016-09-19 07:34] LABS: POTASSIUM 4.9 mmol/L (3.5-5.1)
[2016-09-19 07:36] LABS: CREATININE 1.93 mg/dl (0.44-1.00)
[2016-09-19 07:37] LABS: CALCIUM 9.4 mg/dl (8.4-10.2); MAGNESIUM 2.5 mg/dl (1.7-2.5)
[2016-09-19] MEDS: BUMETANIDE 1 MG TAB PO SCH ×2 (08:31→20:53)
[2016-09-19] MEDS: FISH OIL 1,000 MG CAP PO SCH ×2 (08:32→20:52)
[2016-09-19] MEDS: ASPIRIN (EC) 81 MG TAB PO SCH (08:32)
[2016-09-19] MEDS: GABAPENTIN 100 MG CAP PO SCH ×3 (08:33→20:53)
[2016-09-19] MEDS: CHOLECALCIFEROL 1,000 UNIT TAB PO SCH (08:33)
[2016-09-19] MEDS: FENOFIBRATE 145 MG TAB PO SCH (08:33)
[2016-09-19] MEDS: CLOPIDOGREL 75 MG TAB PO SCH (08:33)
[2016-09-19] MEDS: SERTRALINE 50 MG TAB PO SCH (08:33)
[2016-09-19] MEDS: AMLODIPINE 5 MG TAB PO SCH (08:34)
[2016-09-19] MEDS: METOPROLOL 25 MG TAB PO SCH ×2 (08:35→20:56)
[2016-09-19] MEDS: INSULIN GLARGINE [LANtus] 3 ML PEN SC SCH ×2 (08:46→20:45)
[2016-09-19] MEDS: INSULIN ASPART [NOVOLOG] 3 ML PEN SC SCH ×4 (08:46→20:47)
[2016-09-19] MEDS: HEPARIN 5,000 UNIT/0.5 ML VIAL SC SCH ×2 (08:46→20:47)
[2016-09-19] MEDS: MUPIROCIN 2% 22 GM OINT TOP SCH ×2 (08:47→20:55)
[2016-09-19] MEDS: COLLAGENASE 30 GM TUBE TOP SCH (08:47)
[2016-09-19] MEDS: ALBUTEROL/IPRATROPIUM (NEB) 3 ML AMP HHN SCH ×3 (09:28→21:06)
[2016-09-19] MEDS: ERTAPENEM SODIUM 1 GM in SOD CHLORIDE 0.9% 100 ML IVPB SCH (14:57)
--- NOTE | 2016-09-19 15:30 | PN ---
DATE: 09/19/2016 INFECTIOUS DISEASE PROGRESS NOTE SUBJECTIVE: No acute events. The patient is sleeping. No fevers. No events, per report. WBC tod ay 7. No shift, no bands. BUN 45, creatinine 1.93. MICROBIOLOGY: Blood cultures repeated on 09/18/2016 negative. Urine culture grew E. coli ESBL. Ri ght ankle wound culture grew MRSA, enterococcus, Corynebacterium group JK and coagulase-negative sta ph species. ANTIMICROBIALS: The patient remains on: 1. IV vancomycin. 2. Invanz. PHYSICAL EXAMINATION: GENERAL: Obese, well-developed, elderly woman, who is lying comfortably in bed. HEENT: Head atraumatic, normocephalic. Sclerae anicteric. Buccal mucosa dry. NECK: Supple. CHEST: Chest rise is symmetrical. Breath sounds clear. HEART: S1, S2. ABDOMEN: Soft, bowel tones present. EXTREMITIES: With right lower extremity dressing intact. ASSESSMENT: 1. Right lower extremity acute on chronic cellulitis, with chronic wounds. Status post debridemen t. 2. Escherichia coli extended-spectrum beta-lactamase urinary tract infection. 3. Methicillin-resistant Staphylococcus aureus nares colonization. 4. Coagulase-negative Staphylococcus bacteremia, possibly contaminant, with repeat blood cultures n egative. 5. Obesity. 6. Diabetes. 7. Acute on chronic kidney disease. PLAN: The patient remains stable. Repeat blood cultures negative. She is on appropriate antimicro bials. Endocrinology follows her. Per podiatry recommendation, likely will need staged debridement . Dictated By: MILKA NICOLE CAMBERING MACHINE OPERATOR for JOSE PAGAN/RO Conf#: [id number] DID#: [id number]
--- NOTE | 2016-09-19 15:34 | PDOCDIS ---
Discharge Instructions CONDITION Patient Condition: Fair HOME CARE INSTRUCTIONS: Special Diet: Carb Controlled ACTIVITY: Activity Restrictions: Special Exercises FOLLOW UP/APPOINTMENTS Appointments follow up with ID as out pt FLOYD FONTANA MD Sep 19, 2016 15:34
[2016-09-19] MEDS ORDERED: LANT3I SC (15:37)
[2016-09-19] MEDS ORDERED: NOVO3I SC (15:37)
[2016-09-19] MEDS ORDERED: Vancomycin Iv Per Pharmacy XX (15:37)
--- NOTE | 2016-09-19 17:17 | CONS ---
Date/Time of Note Date/Time of Note DATE: 09/19/16 TIME: 17:14 Assessment/Plan Assessment/Plan Problems: (1) Type 2 diabetes mellitus with hyperglycemia Status: Chronic Comment: Since being off insulin pump, glucose levels OOC. Starting mealtime Novolog tonight. When pt. d/c'ed will resume insulin pump. Qualifiers: Diabetes mellitus intermediate project manager insulin use: with intermediate project manager use Qualified Code : E11.65 - Type 2 diabetes mellitus with hyperglycemia, with long-term current use of insulin Consultation Date/Type/Reason Admit Date/Time Sep 15, 2016 at 15:14 Initial Consult Date 09/17/16 Type of Consultation: Endocrinology Reason for Consultation T2DM management Referring Provider: FLOYD FONTANA MD 24 HR Interval Summary Constitutional: improved (wants to go home), no complaints Detailed Summary Respiratory: no complaints Cardiovascular: no complaints Gastrointestinal: no complaints Genitourinary: no complaints Musculoskeletal: no complaints Neurologic: no complaints Exam/Review of Systems Vital Signs Vitals VS - Last 72 Hours, by Label Date Time Temp Pulse Resp B/P Pulse Ox O2 Delivery O2 Flow Rate FiO2 09/19/16 16:46 58 09/19/16 15:37 98.0 62 21 144/60 95 09/19/16 15:26 56 20 98 Nasal Cannula 3.0 32 09/19/16 12:16 64 09/19/16 11:16 98.2 67 21 99/49 96 09/19/16 09:28 53 18 97 Nasal Cannula 3.0 09/19/16 08:16 53 09/19/16 07:36 98.5 65 21 151/67 98 09/19/16 07:30 Nasal Cannula 3.0 09/19/16 04:46 51 09/19/16 04:15 3.0 09/19/16 03:53 98.4 60 22 122/58 100 09/19/16 03:34 59 98 30 09/19/16 01:17 53 09/19/16 01:10 61 97 30 09/18/16 23:52 98.7 54 18 122/58 98 09/18/16 23:20 58 98 30 09/18/16 21:38 62 98 30 09/18/16 21:32 2.0 09/18/16 21:28 62 18 97 Nasal Cannula 2.0 28 09/18/16 20:38 63 09/18/16 20:00 Nasal Cannula 3.0 09/18/16 19:39 98.6 64 21 113/53 98 09/18/16 16:36 65 09/18/16 15:35 98.6 61 18 119/56 100 09/18/16 13:58 2.0 09/18/16 13:57 60 18 98 28 09/18/16 12:18 55 09/18/16 11:22 98.6 58 18 115/56 97 09/18/16 08:25 66 09/18/16 08:07 90 22 91 21 09/18/16 08:01 98.4 63 18 128/59 98 09/18/16 07:45 Nasal Cannula 3.0 09/18/16 04:46 70 09/18/16 04:00 98.0 95 18 124/68 94 09/18/16 02:57 2.0 09/18/16 00:00 69 09/18/16 00:00 98.3 78 18 126/64 93 09/17/16 22:53 2.0 09/17/16 22:14 69 96 30 09/17/16 21:14 79 09/17/16 20:00 98.2 81 18 128/62 98 09/17/16 20:00 Nasal Cannula 3.0 09/17/16 19:46 88 20 88 21 09/17/16 16:26 73 09/17/16 16:14 98.9 71 19 123/57 96 09/17/16 14:17 69 20 87 21 09/17/16 14:17 87 21 09/17/16 12:25 65 09/17/16 12:02 98.4 62 19 121/56 93 09/17/16 08:31 60 09/17/16 08:02 98.2 64 18 134/60 97 09/17/16 07:51 64 18 96 Nasal Cannula 2.0 09/17/16 07:51 96 2.0 09/17/16 07:19 Nasal Cannula 3.0 09/17/16 05:40 98.0 55 20 128/60 99 09/17/16 04:07 56 09/17/16 03:31 2.0 09/17/16 01:25 72 95 35 09/17/16 00:18 67 09/17/16 00:08 98.3 69 18 127/58 95 09/16/16 22:48 75 96 35 09/16/16 20:35 Nasal Cannula 3.0 09/16/16 20:27 98.5 61 19 128/61 99 09/16/16 20:07 63 09/16/16 20:00 65 18 96 Nasal Cannula 09/16/16 19:59 2.0 Vital Signs Date Time Temp Pulse Resp B/P Pulse Ox O2 Delivery O2 Flow Rate FiO2 09/19/16 16:46 58 09/19/16 15:37 98.0 21 144/60 95 09/19/16 15:26 Nasal Cannula 3.0 32 Intake and Output 09/18/16 09/18/16 09/19/16 15:00 23:00 07:00 Intake Total 1050 ml 900 ml Output Total 2200 ml 1900 ml Balance -1150 ml -1000 ml Exam Constitutional: alert, obese, oriented Psych: nl mood/affect, no complaints Respiratory: clear to auscultation, normal air movement Cardiovascular: regular rate and rhythm, No edema, No murmurs/extra sounds, No rub Gastrointestinal: bowel sounds, nl liver, spleen, non-tender, soft, No mass, No rebound or guarding Musculoskeletal: nl extremities to inspection Extremities: normal pulses, No clubbing, No cyanosis, No edema Neurological: SEISMIC INTERPRETER II-XII intact, nl mental status, nl speech, nl strength Additional Comments Bedside Glucose - 72 Hours Test 09/16/16 20:24 09/16/16 22:17 09/17/16 07:45 09/17/16 12:20 Bedside Glucose 68mg/dL (70-220) L 173mg/dL (70-220) 81mg/dL (70-220) 150mg/dL (70-220) Test 09/17/16 14:14 09/17/16 17:16 09/17/16 20:03 09/18/16 02:15 Bedside Glucose 118mg/dL (70-220) 82mg/dL (70-220) 148mg/dL (70-220) 278mg/dL (70-220) H Test 09/18/16 08:24 09/18/16 12:23 09/18/16 17:38 09/18/16 21:00 Bedside Glucose 298mg/dL (70-220) H 299mg/dL (70-220) H 279mg/dL (70-220) H 268mg/dL (70-220) H Test 09/19/16 01:14 09/19/16 08:00 09/19/16 12:11 Bedside Glucose 285mg/dL (70-220) H 244mg/dL (70-220) H 298mg/dL (70-220) H Results Result Diagram: 09/19/16 0644 09/19/16 0644 Results 24 hrs Laboratory Tests Test 09/18/16 17:38 09/18/16 21:00 09/19/16 01:14 09/19/16 06:44 Bedside Glucose 279 H 268 H 285 H White Blood Count 7.0 Red Blood Count 3.37 L Hemoglobin 9.3 L Hematocrit 30.5 L Mean Corpuscular Volume 90.5 Mean Corpuscular Hemoglobin 27.6 L Mean Corpuscular Hemoglobin Concent 30.5 L Red Cell Distribution Width 15.4 H Platelet Count 339 # Mean Platelet Volume 9.6 Neutrophils % 72.1 Lymphocytes % 13.1 L Monocytes % 10.8 Eosinophils % 3.0 Basophils % 0.3 Nucleated Red Blood Cells % 0.0 Neutrophils # 5.1 Lymphocytes # 0.9 Monocytes # 0.8 Eosinophils # 0.2 Basophils # 0.0 Nucleated Red Blood Cells # 0.0 Sodium Level 140 Potassium Level 4.9 Chloride Level 90 #L Carbon Dioxide Level 39 H Anion Gap 16 Blood Urea Nitrogen 45 H Creatinine 1.93 H Glucose Level 253 #H Calcium Level 9.4 Magnesium Level 2.5 Test 09/19/16 08:00 09/19/16 12:11 Bedside Glucose 244 H 298 H Medications Medications Current Medications Ondansetron HCl (Zofran Inj) 4 mg Q6H PRN IV NAUSEA AND/OR VOMITING Last administered on 09/15/16 22:22; Admin Dose 4 MG; Start 09/15/16 at 16:30 Acetaminophen (Tylenol Tab) 650 mg Q6H PRN PO PAIN LEVEL 1-3 OR FEVER Last administered on 09/18/16 16:45; Admin Dose 650 MG; Start 09/15/16 at 16:30 Acetaminophen/ Hydrocodone Bitart ([place] (5/325)) 1 tab Q6H PRN PO MODERATE PAIN LEVEL 4-6 Last administered on 09/16/16 11:14; Admin Dose 1 TAB; Start 09/15/16 at 16:30 Morphine Sulfate (morphine) 4 mg Q4H PRN IV SEVERE PAIN LEVEL 7-10 Last administered on 09/18/16 07:30; Admin Dose 4 MG; Start 09/15/16 at 16:30 Heparin Sodium (Porcine) (Heparin (5000 Units/0.5 ml)) 5,000 unit Q12 SC Last administered on 09/19/16 08:46; Admin Dose 5,000 UNIT; Start 09/15/16 at 21:00 Amlodipine Besylate (Norvasc) 5 mg DAILY PO Last administered on 09/19/16 08: 34; Admin Dose 5 MG; Start 09/16/16 at 09:00 Aspirin (Halfprin) 81 mg DAILY PO Last administered on 09/19/16 08:32; Admin Dose 81 MG; Start 09/16/16 at 09:00 Atorvastatin Calcium (Lipitor) 80 mg QHS PO Last administered on 09/18/16 21: 04; Admin Dose 80 MG; Start 09/15/16 at 21:00 Clopidogrel Bisulfate (plaVIX) 75 mg DAILY PO Last administered on 09/19/16 08 :33; Admin Dose 75 MG; Start 09/16/16 at 09:00 Gabapentin (Neurontin) 200 mg TID PO Last administered on 09/19/16 12:13; Admin Dose 200 MG; Start 09/15/16 at 21:00 Metoprolol Tartrate (Lopressor) 25 mg BID PO Last administered on 09/19/16 08: 35; Admin Dose 25 MG; Start 09/15/16 at 21:00 Sertraline HCl (Zoloft) 50 mg DAILY PO Last administered on 09/19/16 08:33; Admin Dose 50 MG; Start 09/16/16 at 09:00 Fenofibrate (Tricor) 145 mg DAILY PO Last administered on 09/19/16 08:33; Admin Dose 145 MG; Start 09/16/16 at 09:00 Niacin (Niaspan) 1,000 mg QHS PO Last administered on 09/18/16 21:59; Admin Dose 1,000 MG; Start 09/15/16 at 21:00 Fish Oil (Fish Oil) 2,000 mg BID PO Last administered on 09/19/16 08:32; Admin Dose 2,000 MG; Start 09/15/16 at 21:00 Miscellaneous Information 8 mg QHS XX ; Start 09/15/16 at 21:00 Hydralazine HCl (Apresoline) 10 mg Q6H PRN IV SBP>160; Start 09/15/16 at 16:30 Bumetanide (Bumex) 2 mg BID PO Last administered on 09/19/16 08:31; Admin Dose 2 MG; Start 09/15/16 at 21:00 Miscellaneous Information (*Order Clarification Bulletin) MEDICATION REQUIRES CLARIFICATION: Q8H XX ; Start 09/15/16 at 18:00 Miscellaneous Information 1 ea NOTE XX ; Start 09/15/16 at 18:00 Glucose (Glutose) 15 gm Q15M PRN PO DECREASED GLUCOSE; Start 09/15/16 at 18:00 Glucose (Glutose) 22.5 gm Q15M PRN PO DECREASED GLUCOSE; Start 09/15/16 at 18:00 Dextrose (D50w Syringe) 25 ml Q15M PRN IV DECREASED GLUCOSE Last administered on 09/16/16 04:14; Admin Dose 25 ML; Start 09/15/16 at 18:00 Dextrose (D50w Syringe) 50 ml Q15M PRN IV DECREASED GLUCOSE; Start 09/15/16 at 18:00 Glucagon (Glucagen) 1 mg Q15M PRN IM DECREASED GLUCOSE; Start 09/15/16 at 18:00 Glucose (Glutose) 15 gm Q15M PRN BUCCAL DECREASED GLUCOSE; Start 09/15/16 at 18: 00 Cholecalciferol (Vitamin D) 1,000 unit DAILY PO Last administered on 09/19/16 08:33; Admin Dose 1,000 UNIT; Start 09/16/16 at 09:00 Collagenase (Santyl) 1 applic DAILY TOP Last administered on 09/19/16 08:47; Admin Dose 1 APPLIC; Start 09/16/16 at 09:00 Diagnostic Test (Pha) 1 ea 1 ea 02 XX ; Start 09/18/16 at 02:00 Ertapenem/Sodium Chloride (Invanz/NS) 100 ml @ 200 mls/hr Q24H IVPB Last administered on 09/19/16 14:57; Admin Dose 200 MLS/HR; Start 09/17/16 at 14:00 Mupirocin (Bactroban) 1 applic BID TOP Last administered on 09/19/16 08:47; Admin Dose 1 APPLIC; Start 09/17/16 at 21:00 Baclofen (Lioresal) 10 mg TID PRN PO muscle spasm Last administered on 06:28; Admin Dose 10 MG; Start 09/17/16 at 17:30 Lidocaine 1 applic 1 applic QID PRN TOP PAIN; Start 09/17/16 at 20:30 Vancomycin HCl/ Sodium Chloride (Vancocin/NS) 500 ml @ 125 mls/hr Q36H IVPB ; Start 09/20/16 at 06:00 Insulin Glargine (Lantus) 24 unit BID@08,20 SC Last administered on 09/19/16 08:46; Admin Dose 24 UNIT; Start 09/18/16 at 20:00 RADHA MORENO MD Sep 19, 2016 17:17
[2016-09-19] MEDS ORDERED: INSULIN ASPART [NOVOLOG] 3 ML PEN SC SCH (18:30)
--- NOTE | 2016-09-19 18:54 | DS ---
DATE OF ADMISSION: 09/15/2016 DATE OF DISCHARGE: 09/19/2016 CONSULTANTS: 1. Infectious disease. 2. Dr. Jamal Iraheta. 3. Dr. Stefan Ronquillo. DISCHARGE DIAGNOSES: 1. Sepsis ____ septic shock, likely secondary to healthcare-associated pneumonia. 2. Urinary tract infection versus right foot/ankle cellulitis. 3. Healthcare-associated pneumonia with pleural effusion. 4. Urinary tract infection. 5. Nonhealing right leg wound. Patient did not qualify for right ankle secondary to prior surgerie s. 6. Diabetes mellitus type 1 on insulin pump at this time. ____ was consulted. 7. Dyslipidemia. 8. Coronary artery disease. 9. Depression. 10. Anxiety. 11. Hypothyroidism. 12. Morbid obesity. 13. Chronic kidney disease. 14. Bacteremia, gram positive culture. 15. Debility. 16. Insomnia. MEDICATIONS: 1. Tylenol. 2. DuoNeb. 3. Norvasc. 4. Aspirin. 5. Lipitor. 6. Diclofenac. 7. Baclofen. 8. Bumex. 9. Vitamin D. 10. Plavix. 11. Santyl. 12. Insulin sliding scale. 13. Tricor. 14. Imipenem 1 gram x7 days. 15. Fish oil. 16. Gabapentin. 17. Heparin. 18. [place]. 19. Insulin sliding scale via NovoLog. 20. Levothyroxine. 21. Lidocaine. 22. Metoprolol. 23. Ropinirole. 24. Atrovent. 25. Niacin. 26. Lovaza. 27. Protonix. 28. Zoloft 29. Vancomycin x10 days. 30. Colace. 31. Temazepam. DIET: Low carb, low salt. ACTIVITY: With assistance, PT, OT evaluate and treat. HOSPITAL COURSE: This is a very pleasant 71-year-old female with past medical history of insulin-de pendent diabetes mellitus on insulin pump, coronary artery disease status post coronary artery stent in 2012, dyslipidemia, chronic kidney disease, obesity, hypothyroidism, depression, anxiety, chroni c indwelling Garcia catheter, morbid obesity, wheelchair bound, depression, diabetic neuropathy, diab etic nephropathy, who was brought in from assisted living because of fever, chills and having dry co ugh. Patient has been having these symptoms for 3 days and has been getting worse, has been decreas ed oral intake, temperature 104 axillary. Also patient has had right tibial plateau fracture on . She was treated conservatively, right knee immobilizer and has been having right ankle ulc er and wound. Podiatry, infectious disease doctor was consulted. Patient was found to have leukocy tosis with a neutrophil count 92% with no evidence of lactic acidosis. MRI of the ankle was recomme nded by radiology, although the patient does not qualify for an MRI because of her prior surgeries a nd having metal in her right lower extremity. The patient was started on Zosyn and was transitioned to IV vancomycin and Invanz. The patient was found to have gram positive methicillin-resistant Sta phylococcus aureus, coagulase negative Staphylococcus, Enterococcus species and corynebacterium jeik eium in her wound culture, E. coli in urine culture and coagulase negative staph on blood culture. The patient was also seen and evaluated by podiatry for her right ankle ulcer which has agreed to co ntinue IV antibiotics and wound care. Regarding her diabetes mellitus, the patient was seen and ambreen luated by freezer laboratory technician and cashier courtesy booth. Her insulin pump was reevaluated and set by the di abetic educator as her glucose has been mildly elevated. Her hemoglobin was found to be 7.4. Today , her glucose is running between 268, 285, 253, 244, 298. At this time, I have increased her Lantus from 24 units to 28 units and increased her premeal from 9 to 10 units. Her blood pressure has bee n well controlled on medical management 155/67, heart rate of 67, temperature 98.2, saturating 96%. She has been continued on aggressive IV antibiotics, which at this time has been transitioned to IV Invanz and vancomycin by infectious disease doctor. Regarding her dyslipidemia, the patient has be en continued on statin. The patient has been continued on her home medication at this time. As per infectious disease doctor, the patient is cleared to be transferred to [facility] facility for continuation of IV antibiotics. The patient will be placed on low carb diet. I have suggested the patient to be transferred to [facility] facility secondary to the requirement for IV antibioti cs. CONDITION AT TIME OF DISCHARGE: Stable. Dictated By: FLYOD SOTELO/RO Conf#: [id number] DID#: [id number] CC: [facility];*EndCC*
[2016-09-19] MEDS: ATORVASTATIN 80 MG TAB PO SCH (20:53)
[2016-09-19] MEDS: NIACIN (ER) 500 MG TAB PO SCH (20:53)
[2016-09-19] MEDS: ROPINIROLE HCL 8 MG XX SCH (20:55)
[2016-09-20 00:01] VITALS: PULSE 60
[2016-09-20] MEDS ORDERED: VANCOMYCIN 2 GM in SOD CHLORIDE 0.9% 500 ML IVPB SCH (06:00)
== END 2016-09-20 00:25 | DRG 871 ==
LOC: E/R 12:44 → TEL 15:14
PROVIDERS: ADMIT Family Medicine; ATTEND Family Medicine
DX: A41.1 Sepsis due to other specified staphylococcus (principal); J18.9 Pneumonia, unspecified organism; N17.9 Acute kidney failure, unspecified; E10.65 Type 1 diabetes mellitus with hyperglycemia; N18.4 Chronic kidney disease, stage 4 (severe); N39.0 Urinary tract infection, site not specified; Z68.42 Body mass index [BMI] 45.0-49.9, adult; L97.319 Non-pressure chronic ulcer of right ankle with unspecified severity; E66.01 Morbid (severe) obesity due to excess calories; E78.5 Hyperlipidemia, unspecified; Z79.4 Long term (current) use of insulin; Z96.41 Presence of insulin pump (external) (internal); G47.33 Obstructive sleep apnea (adult) (pediatric); N39.41 Urge incontinence; Z95.5 Presence of coronary angioplasty implant and graft; M81.0 Age-related osteoporosis without current pathological fracture; Z22.322 Carrier or suspected carrier of Methicillin resistant Staphylococcus aureus
CPT/HCPCS: 36415; 71010; 80048; 80053; 80061; 81001; 81003; 82652; 82962; 83036; 83605; 83735; 84100; 84439; 84443; 84484; 85025; 85610; 85730; 87040; 87070; 87081; 87086; 87400; 93005; 93922; 94640; 94660; 94664; 96374; 96375; J1335; J1644; J1815; J2270; J2405; J2543; J3370; J7030; J7040

== ENCOUNTER 2018-04-21 19:28 | Inpatient (IN) | END 2018-04-25 19:05 | disposition home or self-care (01) | DRG 698 ==

== ENCOUNTER 2018-05-13 14:18 | Inpatient (IN) | END 2018-05-17 15:15 | DRG 698 ==